=== PATIENT | male | born 1940 | race Caucasian/White ===

== ENCOUNTER 2017-03-24 06:44 | Inpatient (IN) | payer MEDICARE, BC ==
--- NOTE | 2017-03-24 07:35 | EDM.PDOC ---
ED HPI GENERAL MEDICAL PROBLEM - General Chief Complaint: General Stated Complaint: NOT FEELING WELL Time Seen by Provider: 03/24/17 07:56 Source of Information: Reports: Patient, Family History Limitations: Reports: No Limitations - History of Present Illness INITIAL COMMENTS - FREE TEXT/NARRATIVE: pt has been forgetful then usual , He has had congestion in the sinus area. He has been sob. He is blowing out thick yellow sputum. He has some ankle swelling and this may be mildly increased. Onset: Gradual Duration: Hour(s): Location: Reports: Generalized Associated Symptoms: Reports: Cough, Other (pt is forgetful recently. He recently has been more forgetful than usual. ) abdomen Pain Score (Numeric/FACES): 4 - Related Data Allergies Allergy/AdvReac Type Severity Reaction Status Date / Time azithromycin AdvReac Severe Jaundice Verified 03/24/17 13:58 Home Meds: Home Meds Omeprazole Magnesium [Prilosec Otc] 20 mg PO DAILY 05/23/14 [History] Triamcinolone Acetonide [Triamcinolone Acetonide 0.1% Crm] 1 cm TOP BID [History] Spironolactone [Aldactone] 100 mg PO DAILY 09/01/15 [History] Albuterol Sulfate [Proair Hfa] 1 - 2 puff IH Q4H PRN 03/24/17 [History] Ascorbic Acid 500 mg PO DAILY 03/24/17 [History] Escitalopram [Lexapro] 10 mg PO DAILY 03/24/17 [History] Furosemide 40 mg PO DAILY 03/24/17 [History] Multivit-Min/FA/Lycopene/Lut [Centrum Silver Tablet] 1 each PO DAILY 03/24/17 [ History] Propranolol [Inderal] 10 mg PO BID 03/24/17 [History] Past Medical History HEENT History: Reports: Cataract Cardiovascular History: Reports: Hypertension Respiratory History: Reports: Bronchitis, Recurrent Gastrointestinal History: Reports: Cirrhosis, GI Bleed, PUD Other Gastrointestinal History: fatty liver Musculoskeletal History: Reports: Arthritis Neurological History: Reports: CVA Dermatologic History: Reports: Other (See Below) Other Dermatologic History: rash back of neck - Infectious Disease History Infectious Disease History: Reports: Chicken Pox, Measles, Mumps - Past Surgical History HEENT Surgical History: Reports: Cataract Surgery GI Surgical History: Reports: Cholecystectomy, Colonoscopy, Hernia, Abdominal, Other (See Below) Social & Family History - Family History Cardiac: Reports: Blood Clots/VTE/DVT Dermatologic: Reports: Eczema - Tobacco Use Smoking Status *Q: Never Smoker Used Tobacco, but Quit: Yes Month Tobacco Last Used: Aug 1977 - Alcohol Use Days Per Week of Alcohol Use: 0 - Recreational Drug Use Recreational Drug Use: No ED ROS GENERAL - Review of Systems Review Of Systems: See Below Constitutional: Reports: No Symptoms HEENT: Reports: No Symptoms, Sinus Problem, Other Respiratory: Reports: No Symptoms Endocrine: Reports: No Symptoms GI/Abdominal: Reports: Other (pt has a known history of cirrohosis of the liver) : Reports: No Symptoms Musculoskeletal: Reports: No Symptoms Skin: Reports: No Symptoms Neurological: Reports: No Symptoms Psychiatric: Reports: Anxiety ED EXAM, GENERAL - Physical Exam Exam: See Below Free Text/Narrative:: pt arrived with increased weakness. He is having difficulty getting in and out of a chair by himself. He has had a couple of falls in the last week, He has had a cough and has been raising some yellow sputum. He has been very forgetful which is unusual for him.He has a known diagnosis of cirrohosis. Exam Limited By: No Limitations General Appearance: Alert, No Apparent Distress, Other (pupils are equal and reactive. ) Ears: Normal External Exam Nose: Normal Inspection Throat/Mouth: Normal Inspection Head: Atraumatic Neck: Carotid Bruit Respiratory/Chest: No Respiratory Distress Cardiovascular: Regular Rate, Rhythm GI/Abdominal: Soft, Non-Tender (Male) Exam: Deferred Rectal (Males) Exam: Deferred Back Exam: Normal Inspection Extremities: Pedal Edema, Other (pt has plus 1 edema, ) Neurological: Alert, Oriented, Other (pt is having difficulty recalling th e events of the past day. ) Course - Vital Signs Last Recorded V/S: Last Vital Signs Temp 36.6 C 03/25/17 03:00 Pulse 58 L 03/25/17 03:00 Resp 17 03/25/17 03:00 BP 126/58 L 03/25/17 03:00 Pulse Ox 96 03/25/17 03:00 Orthostatic Blood Pressure [ 111/63 Standing] Orthostatic Blood Pressure [ 115/66 Sitting] Orthostatic Blood Pressure [ 130/60 Supine] - Orders/Labs/Meds Orders: Active Orders 24 hr Category Date Time Status CULTURE BLOOD [BC] Urgent Lab 03/24/17 10:05 Received CULTURE BLOOD [BC] Urgent Lab 03/24/17 10:08 Received Blood Culture x2 Reflex Set [OM.PC] Urgent Oth 03/24/17 10:01 Ordered Medication Orders Acetaminophen (Tylenol) 650 mg PO Q4H PRN PRN Reason: Pain (Mild 1-3)/fever Albuterol (Proventil Neb Soln) 2.5 mg NEB Q4H PRN PRN Reason: Shortness Of Breath/wheezing Escitalopram Oxalate (Lexapro) 10 mg PO DAILY [facility] Ceftriaxone Sodium 2 gm/ (Sodium Chloride) 50 mls @ 100 mls/hr IV Q24H [facility] Ondansetron HCl (Zofran Odt) 4 mg PO Q6H PRN PRN Reason: Nausea able to take PO Pantoprazole Sodium (Protonix) 40 mg PO ACBREAKFAST [facility] Last Admin: 03/25/17 07:47 Dose: 40 mg Propranolol HCl (Inderal) 10 mg PO BID [facility] Labs: Laboratory Tests 03/24/17 03/24/17 03/24/17 Range/Units 07:34 07:34 07:58 WBC 4.7 (4.5-11.0) K/uL RBC 3.90 L (4.30-5.90) M/uL Hgb 14.7 (12.0-15.0) g/dL Hct 41.0 (40.0-54.0) % MCV 105 H (80-98) fL MCH 38 H (27-31) pg MCHC 36 (32-36) % Plt Count 89 L (150-400) K/uL Neut % (Auto) 53 (36-66) % Lymph % (Auto) 26 (24-44) % [place] % (Auto) 14 H (2-6) % Eos % (Auto) 7 H (2-4) % Baso % (Auto) 1 (0-1) % Sodium 139 L (140-148) mmol/L Potassium 3.9 (3.6-5.2) mmol/L Chloride 105 (100-108) mmol/L Carbon Dioxide 26 (21-32) mmol/L Anion Gap 11.9 (5.0-14.0) mmol/L BUN 17 (7-18) mg/dL Creatinine 1.3 (0.8-1.3) mg/dL Est Cr Clr Drug Dosing 48.34 mL/min Estimated GFR (MDRD) 54 L (>60) Glucose 88 (74-106) mg/dL Calcium 7.8 L (8.5-10.1) mg/dL Total Bilirubin 3.4 H (0.2-1.0) mg/dL AST 50 H (15-37) U/L ALT 39 (12-78) U/L Alkaline Phosphatase 93 (46-116) U/L Ammonia (11-32) mmol/L NT-Pro-B Natriuret Pep 315 (5-450) pg/mL Total Protein 5.9 L (6.4-8.2) g/dL Albumin 2.5 L (3.4-5.0) g/dL Globulin 3.4 (2.3-3.5) g/dL Albumin/Globulin Ratio 0.7 L (1.2-2.2) Lipase (73-393) U/L Urine Color Urine Appearance Urine pH (4.5-8.0) Ur Specific [place] (1.008-1.030) Urine Protein (NEGATIVE) mg/dL Urine Glucose (UA) (NEGATIVE) mg/dL Urine Ketones (NEGATIVE) mg/dL Urine Occult Blood (NEGATIVE) Urine Nitrite (NEGAITVE) Urine Bilirubin (NEGATIVE) Urine Urobilinogen (NORMAL) mg/dL Ur Leukocyte Esterase (NEGATIVE) Urine RBC (0-5) Urine WBC (0-5) Ur Epithelial Cells Amorphous Sediment Urine Bacteria Urine Mucus 03/24/17 03/24/17 03/24/17 Range/Units 07:59 08:04 08:11 WBC (4.5-11.0) K/uL RBC (4.30-5.90) M/uL Hgb (12.0-15.0) g/dL Hct (40.0-54.0) % MCV (80-98) fL MCH (27-31) pg MCHC (32-36) % Plt Count (150-400) K/uL Neut % (Auto) (36-66) % Lymph % (Auto) (24-44) % [place] % (Auto) (2-6) % Eos % (Auto) (2-4) % Baso % (Auto) (0-1) % Sodium (140-148) mmol/L Potassium (3.6-5.2) mmol/L Chloride (100-108) mmol/L Carbon Dioxide (21-32) mmol/L Anion Gap (5.0-14.0) mmol/L BUN (7-18) mg/dL Creatinine (0.8-1.3) mg/dL Est Cr Clr Drug Dosing mL/min Estimated GFR (MDRD) (>60) Glucose (74-106) mg/dL Calcium (8.5-10.1) mg/dL Total Bilirubin (0.2-1.0) mg/dL AST (15-37) U/L ALT (12-78) U/L Alkaline Phosphatase (46-116) U/L Ammonia 163 H (11-32) mmol/L NT-Pro-B Natriuret Pep (5-450) pg/mL Total Protein (6.4-8.2) g/dL Albumin (3.4-5.0) g/dL Globulin (2.3-3.5) g/dL Albumin/Globulin Ratio (1.2-2.2) Lipase 170 (73-393) U/L Urine Color Yellow Urine Appearance Slightly cloudy Urine pH 7.0 (4.5-8.0) Ur Specific [place] 1.010 (1.008-1.030) Urine Protein Negative (NEGATIVE) mg/dL Urine Glucose (UA) Normal (NEGATIVE) mg/dL Urine Ketones Negative (NEGATIVE) mg/dL Urine Occult Blood Negative (NEGATIVE) Urine Nitrite Negative (NEGAITVE) Urine Bilirubin Negative (NEGATIVE) Urine Urobilinogen 4 (NORMAL) mg/dL Ur Leukocyte Esterase Negative (NEGATIVE) Urine RBC 0-5 (0-5) Urine WBC 0-5 (0-5) Ur Epithelial Cells Few Amorphous Sediment Rare Urine Bacteria Rare Urine Mucus Not seen Meds: Medications Generic Name Dose Route Start Last Admin Trade Name Freq PRN Reason Stop Dose Admin Acetaminophen 650 mg 03/24/17 13:59 Tylenol PO Q4H PRN Pain (Mild 1-3)/fever Albuterol 2.5 mg 03/24/17 13:59 Proventil Neb Soln NEB Q4H PRN Shortness Of Breath/wheezing Escitalopram Oxalate 10 mg 03/25/17 09:00 Lexapro PO DAILY JAI Ceftriaxone Sodium 2 gm/ 50 mls @ 100 mls/hr 03/25/17 12:00 Sodium Chloride IV Q24H JAI Ondansetron HCl 4 mg 03/24/17 13:59 Zofran Odt PO Q6H PRN Nausea able to take PO Pantoprazole Sodium 40 mg 03/25/17 07:30 03/25/17 07:47 Protonix PO 40 mg ACBREAKFAST JAI Administration Propranolol HCl 10 mg 03/24/17 21:00 Inderal PO BID JAI Discontinued Medications Generic Name Dose Route Start Last Admin Trade Name Freq PRN Reason Stop Dose Admin Sodium Chloride 1,000 mls @ 200 mls/hr 03/24/17 10:15 03/24/17 10:58 Normal Saline IV 200 mls/hr ASDIRECTED JAI Administration Ceftriaxone Sodium 1 gm/ 50 mls @ 100 mls/hr 03/24/17 10:02 03/24/17 10:58 Sodium Chloride IV 03/24/17 10:31 100 mls/hr ONETIME ONE Administration Ceftriaxone Sodium 1 gm/ 50 mls @ 100 mls/hr 03/24/17 23:59 03/24/17 23:21 Sodium Chloride IV 03/25/17 00:28 100 mls/hr ONETIME ONE Administration Sodium Chloride 1,000 mls @ 125 mls/hr 03/24/17 13:59 Normal Saline IV 03/24/17 22:00 ASDIRECTED JAI Lactulose 10 gm 03/24/17 12:15 03/24/17 13:57 Chronulac PO 03/24/17 12:16 10 gm ONETIME ONE Administration - Re-Assessments/Exams Free Text/Narrative Re-Assessment/Exam: 03/24/17 09:27 pt has an elevated amonia level. His chest xray shows an infiltrate at the rt lung base. His urine is clear. A cat scan of the head is unchanged. His bilirubin is 3. Departure - Departure Time of Disposition: 03:00 Disposition: Admitted As Inpatient 67 Condition: Fair Clinical Impression: Increased ammonia level Pneumonia involving right lung Qualifiers: Pneumonia type: due to unspecified organism Lung location: lower lobe of lung Qualified Code(s): J18.1 - Lobar pneumonia, unspecified organism Cirrhosis of liver Qualifiers: Hepatic cirrhosis type: other cirrhosis Qualified Code(s): K74.69 - Other cirrhosis of liver - Discharge Information - My Orders Last 24 Hours: My Active Orders 03/24/17 10:01 Blood Culture x2 Reflex Set [OM.PC] Urgent 03/24/17 10:05 CULTURE BLOOD [BC] Urgent 03/24/17 10:08 CULTURE BLOOD [BC] Urgent - Assessment/Plan Last 24 Hours: My Active Orders 03/24/17 10:01 Blood Culture x2 Reflex Set [OM.PC] Urgent 03/24/17 10:05 CULTURE BLOOD [BC] Urgent 03/24/17 10:08 CULTURE BLOOD [BC] Urgent
--- NOTE | 2017-03-24 08:49 | CR ---
Low lung volumes. Heart size is mildly enlarged. Streaky density within the right middle lobe indicat es atelectasis or infiltrate. Recommend radiographic follow-up. Remote right rib fractures.
--- NOTE | 2017-03-24 09:02 | CT ---
CT head without contrast. Total DLP 763. Findings: There is mild-moderate atrophy. No mass effect or midline shift. No hemorrhage. No subacute territorial infarct. Trace fluid within the right mastoid air cells. This was evident on remote exam inations as well. Calvarium is intact. Impression: 1. No acute intracranial process by CT
[2017-03-24] MEDS ORDERED: cefTRIAXone 1 GM in Sodium Chloride 0.9% 50 ML IV ONE ×2 (10:02→23:59)
[2017-03-24] MEDS ORDERED: Sodium Chloride 0.9% 1,000 ML IV SCH ×2 (10:15→13:59)
--- NOTE | 2017-03-24 12:09 | PCM.HP ---
H&P History of Present Illness - General Date of Service: 03/24/17 Admit Problem/Dx: Admission Diagnosis/Problem Admission Diagnosis/Problem Right lower lobe pneumonia Source of Information: Patient, Provider History Limitations: Reports: No Limitations - History of Present Illness Initial Comments - Free Text/Narative: Donny presents to the emergency room today with several days of weakness. He reports a slow decline over the last several days with increasing weakness and a couple of falls. He feels lightheaded when he is standing up. He also reports a mild nonproductive cough over the past 24 hours. He doesn't think that he's had any fevers. He has mild shortness of breath. No report of chest pain or abdominal pain. Appetite has been normal. He has had normal bowel movements. No complaints of urinary frequency or urgency. His family thinks that maybe he's been a little more confused. He reports a normal sleep pattern. Workup in the emergency room revealed an elevated ammonia level at greater than 150 as well as possibly a right lower lobe pneumonia. He is weak and has positive orthostatic vitals and is not safe for outpatient management at this time. abdomen Pain Score (Numeric/FACES): 4 - Related Data Allergies/Adverse Reactions: Allergies Allergy/AdvReac Type Severity Reaction Status Date / Time azithromycin AdvReac Severe Jaundice Verified 03/24/17 13:58 Home Medications: Home Meds Omeprazole Magnesium [Prilosec Otc] 20 mg PO DAILY 05/23/14 [History] Triamcinolone Acetonide [Triamcinolone Acetonide 0.1% Crm] 1 cm TOP BID [History] Spironolactone [Aldactone] 100 mg PO DAILY 09/01/15 [History] Albuterol Sulfate [Proair Hfa] 1 - 2 puff IH Q4H PRN 03/24/17 [History] Ascorbic Acid 500 mg PO DAILY 03/24/17 [History] Escitalopram [Lexapro] 10 mg PO DAILY 03/24/17 [History] Furosemide 40 mg PO DAILY 03/24/17 [History] Multivit-Min/FA/Lycopene/Lut [Centrum Silver Tablet] 1 each PO DAILY 03/24/17 [ History] Propranolol [Inderal] 10 mg PO BID 03/24/17 [History] Past Medical History HEENT History: Reports: Cataract Cardiovascular History: Reports: Hypertension Respiratory History: Reports: Bronchitis, Recurrent Gastrointestinal History: Reports: Cirrhosis, GI Bleed, PUD Other Gastrointestinal History: fatty liver Genitourinary History: Reports: Urinary Incontinence Musculoskeletal History: Reports: Arthritis Neurological History: Reports: CVA Dermatologic History: Reports: Other (See Below) Other Dermatologic History: rash back of neck - Infectious Disease History Infectious Disease History: Reports: Chicken Pox, Measles, Mumps - Past Surgical History HEENT Surgical History: Reports: Cataract Surgery GI Surgical History: Reports: Cholecystectomy, Colonoscopy, Hernia, Abdominal, Other (See Below) Social & Family History - Family History Cardiac: Reports: Blood Clots/VTE/DVT Dermatologic: Reports: Eczema - Tobacco Use Smoking Status *Q: Never Smoker Used Tobacco, but Quit: Yes Month Tobacco Last Used: Aug 1977 - Caffeine Use Caffeine Use: Reports: Coffee Other Caffeine Use: very little - Alcohol Use Days Per Week of Alcohol Use: 0 - Recreational Drug Use Recreational Drug Use: No H&P Review of Systems - Review of Systems: Review Of Systems: See Below Free Text/Narrative: A complete 12 point review of systems was obtained. Pertinent positives and negatives are noted in the history of present illness. All other systems were reviewed and were negative except as noted. Exam - Exam Exam: See Below - Vital Signs Vital Signs: Last Vital Signs Temp 36.7 C 03/24/17 07:37 Pulse 68 03/24/17 07:37 Resp 18 03/24/17 07:37 BP 121/68 03/24/17 07:37 Pulse Ox 95 03/24/17 07:37 Orthostatic Blood Pressure [ 111/63 Standing] Orthostatic Blood Pressure [ 115/66 Sitting] Orthostatic Blood Pressure [ 130/60 Supine] Weight: 121.109 kg - Exam Quality Assessment: No: Supplemental Oxygen General: Alert, Oriented, Cooperative. No: Mild Distress HEENT: Conjunctiva Clear, Scleral Icterus. No: Mucosa Moist & [place] (dry) Neck: Supple, Trachea Midline. No: Lymphadenopathy Lungs: Normal Respiratory Effort, Rales (few right lung base) Cardiovascular: Regular Rhythm, Tachycardia GI/Abdominal Exam: Normal Bowel Sounds, Soft, Distended (mild), Tender (mild diffuse tenderness). No: Guarding, Rebound Extremities: Pedal Edema (pitting edema lower third of both shins). No: Increased Warmth Peripheral Pulses: 1+: Dorsalis Pedis (L), Dorsalis Pedis (R) Skin: Warm, Dry, Ecchymosis (right forearm) Neuro Extensive - Mental Status: Alert, Nl Response to Commands Neuro Extensive - Motor, Sensory, Reflexes: CN II-XII Intact, Tremor (mild asterixis ). No: Dysarthria, Abnormal Motor Psychiatric: Alert, Normal Affect - Patient Data Lab Results Last 24 hrs: Laboratory Results - last 24 hr 03/24/17 03/24/17 03/24/17 Range/Units 07:34 07:34 07:58 WBC 4.7 (4.5-11.0) K/uL RBC 3.90 L (4.30-5.90) M/uL Hgb 14.7 (12.0-15.0) g/dL Hct 41.0 (40.0-54.0) % MCV 105 H (80-98) fL MCH 38 H (27-31) pg MCHC 36 (32-36) % Plt Count 89 L (150-400) K/uL Neut % (Auto) 53 (36-66) % Lymph % (Auto) 26 (24-44) % [place] % (Auto) 14 H (2-6) % Eos % (Auto) 7 H (2-4) % Baso % (Auto) 1 (0-1) % Sodium 139 L (140-148) mmol/L Potassium 3.9 (3.6-5.2) mmol/L Chloride 105 (100-108) mmol/L Carbon Dioxide 26 (21-32) mmol/L Anion Gap 11.9 (5.0-14.0) mmol/L BUN 17 (7-18) mg/dL Creatinine 1.3 (0.8-1.3) mg/dL Est Cr Clr Drug Dosing 48.34 mL/min Estimated GFR (MDRD) 54 L (>60) Glucose 88 (74-106) mg/dL Calcium 7.8 L (8.5-10.1) mg/dL Total Bilirubin 3.4 H (0.2-1.0) mg/dL AST 50 H (15-37) U/L ALT 39 (12-78) U/L Alkaline Phosphatase 93 (46-116) U/L Ammonia (11-32) mmol/L NT-Pro-B Natriuret Pep 315 (5-450) pg/mL Total Protein 5.9 L (6.4-8.2) g/dL Albumin 2.5 L (3.4-5.0) g/dL Globulin 3.4 (2.3-3.5) g/dL Albumin/Globulin Ratio 0.7 L (1.2-2.2) Lipase (73-393) U/L Urine Color Urine Appearance Urine pH (4.5-8.0) Ur Specific [place] (1.008-1.030) Urine Protein (NEGATIVE) mg/dL Urine Glucose (UA) (NEGATIVE) mg/dL Urine Ketones (NEGATIVE) mg/dL Urine Occult Blood (NEGATIVE) Urine Nitrite (NEGAITVE) Urine Bilirubin (NEGATIVE) Urine Urobilinogen (NORMAL) mg/dL Ur Leukocyte Esterase (NEGATIVE) Urine RBC (0-5) Urine WBC (0-5) Ur Epithelial Cells Amorphous Sediment Urine Bacteria Urine Mucus 03/24/17 03/24/17 03/24/17 Range/Units 07:59 08:04 08:11 WBC (4.5-11.0) K/uL RBC (4.30-5.90) M/uL Hgb (12.0-15.0) g/dL Hct (40.0-54.0) % MCV (80-98) fL MCH (27-31) pg MCHC (32-36) % Plt Count (150-400) K/uL Neut % (Auto) (36-66) % Lymph % (Auto) (24-44) % [place] % (Auto) (2-6) % Eos % (Auto) (2-4) % Baso % (Auto) (0-1) % Sodium (140-148) mmol/L Potassium (3.6-5.2) mmol/L Chloride (100-108) mmol/L Carbon Dioxide (21-32) mmol/L Anion Gap (5.0-14.0) mmol/L BUN (7-18) mg/dL Creatinine (0.8-1.3) mg/dL Est Cr Clr Drug Dosing mL/min Estimated GFR (MDRD) (>60) Glucose (74-106) mg/dL Calcium (8.5-10.1) mg/dL Total Bilirubin (0.2-1.0) mg/dL AST (15-37) U/L ALT (12-78) U/L Alkaline Phosphatase (46-116) U/L Ammonia 163 H (11-32) mmol/L NT-Pro-B Natriuret Pep (5-450) pg/mL Total Protein (6.4-8.2) g/dL Albumin (3.4-5.0) g/dL Globulin (2.3-3.5) g/dL Albumin/Globulin Ratio (1.2-2.2) Lipase 170 (73-393) U/L Urine Color Yellow Urine Appearance Slightly cloudy Urine pH 7.0 (4.5-8.0) Ur Specific [place] 1.010 (1.008-1.030) Urine Protein Negative (NEGATIVE) mg/dL Urine Glucose (UA) Normal (NEGATIVE) mg/dL Urine Ketones Negative (NEGATIVE) mg/dL Urine Occult Blood Negative (NEGATIVE) Urine Nitrite Negative (NEGAITVE) Urine Bilirubin Negative (NEGATIVE) Urine Urobilinogen 4 (NORMAL) mg/dL Ur Leukocyte Esterase Negative (NEGATIVE) Urine RBC 0-5 (0-5) Urine WBC 0-5 (0-5) Ur Epithelial Cells Few Amorphous Sediment Rare Urine Bacteria Rare Urine Mucus Not seen Result Diagrams: 03/24/17 07:34 03/24/17 07:34 Imaging Impressions Last 24 hrs: CXR - images personally reviewed - there is a streaky density in the right lower lobe concerning for pneumonia. No mass or effusion. Heart size is normal. *Q Meaningful Use (ADM) - VTE *Q VTE Criteria *Q: VTE Pharmacological Contraindications *Q: Thrombocytopenia - VTE Risk Assess *Q Each Risk Factor Represents 1 Point: Swollen Legs, Current, Obesity (BMI greater than 30) Total Score 1 Point Risk Factors: 2 Each Risk Factor Represents 2 Points: None Total Score 2 Point Risk Factors: 0 Each Risk Factor Represents 3 Points: Age 75 Years or Greater Total Score 3 Point Risk Factors: 3 Each Risk Factor Represents 5 Points: None Total Score 5 Point Risk Factors: 0 Venous Thromboembolism Risk Factor Score *Q: 5 - Stroke *Q Stroke Criteria *Q: - AMI *Q AMI Criteria *Q: - Problem List (1) Pneumonia involving right lung SNOMED Code(s): 045796669 ICD Code: J18.9 - PNEUMONIA, UNSPECIFIED ORGANISM Status: Acute Current Visit: Yes Qualifiers: Pneumonia type: due to unspecified organism Lung location: lower lobe of lung Qualified Code(s): J18.1 - Lobar pneumonia, unspecified organism (2) Hepatic encephalopathy SNOMED Code(s): 25602624 ICD Code: K72.90 - HEPATIC FAILURE, UNSPECIFIED WITHOUT COMA Status: Acute Current Visit: Yes (3) Cirrhosis of liver SNOMED Code(s): 48806259 ICD Code: K74.60 - UNSPECIFIED CIRRHOSIS OF LIVER Status: Chronic Current Visit: Yes Qualifiers: Hepatic cirrhosis type: other cirrhosis Qualified Code(s): K74.69 - Other cirrhosis of liver Problem List Initiated/Reviewed/Updated: Yes Orders Last 24hrs: Active Orders 24 hr Category Date Time Status Patient Status Manage Transfer [TRANSFER] Routine ADT 03/24/17 11:57 Ordered Orthostatic Vital Signs [RC] ASDIRECTED Care 03/24/17 09:21 Active CULTURE BLOOD [BC] Urgent Lab 03/24/17 10:05 Received CULTURE BLOOD [BC] Urgent Lab 03/24/17 10:08 Received Lactulose [Chronulac] Med 03/24/17 11:56 Once 10 gm PO ONETIME ONE Sodium Chloride 0.9% [Normal Saline] 1,000 ml Med 03/24/17 10:15 Active IV ASDIRECTED Blood Culture x2 Reflex Set [OM.PC] Urgent Oth 03/24/17 10:01 Ordered Resuscitation Status Routine Resus Stat 03/24/17 11:58 Ordered Medication Orders Sodium Chloride (Normal Saline) 1,000 mls @ 200 mls/hr IV ASDIRECTED JAI Last Admin: 03/24/17 10:58 Dose: 200 mls/hr Lactulose (Chronulac) 10 gm PO ONETIME ONE Stop: 03/24/17 11:57 Assessment/Plan Comment:: Assessment and plan - Probable right lower lobe pneumonia - chest x-ray with linear density and he does have some crackles in this area. He has a nonproductive cough at this time that could suggest pneumonia with the above imaging findings. He does not appear to be septic. Active infection could explain the elevated ammonia level as discussed below. He is not currently hypoxic. -continue ceftriaxone -Follow-up cultures -Supplement oxygen if needed -IV fluids overnight with positive orthostatic vital signs Cryptogenic cirrhosis with mild hepatic encephalopathy - he is not aware of a previous history of elevated ammonia level. He has not previously been on lactulose. Intravascularly seems to be volume depleted at this time. He has thrombocytopenia but no impressive ascites at this time. Mild abdominal pain but concern for SBP is minimal at this time. -Hold diuretics -Lactulose 1 now -Repeat ammonia level in the morning Maintenance issues - - DVT prophylaxis - mechanical with thrombocytopenia - GI prophylaxis - not indicated - Nutrition - low sodium - Servin catheter - not indicated CODE STATUS - full code Admission justification - This patient will be admitted for inpatient services and is medically appropriate meeting medical necessity for inpatient admission as outlined in my documentation. I reasonably expect the patient will require inpatient services that span a period time over 2 midnights. I reasonably expect this patient to be discharged or transferred within 96 hours after admission to the [facility]. Disposition - anticipate discharge home with home health care after the hospital stay Primary care physician - Dr Nallely Nieto M.D.
[2017-03-24] MEDS ORDERED: Lactulose Soln 10 GM/15 ML 15 ML UD Cup PO ONE (12:15)
[2017-03-24] MEDS ORDERED: Albuterol 0.083% 2.5 MG/3 ML Neb Soln NEB PRN (13:59)
[2017-03-24] MEDS ORDERED: Ondansetron 4 MG Tab.DIS PO PRN (13:59)
[2017-03-24] MEDS ORDERED: Acetaminophen 325 MG Tab PO PRN (13:59)
[2017-03-25] MEDS: Pantoprazole 40 MG Tab.CR PO SCH (07:47)
[2017-03-25] MEDS ORDERED: Lactulose Soln 10 GM/15 ML 15 ML UD Cup PO ONE (09:00)
[2017-03-25] MEDS: Escitalopram 10 MG Tab PO SCH (09:08)
--- NOTE | 2017-03-25 11:56 | PCM.PN ---
- General Info Date of Service: 03/25/17 Functional Status: Reports: Pain Controlled, Tolerating Diet, Ambulating - Review of Systems General: Reports: Weakness Pulmonary: Denies: Shortness of Breath Gastrointestinal: Denies: Abdominal Pain Systems Review Comment:: No acute events overnight but he did not sleep well because of his room transfer in the middle of the night. He reports that he feels a little better today and is stronger but still remains weak. He does not have much in the way of a cough and has not had any fevers. No abdominal pain reported today. Cultures are negative. Ammonia level is down to 66. - Patient Data Vitals - Most Recent: Last Vital Signs Temp 36.7 C 03/25/17 11:09 Pulse 83 03/25/17 11:09 Resp 16 03/25/17 08:32 BP 158/63 H 03/25/17 11:09 Pulse Ox 91 L 03/25/17 11:09 Orthostatic Blood Pressure [ 120/64 Standing] Orthostatic Blood Pressure [ 140/77 Sitting] Orthostatic Blood Pressure [ 158/63 Supine] Weight - Most Recent: 125.191 kg I&O - Last 24 Hours: Intake & Output 03/24/17 03/25/17 03/25/17 22:59 06:59 14:59 Intake Total 1700 835 620 Balance 1700 835 620 Lab Results Last 24 Hours: Laboratory Results - last 24 hr 03/25/17 03/25/17 03/25/17 Range/Units 05:11 05:45 06:05 WBC 3.4 L (4.5-11.0) K/uL RBC 3.71 L (4.30-5.90) M/uL Hgb 13.7 (12.0-15.0) g/dL Hct 39.6 L (40.0-54.0) % MCV 107 H (80-98) fL MCH 37 H (27-31) pg MCHC 35 (32-36) % Plt Count 72 L (150-400) K/uL Sodium 140 (140-148) mmol/L Potassium 4.3 (3.6-5.2) mmol/L Chloride 109 H (100-108) mmol/L Carbon Dioxide 25 (21-32) mmol/L Anion Gap 10.3 (5.0-14.0) mmol/L BUN 16 (7-18) mg/dL Creatinine 1.1 (0.8-1.3) mg/dL Est Cr Clr Drug Dosing 57.13 mL/min Estimated GFR (MDRD) > 60 (>60) Glucose 81 (74-106) mg/dL Calcium 7.5 L (8.5-10.1) mg/dL Total Bilirubin 3.8 H (0.2-1.0) mg/dL AST 44 H (15-37) U/L ALT 35 (12-78) U/L Alkaline Phosphatase 74 (46-116) U/L Ammonia 66 H (11-32) mmol/L Total Protein 5.2 L (6.4-8.2) g/dL Albumin 2.2 L (3.4-5.0) g/dL Globulin 3.0 (2.3-3.5) g/dL Albumin/Globulin Ratio 0.7 L (1.2-2.2) Med Orders - Current: Current Medications Acetaminophen (Tylenol) 650 mg PO Q4H PRN PRN Reason: Pain (Mild 1-3)/fever Albuterol (Proventil Neb Soln) 2.5 mg NEB Q4H PRN PRN Reason: Shortness Of Breath/wheezing Escitalopram Oxalate (Lexapro) 10 mg PO DAILY [facility] Last Admin: 03/25/17 09:08 Dose: 10 mg Ceftriaxone Sodium 2 gm/ (Sodium Chloride) 50 mls @ 100 mls/hr IV Q24H [facility] Ondansetron HCl (Zofran Odt) 4 mg PO Q6H PRN PRN Reason: Nausea able to take PO Pantoprazole Sodium (Protonix) 40 mg PO ACBREAKFAST [facility] Last Admin: 03/25/17 07:47 Dose: 40 mg Propranolol HCl (Inderal) 10 mg PO BID [facility] Discontinued Medications Sodium Chloride (Normal Saline) 1,000 mls @ 200 mls/hr IV ASDIRECTED [facility] Last Admin: 03/24/17 10:58 Dose: 200 mls/hr Ceftriaxone Sodium 1 gm/ (Sodium Chloride) 50 mls @ 100 mls/hr IV ONETIME ONE Stop: 03/24/17 10:31 Last Admin: 03/24/17 10:58 Dose: 100 mls/hr Ceftriaxone Sodium 1 gm/ (Sodium Chloride) 50 mls @ 100 mls/hr IV ONETIME ONE Stop: 03/25/17 00:28 Last Admin: 03/24/17 23:21 Dose: 100 mls/hr Sodium Chloride (Normal Saline) 1,000 mls @ 125 mls/hr IV ASDIRECTED [facility] Stop: 03/24/17 22:00 Lactulose (Chronulac) 10 gm PO ONETIME ONE Stop: 03/24/17 12:16 Last Admin: 03/24/17 13:57 Dose: 10 gm Lactulose (Chronulac) 10 gm PO ONETIME ONE Stop: 03/25/17 09:01 Last Admin: 03/25/17 09:08 Dose: 10 gm - Exam Quality Assessment: No: Supplemental Oxygen General: Alert, Oriented, Cooperative, No Acute Distress Neck: Supple Lungs: Clear to Auscultation, Normal Respiratory Effort Cardiovascular: Regular Rate, Regular Rhythm GI/Abdominal Exam: Soft, No Distention Extremities: No Pedal Edema. No: Increased Warmth Skin: Warm, Dry Psy/Mental Status: Alert, Normal Affect - Problem List & Annotations (1) Pneumonia involving right lung SNOMED Code(s): 602486091 Code(s): J18.9 - PNEUMONIA, UNSPECIFIED ORGANISM Status: Acute Current Visit: Yes Qualifiers: Pneumonia type: due to unspecified organism Lung location: lower lobe of lung Qualified Code(s): J18.1 - Lobar pneumonia, unspecified organism (2) Hepatic encephalopathy SNOMED Code(s): 37232870 Code(s): K72.90 - HEPATIC FAILURE, UNSPECIFIED WITHOUT COMA Status: Acute Current Visit: Yes (3) Cirrhosis of liver SNOMED Code(s): 01039804 Code(s): K74.60 - UNSPECIFIED CIRRHOSIS OF LIVER Status: Chronic Current Visit: Yes Qualifiers: Hepatic cirrhosis type: other cirrhosis Qualified Code(s): K74.69 - Other cirrhosis of liver - Problem List Review Problem List Initiated/Reviewed/Updated: Yes - My Orders Last 24 Hours: My Active Orders 03/24/17 11:58 Resuscitation Status Routine 03/24/17 13:59 Patient Status [ADT] Routine Bedrest Bathroom Privileges [RC] ASDIRECTED Intake and Output [RC] Q12H Notify Provider Vital Signs [RC] ASDIRECTED Oxygen Therapy [RC] .PRN RT Aerosol Therapy [RC] ASDIRECTED Up With Assistance [RC] ASDIRECTED VTE/DVT Education [RC] Per Unit Routine Vital Signs [RC] Q4H Acetaminophen [Tylenol] 650 mg PO Q4H PRN Albuterol [Proventil Neb Soln] 2.5 mg NEB Q4H PRN Ondansetron [Zofran ODT] 4 mg PO Q6H PRN Antiembolic Hose [OM.PC] Per Unit Routine 03/24/17 Lunch 2 Gram Sodium Diet [DIET] 03/25/17 07:00 Orthostatic Vital Signs [RC] DAILY PT Evaluation and Treatment [CONS] Routine 03/25/17 07:30 Pantoprazole [ProTONIX] 40 mg PO ACBREAKFAST 03/25/17 12:00 cefTRIAXone [Rocephin] 2 gm Sodium Chloride 0.9% [Normal Saline] 50 ml IV Q24H 03/26/17 05:00 AMMONIA VENOUS [CHEM] Timed BASIC METABOLIC PANEL,BMP [CHEM] Timed CBC W/O DIFF,HEMOGRAM [HEME] Timed (1) 03/26/17 09:00 Furosemide [Lasix] 40 mg PO DAILY Spironolactone [Aldactone] 100 mg PO DAILY - Plan Plan:: Assessment and Plan - Probable right lower lobe pneumonia - clinically doing fairly well at this point. Still no evidence for hypoxia. Cultures negative so far. Orthostatic pressures better this morning. 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 volume status more appropriate. Ammonia level improving. -Hold diuretics, restart tomorrow -Lactulose 1 again this morning -Repeat ammonia level in the morning Essential tremor - stable at this time. -Restart propranolol Maintenance issues - - DVT prophylaxis - mechanical with thrombocytopenia - GI prophylaxis - not indicated - Nutrition - low sodium Disposition - anticipate discharge home with home health care after the hospital stay Toby Nieto M.D.
[2017-03-25] MEDS: cefTRIAXone 2 GM in Sodium Chloride 0.9% 50 ML IV SCH (12:50)
[2017-03-25] MEDS: Propranolol 10 MG Tab PO SCH ×2 (13:36→20:30)
[2017-03-26] MEDS: Pantoprazole 40 MG Tab.CR PO SCH (07:46)
[2017-03-26] MEDS: Propranolol 10 MG Tab PO SCH ×2 (08:00→21:26)
[2017-03-26] MEDS: Furosemide 40 MG Tab PO SCH (08:01)
[2017-03-26] MEDS: Escitalopram 10 MG Tab PO SCH (08:02)
[2017-03-26] MEDS: Spironolactone 25 MG Tab PO SCH (09:56)
[2017-03-26] MEDS: cefTRIAXone 2 GM in Sodium Chloride 0.9% 50 ML IV SCH (13:09)
--- NOTE | 2017-03-26 15:23 | PCM.PN ---
- General Info Date of Service: 03/26/17 Functional Status: Reports: Pain Controlled, Tolerating Diet, Ambulating - Review of Systems General: Reports: Weakness. Denies: Fever Pulmonary: Denies: Shortness of Breath Systems Review Comment:: No acute events overnight. Confusion has been stable to improved. Strength seems to be slowly improving but he still requires the assist of 1 to get around. He has not had any fevers. Not much in the way of cough. Appetite is improving. Slept well last night. No abdominal pain. Cultures negative. - Patient Data Vitals - Most Recent: Last Vital Signs Temp 37.1 C 03/26/17 07:56 Pulse 71 03/26/17 08:00 Resp 20 03/26/17 07:56 BP 153/77 H 03/26/17 08:00 Pulse Ox 97 03/26/17 07:56 Orthostatic Blood Pressure [ 130/61 Standing] Orthostatic Blood Pressure [ 132/74 Sitting] Orthostatic Blood Pressure [ 115/52 Supine] Weight - Most Recent: 125.191 kg I&O - Last 24 Hours: Intake & Output 03/26/17 03/26/17 03/26/17 06:59 14:59 22:59 Intake Total 120 Output Total 125 1 Balance -125 119 Lab Results Last 24 Hours: Laboratory Results - last 24 hr 03/26/17 03/26/17 03/26/17 Range/Units 05:15 05:15 05:15 WBC 3.8 L (4.5-11.0) K/uL RBC 3.61 L (4.30-5.90) M/uL Hgb 13.5 (12.0-15.0) g/dL Hct 38.6 L (40.0-54.0) % MCV 107 H (80-98) fL MCH 37 H (27-31) pg MCHC 35 (32-36) % Plt Count 75 L (150-400) K/uL Sodium 138 L (140-148) mmol/L Potassium 4.2 (3.6-5.2) mmol/L Chloride 108 (100-108) mmol/L Carbon Dioxide 25 (21-32) mmol/L Anion Gap 9.2 (5.0-14.0) mmol/L BUN 18 (7-18) mg/dL Creatinine 1.1 (0.8-1.3) mg/dL Est Cr Clr Drug Dosing 56.94 mL/min Estimated GFR (MDRD) > 60 (>60) Glucose 152 H (74-106) mg/dL Calcium 7.5 L (8.5-10.1) mg/dL Ammonia 70 H (11-32) mmol/L Med Orders - Current: Current Medications Acetaminophen (Tylenol) 650 mg PO Q4H PRN PRN Reason: Pain (Mild 1-3)/fever Albuterol (Proventil Neb Soln) 2.5 mg NEB Q4H PRN PRN Reason: Shortness Of Breath/wheezing Cefdinir (Omnicef) 300 mg PO BID [facility] Escitalopram Oxalate (Lexapro) 10 mg PO DAILY [facility] Last Admin: 03/26/17 08:02 Dose: 10 mg Furosemide (Lasix) 40 mg PO DAILY [facility] Last Admin: 03/26/17 08:01 Dose: 40 mg Ondansetron HCl (Zofran Odt) 4 mg PO Q6H PRN PRN Reason: Nausea able to take PO Pantoprazole Sodium (Protonix) 40 mg PO ACBREAKFAST [facility] Last Admin: 03/26/17 07:46 Dose: 40 mg Propranolol HCl (Inderal) 10 mg PO BID [facility] Last Admin: 03/26/17 08:00 Dose: 10 mg Spironolactone (Aldactone) 100 mg PO DAILY [facility] Last Admin: 03/26/17 09:56 Dose: 100 mg Discontinued Medications Sodium Chloride (Normal Saline) 1,000 mls @ 200 mls/hr IV ASDIRECTED [facility] Last Admin: 03/24/17 10:58 Dose: 200 mls/hr Ceftriaxone Sodium 1 gm/ (Sodium Chloride) 50 mls @ 100 mls/hr IV ONETIME ONE Stop: 03/24/17 10:31 Last Admin: 03/24/17 10:58 Dose: 100 mls/hr Ceftriaxone Sodium 2 gm/ (Sodium Chloride) 50 mls @ 100 mls/hr IV Q24H [facility] Last Admin: 03/26/17 13:09 Dose: 100 mls/hr Ceftriaxone Sodium 1 gm/ (Sodium Chloride) 50 mls @ 100 mls/hr IV ONETIME ONE Stop: 03/25/17 00:28 Last Admin: 03/24/17 23:21 Dose: 100 mls/hr Sodium Chloride (Normal Saline) 1,000 mls @ 125 mls/hr IV ASDIRECTED [facility] Stop: 03/24/17 22:00 Lactulose (Chronulac) 10 gm PO ONETIME ONE Stop: 03/24/17 12:16 Last Admin: 03/24/17 13:57 Dose: 10 gm Lactulose (Chronulac) 10 gm PO ONETIME ONE Stop: 03/25/17 09:01 Last Admin: 03/25/17 09:08 Dose: 10 gm - Exam Quality Assessment: No: Supplemental Oxygen General: Alert, Oriented, Cooperative, No Acute Distress Neck: Supple Lungs: Clear to Auscultation, Normal Respiratory Effort Cardiovascular: Regular Rate, Regular Rhythm GI/Abdominal Exam: Normal Bowel Sounds, Soft, Non-Tender, No Distention Extremities: Pedal Edema (Bilateral ankle edema). No: Increased Warmth Skin: Warm, Dry Psy/Mental Status: Alert, Normal Affect - Problem List & Annotations (1) Pneumonia involving right lung SNOMED Code(s): 346362027 Code(s): J18.9 - PNEUMONIA, UNSPECIFIED ORGANISM Status: Acute Current Visit: Yes Qualifiers: Pneumonia type: due to unspecified organism Lung location: lower lobe of lung Qualified Code(s): J18.1 - Lobar pneumonia, unspecified organism (2) Hepatic encephalopathy SNOMED Code(s): 07351718 Code(s): K72.90 - HEPATIC FAILURE, UNSPECIFIED WITHOUT COMA Status: Acute Current Visit: Yes (3) Cirrhosis of liver SNOMED Code(s): 82108542 Code(s): K74.60 - UNSPECIFIED CIRRHOSIS OF LIVER Status: Chronic Current Visit: Yes Qualifiers: Hepatic cirrhosis type: other cirrhosis Qualified Code(s): K74.69 - Other cirrhosis of liver - Problem List Review Problem List Initiated/Reviewed/Updated: Yes - My Orders Last 24 Hours: My Active Orders 03/26/17 09:00 Furosemide [Lasix] 40 mg PO DAILY Spironolactone [Aldactone] 100 mg PO DAILY 03/27/17 05:00 AMMONIA VENOUS [CHEM] Timed CBC W/O DIFF,HEMOGRAM [HEME] Timed (1) 03/27/17 09:00 Cefdinir [Omnicef] 300 mg PO BID - Plan Plan:: Assessment and Plan - Probable right lower lobe pneumonia - clinically doing well. No cough or hypoxia. Strength seems to be slowly improving. 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 No evidence for significant confusion. -Restarting diuretics today -Lactulose as needed -Repeat ammonia level in the morning Essential tremor - stable at this time. -Continue propranolol Maintenance issues - - DVT prophylaxis - mechanical with thrombocytopenia - GI prophylaxis - not indicated - Nutrition - low sodium Disposition - anticipate discharge home with outpatient physical therapy after the hospital stay, likely tomorrow if stable overnight Toby Nieto M.D.
[2017-03-27] MEDS: Pantoprazole 40 MG Tab.CR PO SCH (07:43)
[2017-03-27] MEDS ORDERED: Cefdinir 300 MG Cap PO SCH (09:00)
[2017-03-27] MEDS: Propranolol 10 MG Tab PO SCH (09:28)
[2017-03-27] MEDS: Spironolactone 25 MG Tab PO SCH (09:28)
[2017-03-27] MEDS: Furosemide 40 MG Tab PO SCH (09:29)
[2017-03-27] MEDS: Escitalopram 10 MG Tab PO SCH (09:30)
[2017-03-27 09:31] VITALS: BP 114/56
--- NOTE | 2017-03-27 10:13 | PCM.DCSUM1 ---
Discharge Summary - Hospital Course Brief History: 77 -year-old male with history of cryptogenic cirrhosis who presented with weakness, falls and a cough and was admitted for management of community-acquired pneumonia complicated by mild hepatic encephalopathy. - Discharge Data Discharge Date: 03/27/17 Discharge Disposition: Home, Self-Care 01 Condition: Good - Discharge Diagnosis/Problem(s) (1) Pneumonia involving right lung SNOMED Code(s): 275513823 ICD Code: J18.9 - PNEUMONIA, UNSPECIFIED ORGANISM Status: Acute Qualifiers: Pneumonia type: due to unspecified organism Lung location: lower lobe of lung Qualified Code(s): J18.1 - Lobar pneumonia, unspecified organism (2) Hepatic encephalopathy SNOMED Code(s): 45043599 ICD Code: K72.90 - HEPATIC FAILURE, UNSPECIFIED WITHOUT COMA Status: Acute (3) Cirrhosis of liver SNOMED Code(s): 60770929 ICD Code: K74.60 - UNSPECIFIED CIRRHOSIS OF LIVER Status: Chronic Qualifiers: Hepatic cirrhosis type: other cirrhosis Qualified Code(s): K74.69 - Other cirrhosis of liver (4) Generalized weakness SNOMED Code(s): 86068491 ICD Code: R53.1 - WEAKNESS Status: Acute - Patient Summary/Data Consults: Consultations 03/25/17 07:00 PT Evaluation and Treatment [CONS] Routine Please Evaluate and Treat. PT Reason for Consult: Strengthening This query below is only for informational purposes and is not editable. Labs Pending at D/C: Final results of blood cultures which are negative at the time of discharge Hospital Course: Donny presented to the emergency room with weakness and confusion as well as a mild cough. Workup in the emergency room was suggestive of a mild right lower lobe pneumonia as well as hepatic encephalopathy with an elevated ammonia level. He was started on antibiotics and given a dose of lactulose and admitted to the hospital for further management. From a pneumonia standpoint he did quite well. He was never hypoxic. Tolerated antibiotics well and his cough essentially resolved. His generalized weakness to has improved fairly quickly, especially over the past 2 days. His ammonia level decreased following the initial dose of lactulose. He did receive a second dose the morning after admission and his ammonia level has remained very mildly elevated but stable since that time. The clinical evidence for hepatic encephalopathy has resolved and his mental status seems to be at baseline. His strength has improved quickly and I believe he is safe for outpatient management at this time. He will have antibiotics for 3 additional days. He is interested in some outpatient physical therapy and a referral has been placed so he can receive physical therapy at [facility]. He will continue his other usual medications including his diuretics. His orthostatic vital signs have been normal after his initial ones in the emergency room were abnormal. - Patient Instructions Diet: Low Sodium Activity: As Tolerated Showering/Bathing: May Shower Notify Provider of: Fever, Increased Pain, Nausea and/or Vomiting Other/Special Instructions: 1. You were in the hospital for management of community acquired pneumonia complicated by mild hepatic encephalopathy and generalized weakness. I recommend 5 additional doses of antibiotic therapy with cefdinir 300 mg taken twice daily. Your next dose is due tonight. 2. Please continue your usual home medications as previously prescribed. 3. I have completed a referral for outpatient physical therapy which will be performed at [facility]. 4. Please seek medical attention if you develop fever greater than 101, worsening cough or shortness of breath, or increasing confusion. - Discharge Plan Prescriptions/Med Rec: Cefdinir [IJD: Cefdinir] 300 mg PO BID #5 capsule Home Medications: Home Meds Omeprazole Magnesium [Prilosec Otc] 20 mg PO DAILY 05/23/14 [History] Triamcinolone Acetonide [Triamcinolone Acetonide 0.1% Crm] 1 cm TOP BID [History] Spironolactone [Aldactone] 100 mg PO DAILY 09/01/15 [History] Albuterol Sulfate [Proair Hfa] 1 - 2 puff IH Q4H PRN 03/24/17 [History] Ascorbic Acid 500 mg PO DAILY 03/24/17 [History] Escitalopram [Lexapro] 10 mg PO DAILY 03/24/17 [History] Furosemide 40 mg PO DAILY 03/24/17 [History] Multivit-Min/FA/Lycopene/Lut [Centrum Silver Tablet] 1 each PO DAILY 03/24/17 [ History] Propranolol [Inderal] 10 mg PO BID 03/24/17 [History] Cefdinir [IJD: Cefdinir] 300 mg PO BID #5 capsule 03/27/17 [Rx] Patient Handouts: Cefdinir capsules, Community-Acquired Pneumonia, Adult Referrals: Herb Browning MD [Primary Care Provider] - (1 week - follow-up hospital stay for pneumonia with hepatic encephalopathy and orthostatic hypotension) - Discharge Summary/Plan Comment DC Time >30 min.: No (25) - Patient Data Vitals - Most Recent: Last Vital Signs Temp 36.8 C 03/27/17 07:46 Pulse 63 03/27/17 09:28 Resp 16 03/27/17 07:46 BP 114/56 L 03/27/17 09:28 Pulse Ox 97 03/27/17 07:46 Orthostatic Blood Pressure [ 114/56 Standing] Orthostatic Blood Pressure [ 94/50 Sitting] Orthostatic Blood Pressure [ 114/52 Supine] Weight - Most Recent: 125.191 kg I&O - Last 24 hours: Intake & Output 03/26/17 03/27/17 03/27/17 22:59 06:59 14:59 Intake Total 290 Output Total 100 100 Balance 190 -100 Lab Results - Last 24 hrs: Laboratory Results - last 24 hr 03/27/17 03/27/17 Range/Units 04:30 04:30 WBC 4.4 L (4.5-11.0) K/uL RBC 3.72 L (4.30-5.90) M/uL Hgb 13.9 (12.0-15.0) g/dL Hct 39.8 L (40.0-54.0) % MCV 107 H (80-98) fL MCH 37 H (27-31) pg MCHC 35 (32-36) % Plt Count 79 L (150-400) K/uL Ammonia 52 H (11-32) mmol/L Med Orders - Current: Current Medications Acetaminophen (Tylenol) 650 mg PO Q4H PRN PRN Reason: Pain (Mild 1-3)/fever Albuterol (Proventil Neb Soln) 2.5 mg NEB Q4H PRN PRN Reason: Shortness Of Breath/wheezing Cefdinir (Omnicef) 300 mg PO BID [facility] Last Admin: 03/27/17 09:30 Dose: 300 mg Escitalopram Oxalate (Lexapro) 10 mg PO DAILY [facility] Last Admin: 03/27/17 09:30 Dose: 10 mg Furosemide (Lasix) 40 mg PO DAILY [facility] Last Admin: 03/27/17 09:29 Dose: 40 mg Ondansetron HCl (Zofran Odt) 4 mg PO Q6H PRN PRN Reason: Nausea able to take PO Pantoprazole Sodium (Protonix) 40 mg PO ACBREAKFAST [facility] Last Admin: 03/27/17 07:43 Dose: 40 mg Propranolol HCl (Inderal) 10 mg PO BID [facility] Last Admin: 03/27/17 09:28 Dose: 10 mg Spironolactone (Aldactone) 100 mg PO DAILY [facility] Last Admin: 03/27/17 09:28 Dose: 100 mg Discontinued Medications Sodium Chloride (Normal Saline) 1,000 mls @ 200 mls/hr IV ASDIRECTED [facility] Last Admin: 03/24/17 10:58 Dose: 200 mls/hr Ceftriaxone Sodium 1 gm/ (Sodium Chloride) 50 mls @ 100 mls/hr IV ONETIME ONE Stop: 03/24/17 10:31 Last Admin: 03/24/17 10:58 Dose: 100 mls/hr Ceftriaxone Sodium 2 gm/ (Sodium Chloride) 50 mls @ 100 mls/hr IV Q24H [facility] Last Admin: 03/26/17 13:09 Dose: 100 mls/hr Ceftriaxone Sodium 1 gm/ (Sodium Chloride) 50 mls @ 100 mls/hr IV ONETIME ONE Stop: 03/25/17 00:28 Last Admin: 03/24/17 23:21 Dose: 100 mls/hr Sodium Chloride (Normal Saline) 1,000 mls @ 125 mls/hr IV ASDIRECTED [facility] Stop: 03/24/17 22:00 Lactulose (Chronulac) 10 gm PO ONETIME ONE Stop: 03/24/17 12:16 Last Admin: 03/24/17 13:57 Dose: 10 gm Lactulose (Chronulac) 10 gm PO ONETIME ONE Stop: 03/25/17 09:01 Last Admin: 03/25/17 09:08 Dose: 10 gm *Q Meaningful Use (DIS) - VTE *Q VTE Criteria *Q: VTE Pharmacological Contraindications *Q: Thrombocytopenia - Stroke *Q Stroke Criteria *Q: - AMI *Q AMI Criteria *Q:
== END 2017-03-27 11:00 | disposition home or self-care (01) | DRG 195 ==
LOC: JP.ED 06:44 → JP.ICU 11:57 → JP.MS 03-25 02:25
PROVIDERS: ADMIT Internal Medicine; ATTEND Internal Medicine
DX: J18.1 Lobar pneumonia, unspecified organism (principal); K72.90 Hepatic failure, unspecified without coma; K74.69 Other cirrhosis of liver; R53.1 Weakness; G25.0 Essential tremor; Z79.899 Other long term (current) drug therapy
CPT/HCPCS: 36415; 70450 ×2; 71020 ×2; 80053; 81001; 82140; 83690; 83880; 85025; 87040 ×2; 96365; 99285; J0696; J7040; J7050; 80048; 85027; 97110-GP; 97162-GP; 97530-GP; A9270-GY

== ENCOUNTER 2017-04-18 20:02 | Inpatient (IN) | payer MEDICARE, BC ==
[2017-04-18] MEDS ORDERED: Sodium Chloride 0.9% 10 ML Syringe FLUSH PRN (20:55)
--- NOTE | 2017-04-18 21:04 | EDM.PDOC ---
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 He denies any fevers nausea vomiting shortness of breath or chest pain does describe some vague abdominal pain that is been going on for about one month predominately in the right upper quadrant. - Related Data Allergies Allergy/AdvReac Type Severity Reaction Status Date / Time azithromycin AdvReac Severe Jaundice Verified 04/18/17 21:32 Home Meds: Home Meds Omeprazole Magnesium [Prilosec Otc] 20 mg PO DAILY 05/23/14 [History] Triamcinolone Acetonide [Triamcinolone Acetonide 0.1% Crm] 1 cm TOP BID [History] Spironolactone [Aldactone] 100 mg PO DAILY 09/01/15 [History] Albuterol Sulfate [Proair Hfa] 1 - 2 puff IH Q4H PRN 03/24/17 [History] Ascorbic Acid 500 mg PO DAILY 03/24/17 [History] Escitalopram [Lexapro] 10 mg PO DAILY 03/24/17 [History] Furosemide 40 mg PO DAILY 03/24/17 [History] Multivit-Min/FA/Lycopene/Lut [Centrum Silver Tablet] 1 each PO DAILY 03/24/17 [ History] Propranolol [Inderal] 10 mg PO BID 03/24/17 [History] Cefdinir [IJD: Cefdinir] 300 mg PO BID #5 capsule 03/27/17 [Rx] Past Medical History HEENT History: Reports: Cataract Cardiovascular History: Reports: Hypertension Respiratory History: Reports: Bronchitis, Recurrent, Pneumonia, Recurrent Gastrointestinal History: Reports: Cirrhosis (Cryptogenic), GI Bleed, PUD Other Gastrointestinal History: fatty liver Genitourinary History: Reports: Urinary Incontinence Musculoskeletal History: Reports: Arthritis Neurological History: Reports: CVA Dermatologic History: Reports: Other (See Below) Other Dermatologic History: rash back of neck - Infectious Disease History Infectious Disease History: Reports: Measles, Mumps - Past Surgical History HEENT Surgical History: Reports: Cataract Surgery Cardiovascular Surgical History: Reports: None GI Surgical History: Reports: Cholecystectomy, Colonoscopy, Hernia, Abdominal, Other (See Below) Endocrine Surgical History: Reports: None Oncologic Surgical History: Reports: None Social & Family History - Family History Cardiac: Reports: Blood Clots/VTE/DVT Dermatologic: Reports: Eczema - Tobacco Use Smoking Status *Q: Never Smoker Used Tobacco, but Quit: Yes Month Tobacco Last Used: Aug 1977 Second Hand Smoke Exposure: No - Caffeine Use Caffeine Use: Reports: Coffee Other Caffeine Use: very little Caffeine Use Comment: rarely - Alcohol Use Days Per Week of Alcohol Use: 0 - Recreational Drug Use Recreational Drug Use: No ED ROS GENERAL - Review of Systems Review Of Systems: See Below Constitutional: Reports: Weakness HEENT: Reports: No Symptoms Respiratory: Reports: No Symptoms Cardiovascular: Reports: No Symptoms GI/Abdominal: Reports: Abdominal Pain. Denies: Constipation, Diarrhea, Nausea, Vomiting : Reports: No Symptoms Musculoskeletal: Reports: No Symptoms Skin: Reports: No Symptoms Neurological: Reports: Confusion Psychiatric: Reports: No Symptoms ED EXAM, GENERAL - Physical Exam Exam: See Below Free Text/Narrative:: General: Elderly male alert and not in any distress and answers questions appropriately follows commands HEENT: head is atraumatic normocephalic, eyes pupils equal round reactive to light, sclera yellow no conjunctivitis appreciated. Ears tympanic membranes clear and lalen landmarks and light reflex are present bilaterally canals are clear. Nose no septal deviation, nares are clear, no blood present. Mouth mucosa is moist and pink no erythema or exudate noted in soft palate, tongue is midline uvula is midline, dentition is intact. Neck: Supple no thyromegaly no tracheal deviation. Nodes: Cervical nodes subclavicular nodes nontender no palpable lymphadenopathy noted. Lungs: clear to auscultation bilaterally with symmetrical respirations, no adventitious noise appreciated. CV: Regular rate and rhythm S1 and S2 appreciated no murmurs rubs or gallops noted. Abdomen: Soft, nontender, no palpable masses or organomegaly appreciated, no distention no guarding bowel sounds are present, . Neuro: Cranial nerves II through XII grossly intact grant 5 x 5 in upper and lower extremities Skin: Warm and dry, intact Extremities: No lower extremity edema appreciated, Course - Vital Signs Last Recorded V/S: Last Vital Signs Temp 98.0 F 04/18/17 20:46 Pulse 55 L 04/18/17 22:07 Resp 14 04/18/17 22:07 BP 109/55 L 04/18/17 22:07 Pulse Ox 96 04/18/17 22:07 - Orders/Labs/Meds Orders: Active Orders 24 hr Category Date Time Status Peripheral IV Care [RC] . DIRECTED Care 04/18/17 20:58 Active Lactated Ringers [Ringers, Lactated] 1,000 ml Med 04/18/17 21:00 Active IV ASDIRECTED Sodium Chloride 0.9% [Saline Flush] Med 04/18/17 20:55 Active 10 ml FLUSH ASDIRECTED PRN Peripheral IV Insertion Adult [OM.PC] Urgent Oth 04/18/17 20:55 Ordered Medication Orders Lactated Ringer's (Ringers, Lactated) 1,000 mls @ 125 mls/hr IV ASDIRECTED JAI Last Admin: 04/18/17 21:20 Dose: 125 mls/hr Sodium Chloride (Saline Flush) 10 ml FLUSH ASDIRECTED PRN PRN Reason: Keep Vein Open Last Admin: 04/18/17 21:20 Dose: 10 ml Labs: Laboratory Tests 04/18/17 04/18/17 04/18/17 Range/Units 21:09 21:09 21:09 WBC 5.7 (4.5-11.0) K/uL RBC 3.91 L (4.30-5.90) M/uL Hgb 14.8 (12.0-15.0) g/dL Hct 41.7 (40.0-54.0) % MCV 107 H (80-98) fL MCH 38 H (27-31) pg MCHC 36 (32-36) % Plt Count 94 L (150-400) K/uL Neut % (Auto) 54 (36-66) % Lymph % (Auto) 27 (24-44) % [place] % (Auto) 15 H (2-6) % Eos % (Auto) 4 (2-4) % Baso % (Auto) 0 (0-1) % PT 13.6 H (9.5-12.0) sec INR 1.26 H (0.80-1.20) Sodium 142 (140-148) mmol/L Potassium 4.4 (3.6-5.2) mmol/L Chloride 109 H (100-108) mmol/L Carbon Dioxide 29 (21-32) mmol/L Anion Gap 8.4 (5.0-14.0) mmol/L BUN 22 H (7-18) mg/dL Creatinine 1.2 (0.8-1.3) mg/dL Est Cr Clr Drug Dosing 52.37 mL/min Estimated GFR (MDRD) 59 L (>60) Glucose 73 L (74-106) mg/dL Lactic Acid (0.4-2.0) mmol/L Calcium 7.9 L (8.5-10.1) mg/dL Total Bilirubin 3.0 H (0.2-1.0) mg/dL AST 52 H (15-37) U/L ALT 43 (12-78) U/L Alkaline Phosphatase 94 (46-116) U/L Ammonia (11-32) mmol/L Total Protein 6.1 L (6.4-8.2) g/dL Albumin 2.5 L (3.4-5.0) g/dL Globulin 3.6 H (2.3-3.5) g/dL Albumin/Globulin Ratio 0.7 L (1.2-2.2) Lipase 154 (73-393) U/L Urine Color Urine Appearance Urine pH (4.5-8.0) Ur Specific [place] (1.008-1.030) Urine Protein (NEGATIVE) mg/dL Urine Glucose (UA) (NEGATIVE) mg/dL Urine Ketones (NEGATIVE) mg/dL Urine Occult Blood (NEGATIVE) Urine Nitrite (NEGAITVE) Urine Bilirubin (NEGATIVE) Urine Urobilinogen (NORMAL) mg/dL Ur Leukocyte Esterase (NEGATIVE) Urine RBC (0-5) Urine WBC (0-5) Ur Epithelial Cells Amorphous Sediment Urine Bacteria Urine Mucus Urine Opiates Screen (NEGATIVE) Ur Oxycodone Screen (NEGATIVE) Urine Methadone Screen (NEGATIVE) Ur Propoxyphene Screen (NEGATIVE) Ur Barbiturates Screen (NEGATIVE) Ur Tricyclics Screen (NEGATIVE) Ur Phencyclidine Scrn (NEGATIVE) Ur Amphetamine Screen (NEGATIVE) U Methamphetamines Scrn (NEGATIVE) Urine MDMA Screen (NEGATIVE) U Benzodiazepines Scrn (NEGATIVE) U Cocaine Metab Screen (NEGATIVE) U Marijuana (THC) Screen (NEGATIVE) 04/18/17 04/18/17 04/18/17 Range/Units 21:09 21:09 21:46 WBC (4.5-11.0) K/uL RBC (4.30-5.90) M/uL Hgb (12.0-15.0) g/dL Hct (40.0-54.0) % MCV (80-98) fL MCH (27-31) pg MCHC (32-36) % Plt Count (150-400) K/uL Neut % (Auto) (36-66) % Lymph % (Auto) (24-44) % [place] % (Auto) (2-6) % Eos % (Auto) (2-4) % Baso % (Auto) (0-1) % PT (9.5-12.0) sec INR (0.80-1.20) Sodium (140-148) mmol/L Potassium (3.6-5.2) mmol/L Chloride (100-108) mmol/L Carbon Dioxide (21-32) mmol/L Anion Gap (5.0-14.0) mmol/L BUN (7-18) mg/dL Creatinine (0.8-1.3) mg/dL Est Cr Clr Drug Dosing mL/min Estimated GFR (MDRD) (>60) Glucose (74-106) mg/dL Lactic Acid 1.7 (0.4-2.0) mmol/L Calcium (8.5-10.1) mg/dL Total Bilirubin (0.2-1.0) mg/dL AST (15-37) U/L ALT (12-78) U/L Alkaline Phosphatase (46-116) U/L Ammonia 71 H (11-32) mmol/L Total Protein (6.4-8.2) g/dL Albumin (3.4-5.0) g/dL Globulin (2.3-3.5) g/dL Albumin/Globulin Ratio (1.2-2.2) Lipase (73-393) U/L Urine Color [place] Urine Appearance Clear Urine pH 5.0 (4.5-8.0) Ur Specific [place] 1.015 (1.008-1.030) Urine Protein Negative (NEGATIVE) mg/dL Urine Glucose (UA) Normal (NEGATIVE) mg/dL Urine Ketones Negative (NEGATIVE) mg/dL Urine Occult Blood Negative (NEGATIVE) Urine Nitrite Negative (NEGAITVE) Urine Bilirubin Negative (NEGATIVE) Urine Urobilinogen 1 (NORMAL) mg/dL Ur Leukocyte Esterase Negative (NEGATIVE) Urine RBC 0-5 (0-5) Urine WBC 0-5 (0-5) Ur Epithelial Cells Moderate Amorphous Sediment Few Urine Bacteria Few Urine Mucus Moderate Urine Opiates Screen (NEGATIVE) Ur Oxycodone Screen (NEGATIVE) Urine Methadone Screen (NEGATIVE) Ur Propoxyphene Screen (NEGATIVE) Ur Barbiturates Screen (NEGATIVE) Ur Tricyclics Screen (NEGATIVE) Ur Phencyclidine Scrn (NEGATIVE) Ur Amphetamine Screen (NEGATIVE) U Methamphetamines Scrn (NEGATIVE) Urine MDMA Screen (NEGATIVE) U Benzodiazepines Scrn (NEGATIVE) U Cocaine Metab Screen (NEGATIVE) U Marijuana (THC) Screen (NEGATIVE) 04/18/17 Range/Units 21:46 WBC (4.5-11.0) K/uL RBC (4.30-5.90) M/uL Hgb (12.0-15.0) g/dL Hct (40.0-54.0) % MCV (80-98) fL MCH (27-31) pg MCHC (32-36) % Plt Count (150-400) K/uL Neut % (Auto) (36-66) % Lymph % (Auto) (24-44) % [place] % (Auto) (2-6) % Eos % (Auto) (2-4) % Baso % (Auto) (0-1) % PT (9.5-12.0) sec INR (0.80-1.20) Sodium (140-148) mmol/L Potassium (3.6-5.2) mmol/L Chloride (100-108) mmol/L Carbon Dioxide (21-32) mmol/L Anion Gap (5.0-14.0) mmol/L BUN (7-18) mg/dL Creatinine (0.8-1.3) mg/dL Est Cr Clr Drug Dosing mL/min Estimated GFR (MDRD) (>60) Glucose (74-106) mg/dL Lactic Acid (0.4-2.0) mmol/L Calcium (8.5-10.1) mg/dL Total Bilirubin (0.2-1.0) mg/dL AST (15-37) U/L ALT (12-78) U/L Alkaline Phosphatase (46-116) U/L Ammonia (11-32) mmol/L Total Protein (6.4-8.2) g/dL Albumin (3.4-5.0) g/dL Globulin (2.3-3.5) g/dL Albumin/Globulin Ratio (1.2-2.2) Lipase (73-393) U/L Urine Color Urine Appearance Urine pH (4.5-8.0) Ur Specific [place] (1.008-1.030) Urine Protein (NEGATIVE) mg/dL Urine Glucose (UA) (NEGATIVE) mg/dL Urine Ketones (NEGATIVE) mg/dL Urine Occult Blood (NEGATIVE) Urine Nitrite (NEGAITVE) Urine Bilirubin (NEGATIVE) Urine Urobilinogen (NORMAL) mg/dL Ur Leukocyte Esterase (NEGATIVE) Urine RBC (0-5) Urine WBC (0-5) Ur Epithelial Cells Amorphous Sediment Urine Bacteria Urine Mucus Urine Opiates Screen Negative (NEGATIVE) Ur Oxycodone Screen Negative (NEGATIVE) Urine Methadone Screen Negative (NEGATIVE) Ur Propoxyphene Screen Negative (NEGATIVE) Ur Barbiturates Screen Negative (NEGATIVE) Ur Tricyclics Screen Negative (NEGATIVE) Ur Phencyclidine Scrn Negative (NEGATIVE) Ur Amphetamine Screen Negative (NEGATIVE) U Methamphetamines Scrn Negative (NEGATIVE) Urine MDMA Screen Negative (NEGATIVE) U Benzodiazepines Scrn Negative (NEGATIVE) U Cocaine Metab Screen Negative (NEGATIVE) U Marijuana (THC) Screen Negative (NEGATIVE) Meds: Medications Generic Name Dose Route Start Last Admin Trade Name Freq PRN Reason Stop Dose Admin Lactated Ringer's 1,000 mls @ 125 mls/hr 04/18/17 21:00 04/18/17 21:20 Ringers, Lactated IV 125 mls/hr ASDIRECTED JAI Administration Sodium Chloride 10 ml 04/18/17 20:55 04/18/17 21:20 Saline Flush FLUSH 10 ml ASDIRECTED PRN Administration Keep Vein Open Discontinued Medications Generic Name Dose Route Start Last Admin Trade Name Freq PRN Reason Stop Dose Admin Lactulose 40 gm 04/18/17 21:47 04/18/17 22:03 Chronulac PO 04/18/17 21:48 40 gm ONETIME ONE Administration Departure - Departure Time of Disposition: 22:31 Disposition: Admitted As Inpatient 67 Condition: Fair Clinical Impression: Hepatic encephalopathy - Discharge Information Referrals: Herb Browning MD [Primary Care Provider] - Forms: ED Department Discharge - My Orders Last 24 Hours: My Active Orders 04/18/17 20:55 Sodium Chloride 0.9% [Saline Flush] 10 ml FLUSH ASDIRECTED PRN Peripheral IV Insertion Adult [OM.PC] Urgent 04/18/17 20:58 Peripheral IV Care [RC] . DIRECTED 04/18/17 21:00 Lactated Ringers [Ringers, Lactated] 1,000 ml IV ASDIRECTED - Assessment/Plan Last 24 Hours: My Active Orders 04/18/17 20:55 Sodium Chloride 0.9% [Saline Flush] 10 ml FLUSH ASDIRECTED PRN Peripheral IV Insertion Adult [OM.PC] Urgent 04/18/17 20:58 Peripheral IV Care [RC] . DIRECTED 04/18/17 21:00 Lactated Ringers [Ringers, Lactated] 1,000 ml IV ASDIRECTED 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 Manifestations = confusion, generalized weakness Location of injury = Home Lab values = platelets low at 94 consistent with thrombocytopenia INR elevated at 1.6 consistent with increasing liver dysfunction total bilirubin elevated 3.0 consistent hyperbilirubinemia AST elevated at 52 consistent elevated liver enzymes ammonia elevated at 71 protein elevated at 6.1 consistent proteinemia albumin low at 2.5 consistent hypoalbuminemia urinalysis and toxicology screen negative Plan Discussed case with hospitalist on-call they agreed to come and evaluate the patient ED for admission, was given 40 g of lactulose in the ED This note was dictated using [employer] voice recognition software please call with any questions.
[2017-04-18] MEDS: Lactated Ringers 1,000 ML IV SCH (21:20)
[2017-04-18] MEDS ORDERED: Lactulose Soln 10 GM/15 ML 15 ML UD Cup PO ONE (21:47)
[2017-04-19] MEDS ORDERED: Acetaminophen 325 MG Tab PO PRN (01:11)
[2017-04-19] MEDS ORDERED: LORazepam 2 MG/ML MDV IV PRN (01:11)
[2017-04-19] MEDS ORDERED: Docusate Sodium 100 MG Cap PO PRN (01:11)
[2017-04-19] MEDS ORDERED: Zolpidem 5 MG Tab PO PRN (01:11)
[2017-04-19] MEDS ORDERED: oxyCODONE 5 MG Tab PO PRN (01:11)
[2017-04-19] MEDS ORDERED: Ondansetron 4 MG Tab.DIS PO PRN (01:11)
[2017-04-19] MEDS ORDERED: Morphine 2 MG/ML Syringe IVPUSH PRN (01:11)
[2017-04-19] MEDS ORDERED: Albuterol 0.083% 2.5 MG/3 ML Neb Soln NEB PRN (01:11)
[2017-04-19] MEDS ORDERED: Bisacodyl 5 MG Tab PO PRN (01:11)
--- NOTE | 2017-04-19 01:25 | PCM.HP ---
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 He denies any fevers nausea vomiting shortness of breath or chest pain does describe some vague abdominal pain that is been going on for about one month predominately in the right upper quadrant. 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 Manifestations = confusion, generalized weakness Lab values = platelets low at 94 consistent with thrombocytopenia INR elevated at 1.6 consistent with increasing liver dysfunction total bilirubin elevated 3.0 consistent hyperbilirubinemia AST elevated at 52 consistent elevated liver enzymes ammonia elevated at 71 protein elevated at 6.1 consistent proteinemia albumin low at 2.5 consistent hypoalbuminemia urinalysis and toxicology screen negative Plan Discussed case with hospitalist on-call they agreed to come and evaluate the patient ED for admission, was given 40 g of lactulose in the ED Onset of Symptoms: Reports: Gradual Duration of Symptoms: Reports: Day(s): Location: Reports: Generalized Quality: Reports: Same as Previous Episode Improves with: Reports: None Worsens with: Reports: None Associated Symptoms: Reports: Confusion, Weakness, Other (right upper abdominal tenderness) - Related Data Allergies/Adverse Reactions: Allergies Allergy/AdvReac Type Severity Reaction Status Date / Time azithromycin AdvReac Severe Jaundice Verified 04/18/17 21:32 Home Medications: Home Meds Omeprazole Magnesium [Prilosec Otc] 20 mg PO DAILY 05/23/14 [History] Triamcinolone Acetonide [Triamcinolone Acetonide 0.1% Crm] 1 cm TOP BID [History] Spironolactone [Aldactone] 100 mg PO DAILY 09/01/15 [History] Albuterol Sulfate [Proair Hfa] 1 - 2 puff IH Q4H PRN 03/24/17 [History] Ascorbic Acid 500 mg PO DAILY 03/24/17 [History] Escitalopram [Lexapro] 10 mg PO DAILY 03/24/17 [History] Furosemide 40 mg PO DAILY 03/24/17 [History] Multivit-Min/FA/Lycopene/Lut [Centrum Silver Tablet] 1 each PO DAILY 03/24/17 [ History] Propranolol [Inderal] 10 mg PO BID 03/24/17 [History] Cefdinir [IJD: Cefdinir] 300 mg PO BID #5 capsule 03/27/17 [Rx] Past Medical History HEENT History: Reports: Cataract Cardiovascular History: Reports: Hypertension Respiratory History: Reports: Bronchitis, Recurrent, Pneumonia, Recurrent Gastrointestinal History: Reports: Cirrhosis (Cryptogenic), GI Bleed, PUD Other Gastrointestinal History: fatty liver Genitourinary History: Reports: Urinary Incontinence Musculoskeletal History: Reports: Arthritis Neurological History: Reports: CVA Psychiatric History: Reports: None Endocrine/Metabolic History: Reports: None Hematologic History: Reports: None Immunologic History: Reports: None Oncologic (Cancer) History: Reports: None Dermatologic History: Reports: Other (See Below) Other Dermatologic History: rash back of neck - Infectious Disease History Infectious Disease History: Reports: Measles, Mumps - Past Surgical History HEENT Surgical History: Reports: Cataract Surgery Cardiovascular Surgical History: Reports: None GI Surgical History: Reports: Cholecystectomy, Colonoscopy, Hernia, Abdominal, Other (See Below) Endocrine Surgical History: Reports: None Oncologic Surgical History: Reports: None Social & Family History - Family History Cardiac: Reports: Blood Clots/VTE/DVT Dermatologic: Reports: Eczema - Tobacco Use Smoking Status *Q: Never Smoker Used Tobacco, but Quit: Yes Month Tobacco Last Used: Aug 1977 Second Hand Smoke Exposure: No - Caffeine Use Caffeine Use: Reports: Coffee Other Caffeine Use: very little Caffeine Use Comment: rarely - Alcohol Use Days Per Week of Alcohol Use: 0 - Recreational Drug Use Recreational Drug Use: No - Living Situation & Occupation Living situation: Reports: Occupation: Retired (lives with Ron of 52 years in [facility] [place], [place]. has 6 children and 16 grandchildren.) H&P Review of Systems - Review of Systems: Review Of Systems: See Below General: Reports: Weakness, Other (Family reports confusion) HEENT: Reports: No Symptoms Pulmonary: Reports: Cough, Other (reports chest congestion for the past few days.) Cardiovascular: Reports: Edema Gastrointestinal: Reports: Abdominal Pain Genitourinary: Reports: No Symptoms Musculoskeletal: Reports: No Symptoms Skin: Reports: Bruising Psychiatric: Reports: Confusion Neurological: Reports: Confusion, Weakness Hematologic/Lymphatic: Reports: Easy Bleeding, Easy Bruising Immunologic: Reports: No Symptoms Exam - Exam Exam: See Below - Vital Signs Vital Signs: Last Vital Signs Temp 36.6 C 04/19/17 01:11 Pulse 55 L 04/19/17 01:11 Resp 20 04/19/17 01:11 BP 140/63 04/19/17 01:11 Pulse Ox 97 04/19/17 01:11 Weight: 122.47 kg - Exam General: Alert, Oriented, Cooperative HEENT: PERRLA, Conjunctiva Clear (tearing noted. no jaundice), EACs Clear, EOMI , Hearing Intact, Mucosa Moist & [place], Nares Patent, Normal Nasal Septum, Posterior Pharynx Clear, Pupils Equal, Pupils Reactive, TMs Clear, Other (multi teeth with cavities to gums, multi missing teeth.) Neck: Supple, Trachea Midline Lungs: Clear to Auscultation, Normal Respiratory Effort Cardiovascular: Normal S1, Normal S2, Irregular Rhythm GI/Abdominal Exam: Normal Bowel Sounds, Tender (right mid to upper quadrants.) (Male) Exam: Deferred Rectal (Males) Exam: Deferred Back Exam: Normal Inspection, Full Range of Motion Extremities: Normal Inspection, Non-Tender, Normal Capillary Refill, Pedal Edema Peripheral Pulses: 2+: Radial (L), Radial (R) Skin: Warm, Dry, [place], Ecchymosis Neurological: Reflexes Equal Bilateral, Strength Equal Bilateral Neuro Extensive - Mental Status: Alert, Oriented x3, Normal Mood/Affect, Normal Cognition, Memory Intact Neuro Extensive - Motor, Sensory, Reflexes: CN II-XII Intact, Normal Reflexes Psychiatric: Alert, Normal Affect, Normal Mood - Patient Data Result Diagrams: 04/18/17 21:09 04/18/17 21:09 *Q Meaningful Use (ADM) - VTE *Q VTE Criteria *Q: - Stroke *Q Stroke Criteria *Q: - AMI *Q AMI Criteria *Q: - Problem List (1) Hepatic encephalopathy SNOMED Code(s): 59859602 ICD Code: K72.90 - HEPATIC FAILURE, UNSPECIFIED WITHOUT COMA Status: Acute Priority: High Current Visit: Yes (2) Increased ammonia level SNOMED Code(s): 203833122, 345975900, 074357122 ICD Code: R79.89 - OTHER SPECIFIED ABNORMAL FINDINGS OF BLOOD CHEMISTRY Status: Acute Priority: High Current Visit: Yes Problem List Initiated/Reviewed/Updated: Yes Orders Last 24hrs: Active Orders 24 hr Category Date Time Status Patient Status [ADT] Routine ADT 04/19/17 01:11 Active Intake and Output [RC] QSHIFT Care 04/19/17 01:11 Active Oxygen Therapy [RC] PRN Care 04/19/17 01:11 Active RT Aerosol Therapy [RC] ASDIRECTED Care 04/19/17 01:11 Active Up With Assistance [RC] ASDIRECTED Care 04/19/17 01:11 Active VTE/DVT Education [RC] Per Unit Routine Care 04/19/17 01:11 Active Vital Signs [RC] Q4H Care 04/19/17 01:11 Active OT Evaluation and Treatment [CONS] Routine Cons 04/19/17 01:11 Active PT Evaluation and Treatment [CONS] Routine Cons 04/19/17 01:11 Active Regular Diet [DIET] Diet 04/19/17 Breakfast Active AMMONIA VENOUS [CHEM] Stat Lab 04/19/17 05:10 Ordered CBC WITH AUTO DIFF [HEME] Routine Lab 04/19/17 05:10 Ordered COMPREHENSIVE METABOLIC PN,CMP [CHEM] Routine Lab 04/19/17 05:10 Ordered INR,PT,PROTHROMBIN TIME [COAG] AM Lab 04/19/17 05:11 Ordered Acetaminophen [Tylenol] Med 04/19/17 01:11 Active 650 mg PO Q4H PRN Albuterol [Proventil Neb Soln] Med 04/19/17 01:11 Active 2.5 mg NEB Q4H PRN Bisacodyl [Dulcolax] Med 04/19/17 01:11 Active 5 mg PO DAILY PRN Cefdinir [Omnicef] Med 04/19/17 01:30 Active 300 mg PO BID Docusate Sodium [Colace] Med 04/19/17 01:11 Active 100 mg PO BID PRN Escitalopram [Lexapro] Med 04/19/17 09:00 Active 10 mg PO DAILY Furosemide [Lasix] Med 04/19/17 09:00 Active 40 mg PO DAILY LORazepam [Ativan] Med 04/19/17 01:11 Active 1 mg IV Q6H PRN Lactulose [Chronulac] Med 04/19/17 09:00 Active 10 gm PO BID Morphine Med 04/19/17 01:11 Active 2 mg IVPUSH Q2H PRN Ondansetron [Zofran ODT] Med 04/19/17 01:11 Active 4 mg PO Q6H PRN Pantoprazole [ProTONIX IV] Med 04/19/17 09:00 Active 40 mg IVPUSH DAILY Propranolol [Inderal] Med 04/19/17 09:00 Active 10 mg PO BID Spironolactone [Aldactone] Med 04/19/17 09:00 Active 100 mg PO DAILY Triamcinolone Acetonide [Triamcinolone Acetonide 0.1% Med 04/19/17 09:00 Active Crm] 0 gm TOP BID Zolpidem [Ambien] Med 04/19/17 01:11 Active 5 mg PO BEDTIME PRN oxyCODONE Med 04/19/17 01:11 Active 5 mg PO Q4H PRN Sequential Compression Device [OM.PC] Per Unit Routine Oth 04/19/17 01:11 Ordered Resuscitation Status Routine Resus Stat 04/19/17 00:42 Ordered Medication Orders Acetaminophen (Tylenol) 650 mg PO Q4H PRN PRN Reason: Pain (Mild 1-3)/fever Albuterol (Proventil Neb Soln) 2.5 mg NEB Q4H PRN PRN Reason: Shortness Of Breath/wheezing Bisacodyl (Dulcolax) 5 mg PO DAILY PRN PRN Reason: Constipation Cefdinir (Omnicef) 300 mg PO BID [facility] Docusate Sodium (Colace) 100 mg PO BID PRN PRN Reason: Constipation Escitalopram Oxalate (Lexapro) 10 mg PO DAILY [facility] Furosemide (Lasix) 40 mg PO DAILY [facility] Lactated Ringer's (Ringers, Lactated) 1,000 mls @ 125 mls/hr IV ASDIRECTED JAI Last Admin: 04/18/17 21:20 Dose: 125 mls/hr Lactulose (Chronulac) 10 gm PO BID [facility] Lorazepam (Ativan) 1 mg IV Q6H PRN PRN Reason: Nausea/Vomiting Morphine Sulfate (Morphine) 2 mg IVPUSH Q2H PRN PRN Reason: Pain (severe 7-10) Ondansetron HCl (Zofran Odt) 4 mg PO Q6H PRN PRN Reason: Nausea able to take PO Oxycodone HCl (Oxycodone) 5 mg PO Q4H PRN PRN Reason: Pain (moderate 4-6) Pantoprazole Sodium (Protonix Iv) 40 mg IVPUSH DAILY [facility] Propranolol HCl (Inderal) 10 mg PO BID [facility] Sodium Chloride (Saline Flush) 10 ml FLUSH ASDIRECTED PRN PRN Reason: Keep Vein Open Last Admin: 04/18/17 21:20 Dose: 10 ml Spironolactone (Aldactone) 100 mg PO DAILY [facility] Triamcinolone Acetonide (Triamcinolone Acetonide 0.1% Crm) 0 gm TOP BID [facility] Zolpidem Tartrate (Ambien) 5 mg PO BEDTIME PRN PRN Reason: Sleep Assessment/Plan Comment:: Assessment / Plan - History of Present Illness 77-year-old male presents emergency department today with increasing confusion and generalized weakness, he was recently admitted the hospital first part of the month with exacerbation of 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 He denies any fevers nausea vomiting shortness of breath or chest pain does describe some vague abdominal pain that is been going on for about one month predominately in the right upper quadrant. 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 Hepatic encephalopathy with elevated ammonia levels -Ammonia level 71, given lactulose 40 g a ER -Lactulose 10 g by mouth twice a day -IV fluids, lactated Ringer's at 125 mL per hour -repeat ammonia level in a.m., CBC, BMP, INR/PT Maintenance issues -DVT prophylaxis- mechanical with thrombocytopenia -GI prophylaxis- Protonix 40 mg daily -Nutrition; regular diet -Servin catheter- not indicated -Consults to physical therapy/occupational therapy CODE STATUS- full code Admission justification: This patient will be admitted for inpatient services and is medically appropriate me medical necessity for inpatient admission as outlined in my documentation. I recently expect the patient will require inpatient services that span a period time over to midnight. I recently expect this patient to be discharged or transferred within 96 hours after admission to the [facility]. Disposition: Anticipate discharge to home with family Primary care physician: Dr. Browning Hospitalist: Dr. Perez
[2017-04-19] MEDS: Cefdinir 300 MG Cap PO SCH ×2 (02:10→08:48)
[2017-04-19] MEDS ORDERED: Dimethicone 20%/Zinc Oxide 25% 56 GM Spray Bottle TOP PRN (02:21)
[2017-04-19] MEDS: Lactated Ringers 1,000 ML IV SCH (05:14)
[2017-04-19] MEDS: Furosemide 40 MG Tab PO SCH ×2 (08:48→09:33)
[2017-04-19] MEDS ORDERED: Triamcinolone Acetonide 0.1% Crm 15 GM Tube TOP SCH (09:00)
[2017-04-19] MEDS ORDERED: Escitalopram 10 MG Tab PO SCH (09:00)
[2017-04-19] MEDS ORDERED: Propranolol 10 MG Tab PO SCH (09:00)
[2017-04-19] MEDS ORDERED: Pantoprazole 40 MG Vial IVPUSH SCH (09:00)
[2017-04-19] MEDS ORDERED: Lactulose Soln 10 GM/15 ML 15 ML UD Cup PO SCH (09:00)
[2017-04-19] MEDS ORDERED: Spironolactone 25 MG Tab PO SCH (09:00)
--- NOTE | 2017-04-19 12:07 | PCM.DCSUM1 ---
Discharge Summary - Hospital Course Brief History: This patient is a 77-year-old gentleman who was admitted through the emergency department with weakness and lethargy secondary to hepatic encephalopathy. - Discharge Data Discharge Date: 04/19/17 Discharge Disposition: Home, Self-Care 01 Condition: Fair - Discharge Diagnosis/Problem(s) (1) Increased ammonia level SNOMED Code(s): 446605360, [id number], 501240862 ICD Code: R79.89 - OTHER SPECIFIED ABNORMAL FINDINGS OF BLOOD CHEMISTRY Status: Acute Priority: High Current Visit: Yes (2) Cirrhosis of liver SNOMED Code(s): 15639852 ICD Code: K74.60 - UNSPECIFIED CIRRHOSIS OF LIVER Status: Chronic Current Visit: No Qualifiers: Hepatic cirrhosis type: other cirrhosis Qualified Code(s): K74.69 - Other cirrhosis of liver (3) Hepatic encephalopathy SNOMED Code(s): 07232601 ICD Code: K72.90 - HEPATIC FAILURE, UNSPECIFIED WITHOUT COMA Status: Acute Priority: High Current Visit: Yes - Patient Summary/Data Consults: Consultations 04/19/17 01:11 OT Evaluation and Treatment [CONS] Routine Please Evaluate and Treat. OT Reason for Consult: Discharge Planning This query below is only for informational purposes and is not editable. PT Evaluation and Treatment [CONS] Routine Please Evaluate and Treat. PT Reason for Consult: Strengthening This query below is only for informational purposes and is not editable. Hospital Course: This patient has a known history of hepatic cirrhosis, prior to admission he noted symptoms of progressive weakness and lethargy for approximately one week but significantly worse over the past few days. Symptoms progressed to the point where he was having marked difficulty with ambulation and sleeping much of the time. He was brought into the emergency department for further evaluation , ammonia level was elevated at 70 and he was felt to have probable hepatic encephalopathy causing his current symptoms. There was no evidence of underlying infection noted on evaluation in the emergency department. He was given lactulose 40 g and admitted to the hospital with IV fluids for hydration. By the following morning his ammonia level had normalized and he was alert and interactive, ambulating with use of a walker. Initially he was admitted to inpatient status but has improved more rapidly than expected and thus will be discharged after only one night of hospitalization. Activity will be as tolerated and he will continue a 2 g sodium diet. Follow-up appointment will be scheduled with his primary care provider within one week. Home care will be arranged with home physical therapy and occupational therapy to regain some strength and he will be discharged on lactulose 10 g twice daily. - Patient Instructions Diet: Low Sodium, No Alcoholic Beverages Activity: As Tolerated Other/Special Instructions: Please schedule follow-up appointment with Dr. Browning within one week. Please arrange for home care with home physical therapy and occupational therapy after discharge. - Discharge Plan Prescriptions/Med Rec: Lactulose [Chronulac] 10 gm PO BID #500 ml Home Medications: Home Meds Omeprazole Magnesium [Prilosec Otc] 20 mg PO DAILY 05/23/14 [History] Triamcinolone Acetonide [Triamcinolone Acetonide 0.1% Crm] 1 cm TOP BID [History] Spironolactone [Aldactone] 100 mg PO DAILY 09/01/15 [History] Albuterol Sulfate [Proair Hfa] 1 - 2 puff IH Q4HR PRN 03/24/17 [History] Ascorbic Acid 500 mg PO DAILY 03/24/17 [History] Escitalopram [Lexapro] 10 mg PO DAILY 03/24/17 [History] Furosemide 40 mg PO DAILY 03/24/17 [History] Multivit-Min/FA/Lycopene/Lut [Centrum Silver Tablet] 1 each PO DAILY 03/24/17 [ History] Propranolol [Inderal] 10 mg PO BID 03/24/17 [History] Lactulose [Chronulac] 10 gm PO BID #500 ml 04/19/17 [Rx] Referrals: Herb Browning MD [Primary Care Provider] - - Patient Data Vitals - Most Recent: Last Vital Signs Temp 96.5 F 04/19/17 08:14 Pulse 55 L 04/19/17 09:33 Resp 18 04/19/17 08:14 BP 132/70 04/19/17 09:33 Pulse Ox 95 04/19/17 08:14 Weight - Most Recent: 270 lb I&O - Last 24 hours: Intake & Output 04/18/17 04/19/17 04/19/17 22:59 06:59 14:59 Intake Total 697 420 Balance 697 420 Lab Results - Last 24 hrs: Laboratory Results - last 24 hr 04/19/17 04/19/17 04/19/17 Range/Units 05:57 05:57 05:57 WBC 4.2 L (4.5-11.0) K/uL RBC 3.82 L (4.30-5.90) M/uL Hgb 14.1 (12.0-15.0) g/dL Hct 41.8 (40.0-54.0) % MCV 109 H (80-98) fL MCH 37 H (27-31) pg MCHC 34 (32-36) % Plt Count 82 L (150-400) K/uL Neut % (Auto) 47 (36-66) % Lymph % (Auto) 35 (24-44) % [place] % (Auto) 12 H (2-6) % Eos % (Auto) 6 H (2-4) % Baso % (Auto) 1 (0-1) % PT (9.5-12.0) sec INR (0.80-1.20) Sodium 142 (140-148) mmol/L Potassium 4.0 (3.6-5.2) mmol/L Chloride 109 H (100-108) mmol/L Carbon Dioxide 28 (21-32) mmol/L Anion Gap 9.0 (5.0-14.0) mmol/L BUN 20 H (7-18) mg/dL Creatinine 1.1 (0.8-1.3) mg/dL Est Cr Clr Drug Dosing 55.27 mL/min Estimated GFR (MDRD) > 60 (>60) Glucose 81 (74-106) mg/dL Calcium 7.9 L (8.5-10.1) mg/dL Total Bilirubin 4.0 H (0.2-1.0) mg/dL AST 44 H (15-37) U/L ALT 40 (12-78) U/L Alkaline Phosphatase 79 (46-116) U/L Ammonia 32 (11-32) mmol/L Total Protein 5.7 L (6.4-8.2) g/dL Albumin 2.3 L (3.4-5.0) g/dL Globulin 3.4 (2.3-3.5) g/dL Albumin/Globulin Ratio 0.7 L (1.2-2.2) 04/19/17 Range/Units 05:57 WBC (4.5-11.0) K/uL RBC (4.30-5.90) M/uL Hgb (12.0-15.0) g/dL Hct (40.0-54.0) % MCV (80-98) fL MCH (27-31) pg MCHC (32-36) % Plt Count (150-400) K/uL Neut % (Auto) (36-66) % Lymph % (Auto) (24-44) % [place] % (Auto) (2-6) % Eos % (Auto) (2-4) % Baso % (Auto) (0-1) % PT 14.7 H (9.5-12.0) sec INR 1.36 H (0.80-1.20) Sodium (140-148) mmol/L Potassium (3.6-5.2) mmol/L Chloride (100-108) mmol/L Carbon Dioxide (21-32) mmol/L Anion Gap (5.0-14.0) mmol/L BUN (7-18) mg/dL Creatinine (0.8-1.3) mg/dL Est Cr Clr Drug Dosing mL/min Estimated GFR (MDRD) (>60) Glucose (74-106) mg/dL Calcium (8.5-10.1) mg/dL Total Bilirubin (0.2-1.0) mg/dL AST (15-37) U/L ALT (12-78) U/L Alkaline Phosphatase (46-116) U/L Ammonia (11-32) mmol/L Total Protein (6.4-8.2) g/dL Albumin (3.4-5.0) g/dL Globulin (2.3-3.5) g/dL Albumin/Globulin Ratio (1.2-2.2) Med Orders - Current: Current Medications Acetaminophen (Tylenol) 650 mg PO Q4H PRN PRN Reason: Pain (Mild 1-3)/fever Albuterol (Proventil Neb Soln) 2.5 mg NEB Q4H PRN PRN Reason: Shortness Of Breath/wheezing Bisacodyl (Dulcolax) 5 mg PO DAILY PRN PRN Reason: Constipation Cefdinir (Omnicef) 300 mg PO BID [facility] Last Admin: 04/19/17 08:48 Dose: 300 mg Dimethicone/Zinc Oxide (Rash Relief-Zinc Oxide [place]) 1 gm TOP ASDIRECTED PRN PRN Reason: Rash Last Admin: 04/19/17 05:16 Dose: 1 applic Docusate Sodium (Colace) 100 mg PO BID PRN PRN Reason: Constipation Escitalopram Oxalate (Lexapro) 10 mg PO DAILY [facility] Last Admin: 04/19/17 08:48 Dose: 10 mg Furosemide (Lasix) 40 mg PO DAILY [facility] Last Admin: 04/19/17 09:33 Dose: 40 mg Lactated Ringer's (Ringers, Lactated) 1,000 mls @ 125 mls/hr IV ASDIRECTED [facility] Last Admin: 04/19/17 05:14 Dose: 125 mls/hr Lactulose (Chronulac) 10 gm PO BID [facility] Last Admin: 04/19/17 08:48 Dose: 10 gm Lorazepam (Ativan) 1 mg IV Q6H PRN PRN Reason: Nausea/Vomiting Morphine Sulfate (Morphine) 2 mg IVPUSH Q2H PRN PRN Reason: Pain (severe 7-10) Ondansetron HCl (Zofran Odt) 4 mg PO Q6H PRN PRN Reason: Nausea able to take PO Oxycodone HCl (Oxycodone) 5 mg PO Q4H PRN PRN Reason: Pain (moderate 4-6) Pantoprazole Sodium (Protonix Iv) 40 mg IVPUSH DAILY [facility] Last Admin: 04/19/17 08:48 Dose: 40 mg Propranolol HCl (Inderal) 10 mg PO BID [facility] Last Admin: 04/19/17 09:33 Dose: 10 mg Sodium Chloride (Saline Flush) 10 ml FLUSH ASDIRECTED PRN PRN Reason: Keep Vein Open Last Admin: 04/18/17 21:20 Dose: 10 ml Spironolactone (Aldactone) 100 mg PO DAILY [facility] Last Admin: 04/19/17 09:33 Dose: 100 mg Triamcinolone Acetonide (Triamcinolone Acetonide 0.1% Crm) 0 gm TOP BID [facility] Last Admin: 04/19/17 08:55 Dose: 1 applic Zolpidem Tartrate (Ambien) 5 mg PO BEDTIME PRN PRN Reason: Sleep Last Admin: 04/19/17 02:11 Dose: 5 mg Discontinued Medications Lactulose (Chronulac) 40 gm PO ONETIME ONE Stop: 04/18/17 21:48 Last Admin: 04/18/17 22:03 Dose: 40 gm *Q Meaningful Use (DIS) - VTE *Q VTE Criteria *Q: - Stroke *Q Stroke Criteria *Q: - AMI *Q AMI Criteria *Q:
[2017-04-19 12:11] VITALS: BP 119/53
== END 2017-04-19 13:06 | disposition home or self-care (01) | DRG 443 ==
LOC: JP.ED 20:02 → JP.MS 04-19 00:40
PROVIDERS: ADMIT Hospitalist; ATTEND Hospitalist
DX: K72.90 Hepatic failure, unspecified without coma (principal); K74.69 Other cirrhosis of liver; I10 Essential (primary) hypertension; R79.89 Other specified abnormal findings of blood chemistry; R53.1 Weakness; R41.0 Disorientation, unspecified; Z87.891 Personal history of nicotine dependence; Z87.01 Personal history of pneumonia (recurrent); M19.90 Unspecified osteoarthritis, unspecified site; Z86.73 Personal history of transient ischemic attack (TIA), and cerebral infarction without residual deficits; Z88.1 Allergy status to other antibiotic agents
CPT/HCPCS: 36415; 80053; 80305; 81001; 82140; 83605; 83690; 85025; 85610; 96360; 96361; 99285; A9270; C1751; J7050; J7120; C9113

== ENCOUNTER 2017-06-07 19:44 | Emergency (ER) | payer MEDICARE, BC ==
[2017-06-07 20:25] VITALS: BP 117/55
--- NOTE | 2017-06-07 20:39 | EDM.PDOC ---
ED HPI GENERAL MEDICAL PROBLEM - General Chief Complaint: General Stated Complaint: ILLNESS CONFUSION Time Seen by Provider: 06/07/17 20:32 Source of Information: Reports: Patient, Family History Limitations: Reports: No Limitations - History of Present Illness INITIAL COMMENTS - FREE TEXT/NARRATIVE: 77-year-old male with advanced cirrhosis who develops intermittent high ammonia levels is brought in by his family because over the last several days he's had some confusion, intermittent hallucinations and they're concerned about his ammonia level. He is not fatigued however and does not seem to be confused or having symptoms at the time he presented to the emergency room. He also started on a new medication 2 weeks ago and they're wondering if that may have an effect. He denies any fevers or chills, denies shortness of breath, has no nausea or vomiting and generally feels okay. It is his mental status he and his family is concerned about. Onset: Gradual (Over the past 1-2 weeks) Severity: Mild Associated Symptoms: Reports: Confusion, Other (Visual hallucinations) - Related Data Allergies Allergy/AdvReac Type Severity Reaction Status Date / Time azithromycin AdvReac Severe Jaundice Verified 04/18/17 21:32 Home Meds: Home Meds Triamcinolone Acetonide [Triamcinolone Acetonide 0.1% Crm] 1 cm TOP BID [History] Spironolactone [Aldactone] 100 mg PO DAILY 09/01/15 [History] Albuterol Sulfate [Proair Hfa] 1 - 2 puff IH Q4HR PRN 03/24/17 [History] Ascorbic Acid 500 mg PO DAILY 03/24/17 [History] Escitalopram [Lexapro] 10 mg PO DAILY 03/24/17 [History] Furosemide 40 mg PO DAILY 03/24/17 [History] Multivit-Min/FA/Lycopene/Lut [Centrum Silver Tablet] 1 each PO DAILY 03/24/17 [ History] Propranolol [Inderal] 10 mg PO BID 03/24/17 [History] Lactulose [Chronulac] 10 gm PO BID #500 ml 04/19/17 [Rx] Rifaximin [Xifaxan] 1 tab PO BID 06/07/17 [History] Past Medical History HEENT History: Reports: Cataract Cardiovascular History: Reports: Hypertension Respiratory History: Reports: Bronchitis, Recurrent, Pneumonia, Recurrent Gastrointestinal History: Reports: Cirrhosis, GI Bleed, PUD Other Gastrointestinal History: fatty liver Genitourinary History: Reports: Urinary Incontinence Musculoskeletal History: Reports: Arthritis Neurological History: Reports: CVA Psychiatric History: Reports: None Endocrine/Metabolic History: Reports: None Hematologic History: Reports: None Immunologic History: Reports: None Oncologic (Cancer) History: Reports: None Dermatologic History: Reports: Other (See Below) Other Dermatologic History: rash back of neck - Infectious Disease History Infectious Disease History: Reports: Measles, Mumps - Past Surgical History HEENT Surgical History: Reports: Cataract Surgery Cardiovascular Surgical History: Reports: None GI Surgical History: Reports: Cholecystectomy, Colonoscopy, Hernia, Abdominal, Other (See Below) Endocrine Surgical History: Reports: None Oncologic Surgical History: Reports: None Social & Family History - Family History Cardiac: Reports: Blood Clots/VTE/DVT Dermatologic: Reports: Eczema - Tobacco Use Smoking Status *Q: Never Smoker Used Tobacco, but Quit: Yes Month Tobacco Last Used: Aug 1977 Second Hand Smoke Exposure: No - Caffeine Use Caffeine Use: Reports: Coffee Other Caffeine Use: very little Caffeine Use Comment: rarely - Alcohol Use Days Per Week of Alcohol Use: 0 - Recreational Drug Use Recreational Drug Use: No - Living Situation & Occupation Living situation: Reports: Occupation: Retired (lives with Ron of 52 years in town of [place], [place]. has 6 children and 16 grandchildren.) ED ROS GENERAL - Review of Systems Review Of Systems: See Below Constitutional: Denies: Fever, Chills, Malaise HEENT: Reports: No Symptoms Respiratory: Denies: Shortness of Breath Cardiovascular: Denies: Chest Pain, Palpitations GI/Abdominal: Reports: Diarrhea (Diarrhea secondary to lactulose is unchanged). Denies: Abdominal Pain : Reports: No Symptoms Skin: Reports: Bruising (Bruises easily) Neurological: Reports: Confusion. Denies: Dizziness, Headache Psychiatric: Reports: No Symptoms ED EXAM, GENERAL - Physical Exam Exam: See Below Exam Limited By: No Limitations General Appearance: Alert, No Apparent Distress Eye Exam: Bilateral Eye: EOMI Respiratory/Chest: No Respiratory Distress, Lungs Clear Cardiovascular: Regular Rate, Rhythm GI/Abdominal: Soft, Non-Tender Extremities: Pedal Edema (Patient has a small amount of bilateral symmetric pedal edema) Neurological: Alert, Oriented (At this time the patient seems to be oriented, his memory is intact and is answering questions appropriately) Psychiatric: Normal Affect, Normal Mood Skin Exam: Warm, Dry Course - Vital Signs Last Recorded V/S: Last Vital Signs Temp 98.6 F 06/07/17 20:22 Pulse 59 L 06/07/17 20:22 Resp 15 06/07/17 20:22 BP 117/55 L 06/07/17 20:22 Pulse Ox 96 06/07/17 20:22 - Orders/Labs/Meds Labs: Laboratory Tests 06/07/17 06/07/17 06/07/17 Range/Units 20:49 20:49 20:49 WBC 4.9 (4.5-11.0) K/uL RBC 3.88 L (4.30-5.90) M/uL Hgb 14.5 (12.0-15.0) g/dL Hct 42.7 (40.0-54.0) % MCV 110 H (80-98) fL MCH 37 H (27-31) pg MCHC 34 (32-36) % Plt Count 111 L (150-400) K/uL Neut % (Auto) 57 (36-66) % Lymph % (Auto) 27 (24-44) % [place] % (Auto) 11 H (2-6) % Eos % (Auto) 5 H (2-4) % Baso % (Auto) 1 (0-1) % Sodium 143 (140-148) mmol/L Potassium 4.3 (3.6-5.2) mmol/L Chloride 108 (100-108) mmol/L Carbon Dioxide 29 (21-32) mmol/L Anion Gap 6.4 (5.0-14.0) mmol/L BUN 21 H (7-18) mg/dL Creatinine 1.5 H (0.8-1.3) mg/dL Est Cr Clr Drug Dosing 43.26 mL/min Estimated GFR (MDRD) 46 L (>60) Glucose 142 H (74-106) mg/dL Calcium 7.8 L (8.5-10.1) mg/dL Total Bilirubin 1.8 H D (0.2-1.0) mg/dL AST 45 H (15-37) U/L ALT 38 (12-78) U/L Alkaline Phosphatase 104 (46-116) U/L Ammonia 58 H (11-32) mmol/L Total Protein 5.8 L (6.4-8.2) g/dL Albumin 2.3 L (3.4-5.0) g/dL Globulin 3.5 (2.3-3.5) g/dL Albumin/Globulin Ratio 0.7 L (1.2-2.2) - Re-Assessments/Exams Free Text/Narrative Re-Assessment/Exam: 06/07/17 20:56 An ammonia level, CBC and CMP were obtained. 06/07/17 21:50 Patient's behavior continued to be reassuring. Labs were also very reassuring with his bilirubin at 1.8, the lowest level that we have on record. His ammonia is 58 which is not far from his typical baseline. I encouraged him to not make any medication changes at this time and discuss medicines with his primary physicians. Departure - Departure Time of Disposition: 22:17 Disposition: Home, Self-Care 01 Condition: Good Clinical Impression: Confusion caused by a drug, Increased ammonia level Cirrhosis of liver Qualifiers: Hepatic cirrhosis type: other cirrhosis Qualified Code(s): K74.69 - Other cirrhosis of liver - Discharge Information Instructions: Near-Syncope, [id number] Referrals: Herb Browning MD [Primary Care Provider] - Forms: ED Department Discharge Care Plan Goals: Continue your usual medications and discuss any possible changes or persistent side effects with your primary physicians. Return to the emergency room if worsening or concerns.
== END 2017-06-07 22:18 | disposition home or self-care (01) ==
LOC: JP.ED 19:44
DX: R41.0 Disorientation, unspecified (principal); T50.905A Adverse effect of unspecified drugs, medicaments and biological substances, initial encounter; K74.69 Other cirrhosis of liver; E72.20 Disorder of urea cycle metabolism, unspecified; Z88.1 Allergy status to other antibiotic agents; Z79.899 Other long term (current) drug therapy; I10 Essential (primary) hypertension
CPT/HCPCS: 36415; 80053; 82140; 85025; 99284; 99285

== ENCOUNTER 2017-10-20 11:44 | Emergency (ER) | payer MEDICARE, BC ==
--- NOTE | 2017-10-20 14:36 | EDM.PDOC ---
ED HPI GENERAL MEDICAL PROBLEM - General Chief Complaint: ENT Problem Stated Complaint: BAD COLD W/UPSET STOMACH Time Seen by Provider: 10/20/17 14:22 Source of Information: Reports: Patient, Family, RN Notes Reviewed History Limitations: Reports: No Limitations - History of Present Illness INITIAL COMMENTS - FREE TEXT/NARRATIVE: 77-year-old gentleman presents to the emergency department today with complaint of weakness generalized fatigue that has been progressively getting worse over the last week. He alsohe suffered some hallucinations last night while in bed he awoke and saw individual standing in the doorway. Denies any nausea, vomiting, fevers, shortness of breath, chest pain, symptomatology. Does admit to having intermittent upset stomach and belching a lot - Related Data Allergies Allergy/AdvReac Type Severity Reaction Status Date / Time amoxicillin [From Augmentin] Allergy Mild Abdominal Verified 10/20/17 13:59 Pain clavulanic acid Allergy Mild Abdominal Verified 10/20/17 13:59 [From Augmentin] Pain azithromycin AdvReac Severe Jaundice Verified 04/18/17 21:32 Home Meds: Home Meds Triamcinolone Acetonide [Triamcinolone Acetonide 0.1% Crm] 1 cm TOP BID [History] Spironolactone [Aldactone] 100 mg PO DAILY 09/01/15 [History] Albuterol Sulfate [Proair Hfa] 1 - 2 puff IH Q4HR PRN 03/24/17 [History] Ascorbic Acid 500 mg PO DAILY 03/24/17 [History] Escitalopram [Lexapro] 10 mg PO DAILY 03/24/17 [History] Furosemide 40 mg PO DAILY 03/24/17 [History] Multivit-Min/FA/Lycopene/Lut [Centrum Silver Tablet] 1 each PO DAILY 03/24/17 [ History] Propranolol [Inderal] 10 mg PO BID 03/24/17 [History] Lactulose [Chronulac] 10 gm PO BID #500 ml 04/19/17 [Rx] Rifaximin [Xifaxan] 1 tab PO BID 06/07/17 [History] Past Medical History HEENT History: Reports: Cataract Cardiovascular History: Reports: Hypertension Respiratory History: Reports: Bronchitis, Recurrent, Pneumonia, Recurrent Gastrointestinal History: Reports: Cirrhosis, GI Bleed, PUD Other Gastrointestinal History: fatty liver Genitourinary History: Reports: Urinary Incontinence Musculoskeletal History: Reports: Arthritis Neurological History: Reports: CVA Dermatologic History: Reports: Other (See Below) Other Dermatologic History: rash back of neck - Infectious Disease History Infectious Disease History: Reports: Measles, Mumps - Past Surgical History HEENT Surgical History: Reports: Cataract Surgery GI Surgical History: Reports: Cholecystectomy, Colonoscopy, Hernia, Abdominal, Other (See Below) Endocrine Surgical History: Reports: None Oncologic Surgical History: Reports: None Social & Family History - Family History Cardiac: Reports: Blood Clots/VTE/DVT Dermatologic: Reports: Eczema - Tobacco Use Smoking Status *Q: Never Smoker Used Tobacco, but Quit: Yes Month/Year Tobacco Last Used: Aug 1977 Second Hand Smoke Exposure: No - Caffeine Use Caffeine Use: Reports: Coffee Other Caffeine Use: very little Caffeine Use Comment: rarely - Alcohol Use Days Per Week of Alcohol Use: 0 - Recreational Drug Use Recreational Drug Use: No - Living Situation & Occupation Living situation: Reports: Occupation: Retired (lives with Ron of 52 years in town of [place], [place]. has 6 children and 16 grandchildren.) ED ROS GENERAL - Review of Systems Review Of Systems: See Below Constitutional: Reports: Weakness, Fatigue HEENT: Reports: No Symptoms Respiratory: Reports: No Symptoms Cardiovascular: Reports: No Symptoms GI/Abdominal: Reports: Other (Belching) Musculoskeletal: Reports: No Symptoms Skin: Reports: No Symptoms Neurological: Reports: No Symptoms ED EXAM, GENERAL - Physical Exam Exam: See Below Free Text/Narrative:: General: Male, not in any distress, alert and oriented x3 HEENT: head is atraumatic normocephalic, eyes pupils equal round reactive to light, sclera clear no conjunctivitis appreciated. Ears tympanic membranes clear and allen landmarks and light reflex are present bilaterally canals are clear. Nose no septal deviation, nares are clear, no blood present. Mouth mucosa is moist and pink no erythema or exudate noted in soft palate, tongue is midline uvula is midline, dentition is intact. Neck: Supple no thyromegaly no tracheal deviation. Nodes: Cervical nodes subclavicular nodes nontender no palpable lymphadenopathy noted. Lungs: clear to auscultation bilaterally with symmetrical respirations, no adventitious noise appreciated. CV: Regular rate and rhythm S1 and S2 appreciated no murmurs rubs or gallops noted. Abdomen: Soft, obese, nontender, no palpable masses or organomegaly appreciated , no distention no guarding bowel sounds are present, . Neuro: Cranial nerves II through XII grossly intact Skin: Warm and dry, intact Extremities: No lower extremity edema appreciated, pedal pulse is +2. Course - Vital Signs Last Recorded V/S: Last Vital Signs Temp 97.5 F 10/20/17 13:33 Pulse 56 L 10/20/17 14:05 Resp 16 10/20/17 14:05 BP 130/75 10/20/17 14:05 Pulse Ox 95 10/20/17 14:05 - Orders/Labs/Meds Orders: Active Orders 24 hr Category Date Time Status UA W/MICROSCOPIC [URIN] Urgent Lab 10/20/17 14:24 Ordered Labs: Laboratory Tests 10/20/17 10/20/17 10/20/17 Range/Units 14:24 14:45 14:45 WBC 5.5 (4.5-11.0) K/uL RBC 4.09 L (4.30-5.90) M/uL Hgb 15.0 (12.0-15.0) g/dL Hct 44.2 (40.0-54.0) % MCV 108 H (80-98) fL MCH 37 H (27-31) pg MCHC 34 (32-36) % Plt Count 96 L (150-400) K/uL Neut % (Auto) 55 (36-66) % Lymph % (Auto) 25 (24-44) % [place] % (Auto) 14 H (2-6) % Eos % (Auto) 6 H (2-4) % Baso % (Auto) 0 (0-1) % Sodium 140 (140-148) mmol/L Potassium 4.0 (3.6-5.2) mmol/L Chloride 106 (100-108) mmol/L Carbon Dioxide 29 (21-32) mmol/L Anion Gap 5.4 (5.0-14.0) mmol/L BUN 14 (7-18) mg/dL Creatinine 1.1 (0.8-1.3) mg/dL Est Cr Clr Drug Dosing 57.13 mL/min Estimated GFR (MDRD) > 60 (>60) Glucose 61 L (74-106) mg/dL Calcium 7.6 L (8.5-10.1) mg/dL Total Bilirubin 2.7 H (0.2-1.0) mg/dL AST 60 H (15-37) U/L ALT 45 (12-78) U/L Alkaline Phosphatase 107 (46-116) U/L Ammonia (11-32) mmol/L Troponin I (0.000-0.056) ng/mL C-Reactive Protein 0.45 H (0.0-0.3) mg/dL Total Protein 5.6 L (6.4-8.2) g/dL Albumin 2.3 L (3.4-5.0) g/dL Globulin 3.3 (2.3-3.5) g/dL Albumin/Globulin Ratio 0.7 L (1.2-2.2) TSH, Ultra Sensitive (0.358-3.740) uIU/mL Urine Color Yellow Urine Appearance Clear Urine pH 5.0 (4.5-8.0) Ur Specific [place] 1.015 (1.008-1.030) Urine Protein Negative (NEGATIVE) mg/dL Urine Glucose (UA) Normal (NEGATIVE) mg/dL Urine Ketones Negative (NEGATIVE) mg/dL Urine Occult Blood Trace (NEGATIVE) Urine Nitrite Negative (NEGAITVE) Urine Bilirubin Negative (NEGATIVE) Urine Urobilinogen Normal (NORMAL) mg/dL Ur Leukocyte Esterase Negative (NEGATIVE) Urine RBC 0-5 (0-5) Urine WBC Not seen (0-5) Ur Epithelial Cells Few Amorphous Sediment Not seen Urine Bacteria Rare Urine Mucus Not seen 10/20/17 10/20/17 10/20/17 Range/Units 14:45 14:45 14:45 WBC (4.5-11.0) K/uL RBC (4.30-5.90) M/uL Hgb (12.0-15.0) g/dL Hct (40.0-54.0) % MCV (80-98) fL MCH (27-31) pg MCHC (32-36) % Plt Count (150-400) K/uL Neut % (Auto) (36-66) % Lymph % (Auto) (24-44) % [place] % (Auto) (2-6) % Eos % (Auto) (2-4) % Baso % (Auto) (0-1) % Sodium (140-148) mmol/L Potassium (3.6-5.2) mmol/L Chloride (100-108) mmol/L Carbon Dioxide (21-32) mmol/L Anion Gap (5.0-14.0) mmol/L BUN (7-18) mg/dL Creatinine (0.8-1.3) mg/dL Est Cr Clr Drug Dosing mL/min Estimated GFR (MDRD) (>60) Glucose (74-106) mg/dL Calcium (8.5-10.1) mg/dL Total Bilirubin (0.2-1.0) mg/dL AST (15-37) U/L ALT (12-78) U/L Alkaline Phosphatase (46-116) U/L Ammonia 41 H (11-32) mmol/L Troponin I < 0.017 (0.000-0.056) ng/mL C-Reactive Protein (0.0-0.3) mg/dL Total Protein (6.4-8.2) g/dL Albumin (3.4-5.0) g/dL Globulin (2.3-3.5) g/dL Albumin/Globulin Ratio (1.2-2.2) TSH, Ultra Sensitive 3.285 (0.358-3.740) uIU/mL Urine Color Urine Appearance Urine pH (4.5-8.0) Ur Specific [place] (1.008-1.030) Urine Protein (NEGATIVE) mg/dL Urine Glucose (UA) (NEGATIVE) mg/dL Urine Ketones (NEGATIVE) mg/dL Urine Occult Blood (NEGATIVE) Urine Nitrite (NEGAITVE) Urine Bilirubin (NEGATIVE) Urine Urobilinogen (NORMAL) mg/dL Ur Leukocyte Esterase (NEGATIVE) Urine RBC (0-5) Urine WBC (0-5) Ur Epithelial Cells Amorphous Sediment Urine Bacteria Urine Mucus Departure - Departure Time of Disposition: 16:22 Disposition: Home, Self-Care 01 Condition: Fair Clinical Impression: Weakness - Discharge Information Referrals: Herb Browning MD [Primary Care Provider] - Forms: ED Department Discharge Additional Instructions: Continue your regular medications, follow-up with your primary care provider in the next 3-5 days for reevaluation - My Orders Last 24 Hours: My Active Orders 10/20/17 14:24 UA W/MICROSCOPIC [URIN] Urgent - Assessment/Plan Last 24 Hours: My Active Orders 10/20/17 14:24 UA W/MICROSCOPIC [URIN] Urgent Plan: Assessment Acuity = acute Site and laterality = fatigue complicated in a patient with known history of liver cirrhosis on lactulose with history of hepatic encephalopathy Etiology = unclear etiology Manifestations = none Location of injury = Home Lab values = CBC CMP no significant change from prior, ammonia level elevated at 41, thyroid normal at 3.28 , urinalysis unremarkable Plan [I did review lab work with him as well as urinalysis to follow-up with his primary care the next 3-5 days for reevaluation This note was dictated using [email or web address] voice recognition software please call with any questions on syntax or pauly.
[2017-10-20 14:42] VITALS: BP 130/75
== END 2017-10-20 16:31 | disposition home or self-care (01) ==
LOC: JP.ED 11:44
DX: R53.1 Weakness (principal); I10 Essential (primary) hypertension; Z88.1 Allergy status to other antibiotic agents; Z88.8 Allergy status to other drugs, medicaments and biological substances; Z79.899 Other long term (current) drug therapy; Z87.891 Personal history of nicotine dependence
CPT/HCPCS: 36415; 80053; 81001; 82140; 84443; 84484; 85025; 86140; 99282; 99285

== ENCOUNTER 2017-12-24 14:05 | Emergency (ER) | payer MEDICARE, BC ==
--- NOTE | 2017-12-24 16:28 | EDM.PDOC ---
ED HPI GENERAL MEDICAL PROBLEM - General Chief Complaint: General Stated Complaint: SLIGHT HEADACHE,WEAKNESS Time Seen by Provider: 12/24/17 16:25 Source of Information: Reports: Patient History Limitations: Reports: No Limitations - History of Present Illness INITIAL COMMENTS - FREE TEXT/NARRATIVE: pt has been sleeping alot more. He has a history of cirrhosis of the liver. He has a slight increase in his ankle swelling. Onset: Gradual, Other (last 2-3 days. ) Duration: Hour(s): Location: Reports: Generalized Associated Symptoms: Reports: Cough, Weakness - Related Data Allergies Allergy/AdvReac Type Severity Reaction Status Date / Time amoxicillin [From Augmentin] Allergy Mild Abdominal Verified 12/24/17 15:59 Pain clavulanic acid Allergy Mild Abdominal Verified 12/24/17 15:59 [From Augmentin] Pain Home Meds: Home Meds Triamcinolone Acetonide [Triamcinolone Acetonide 0.1% Crm] 1 cm TOP BID [History] Spironolactone [Aldactone] 100 mg PO DAILY 09/01/15 [History] Albuterol Sulfate [Proair Hfa] 1 - 2 puff IH Q4HR PRN 03/24/17 [History] Ascorbic Acid 500 mg PO DAILY 03/24/17 [History] Escitalopram [Lexapro] 10 mg PO DAILY 03/24/17 [History] Furosemide 40 mg PO DAILY 03/24/17 [History] Multivit-Min/FA/Lycopene/Lut [Centrum Silver Tablet] 1 each PO DAILY 03/24/17 [ History] Propranolol [Inderal] 10 mg PO BID 03/24/17 [History] Lactulose [Chronulac] 10 gm PO BID #500 ml 04/19/17 [Rx] Rifaximin [Xifaxan] 1 tab PO BID 06/07/17 [History] Omeprazole Magnesium [Prilosec] 40 mg PO DAILY 12/24/17 [History] Past Medical History HEENT History: Reports: Cataract Cardiovascular History: Reports: Hypertension Respiratory History: Reports: Bronchitis, Recurrent, Pneumonia, Recurrent Gastrointestinal History: Reports: Cirrhosis, Gastritis, GI Bleed, PUD Other Gastrointestinal History: fatty liver Genitourinary History: Reports: Urinary Incontinence Musculoskeletal History: Reports: Arthritis, Osteoarthritis Neurological History: Reports: CVA Dermatologic History: Reports: Other (See Below) Other Dermatologic History: rash back of neck - Infectious Disease History Infectious Disease History: Reports: Measles, Mumps - Past Surgical History HEENT Surgical History: Reports: Cataract Surgery Cardiovascular Surgical History: Reports: None Respiratory Surgical History: Reports: None GI Surgical History: Reports: Cholecystectomy, Colonoscopy, Hernia, Abdominal Male Surgical History: Reports: None Social & Family History - Family History Cardiac: Reports: Blood Clots/VTE/DVT Dermatologic: Reports: Eczema - Tobacco Use Smoking Status *Q: Never Smoker Second Hand Smoke Exposure: No - Caffeine Use Caffeine Use: Reports: Coffee Other Caffeine Use: very little Caffeine Use Comment: rarely - Recreational Drug Use Recreational Drug Use: No - Living Situation & Occupation Living situation: Reports: Occupation: Retired (lives with Ron of 52 years in [place], [place]. has 6 children and 16 grandchildren.) ED ROS GENERAL - Review of Systems Review Of Systems: See Below Constitutional: Reports: No Symptoms HEENT: Reports: No Symptoms Respiratory: Reports: Shortness of Breath, Other ( mild sob) Cardiovascular: Reports: No Symptoms Endocrine: Reports: Other (bs is 60. ) GI/Abdominal: Reports: Other (pt has known cirrhosis of the liver) : Reports: No Symptoms Musculoskeletal: Reports: No Symptoms Skin: Reports: No Symptoms Neurological: Reports: No Symptoms ED EXAM, GENERAL - Physical Exam Exam: See Below Free Text/Narrative:: pt arrived with a history of fatique which has been more this week. He has had alot of appointments in the last few days. This may have tired him out. His bs is 60. Exam Limited By: No Limitations General Appearance: Alert, Mild Distress Ears: Normal TMs Nose: Normal Inspection Throat/Mouth: Normal Inspection Head: Atraumatic Neck: Normal Inspection Respiratory/Chest: No Respiratory Distress Cardiovascular: Regular Rate, Rhythm GI/Abdominal: Soft, Non-Tender, Other (mild tenderness over the liver) (Male) Exam: Deferred Rectal (Males) Exam: Deferred Back Exam: Normal Inspection Extremities: Pedal Edema, Other (pt has pluse 3. ) Neurological: Alert, Oriented, Normal Cognition Course - Vital Signs Last Recorded V/S: Last Vital Signs Temp 36.8 C 12/24/17 15:45 Pulse 52 L 12/24/17 17:30 Resp 16 05/31/18 17:30 BP 130/46 L 05/31/18 17:30 Pulse Ox 96 12/24/17 17:30 - Orders/Labs/Meds Orders: Active Orders 24 hr Category Date Time Status Chest 2V [CR] Stat Exams 12/24/17 16:27 Taken UA W/MICROSCOPIC [URIN] Urgent Lab 12/24/17 16:24 Ordered Labs: Laboratory Tests 12/24/17 12/24/17 12/24/17 Range/Units 16:24 16:35 16:35 WBC 6.6 (4.5-11.0) K/uL RBC 3.92 L (4.30-5.90) M/uL Hgb 14.9 (12.0-15.0) g/dL Hct 41.7 (40.0-54.0) % MCV 106 H (80-98) fL MCH 38 H (27-31) pg MCHC 36 (32-36) % Plt Count 92 L (150-400) K/uL Neut % (Auto) 58 (36-66) % Lymph % (Auto) 24 (24-44) % [place] % (Auto) 14 H (2-6) % Eos % (Auto) 4 (2-4) % Baso % (Auto) 0 (0-1) % Sodium 140 (140-148) mmol/L Potassium 4.5 (3.6-5.2) mmol/L Chloride 105 (100-108) mmol/L Carbon Dioxide 31 (21-32) mmol/L Anion Gap 3.7 L (5.0-14.0) mmol/L BUN 17 (7-18) mg/dL Creatinine 1.4 H (0.8-1.3) mg/dL Est Cr Clr Drug Dosing 45.62 mL/min Estimated GFR (MDRD) 49 L (>60) Glucose 92 (74-106) mg/dL Calcium 7.8 L (8.5-10.1) mg/dL Total Bilirubin 3.1 H (0.2-1.0) mg/dL AST 51 H (15-37) U/L ALT 48 (12-78) U/L Alkaline Phosphatase 125 H (46-116) U/L Ammonia (11-32) mmol/L Total Protein 5.8 L (6.4-8.2) g/dL Albumin 2.3 L (3.4-5.0) g/dL Globulin 3.5 (2.3-3.5) g/dL Albumin/Globulin Ratio 0.7 L (1.2-2.2) Urine Color [place] Urine Appearance Clear Urine pH 6.0 (4.5-8.0) Ur Specific [place] 1.015 (1.008-1.030) Urine Protein Negative (NEGATIVE) mg/dL Urine Glucose (UA) Normal (NEGATIVE) mg/dL Urine Ketones Negative (NEGATIVE) mg/dL Urine Occult Blood Moderate (NEGATIVE) Urine Nitrite Negative (NEGAITVE) Urine Bilirubin Small (NEGATIVE) Urine Urobilinogen 4 (NORMAL) mg/dL Ur Leukocyte Esterase Negative (NEGATIVE) Urine RBC 10-20 H (0-5) Urine WBC Not seen (0-5) Ur Epithelial Cells Few Amorphous Sediment Rare Urine Bacteria Not seen Urine Mucus Not seen 12/24/17 Range/Units 16:35 WBC (4.5-11.0) K/uL RBC (4.30-5.90) M/uL Hgb (12.0-15.0) g/dL Hct (40.0-54.0) % MCV (80-98) fL MCH (27-31) pg MCHC (32-36) % Plt Count (150-400) K/uL Neut % (Auto) (36-66) % Lymph % (Auto) (24-44) % [place] % (Auto) (2-6) % Eos % (Auto) (2-4) % Baso % (Auto) (0-1) % Sodium (140-148) mmol/L Potassium (3.6-5.2) mmol/L Chloride (100-108) mmol/L Carbon Dioxide (21-32) mmol/L Anion Gap (5.0-14.0) mmol/L BUN (7-18) mg/dL Creatinine (0.8-1.3) mg/dL Est Cr Clr Drug Dosing mL/min Estimated GFR (MDRD) (>60) Glucose (74-106) mg/dL Calcium (8.5-10.1) mg/dL Total Bilirubin (0.2-1.0) mg/dL AST (15-37) U/L ALT (12-78) U/L Alkaline Phosphatase (46-116) U/L Ammonia 62 H (11-32) mmol/L Total Protein (6.4-8.2) g/dL Albumin (3.4-5.0) g/dL Globulin (2.3-3.5) g/dL Albumin/Globulin Ratio (1.2-2.2) Urine Color Urine Appearance Urine pH (4.5-8.0) Ur Specific [place] (1.008-1.030) Urine Protein (NEGATIVE) mg/dL Urine Glucose (UA) (NEGATIVE) mg/dL Urine Ketones (NEGATIVE) mg/dL Urine Occult Blood (NEGATIVE) Urine Nitrite (NEGAITVE) Urine Bilirubin (NEGATIVE) Urine Urobilinogen (NORMAL) mg/dL Ur Leukocyte Esterase (NEGATIVE) Urine RBC (0-5) Urine WBC (0-5) Ur Epithelial Cells Amorphous Sediment Urine Bacteria Urine Mucus Meds: Medications Discontinued Medications Generic Name Dose Route Start Last Admin Trade Name Freq PRN Reason Stop Dose Admin Ondansetron HCl 2 mg 12/24/17 18:15 Zofran Odt PO 12/24/17 18:16 ONETIME ONE Departure - Departure Time of Disposition: 18:29 Disposition: Home, Self-Care 01 Condition: Fair Clinical Impression: Hypoglycemia, Fluid overload, Bronchitis - Discharge Information Referrals: Herb Browning MD [Primary Care Provider] - Forms: ED Department Discharge Care Plan Goals: zithromax 500mg now and 250mg daily for 4 days, increase lasix to 60mg for 3 days, appt with Dr Browning the first of the week. - My Orders Last 24 Hours: My Active Orders 12/24/17 16:24 UA W/MICROSCOPIC [URIN] Urgent 12/24/17 16:27 Chest 2V [CR] Stat - Assessment/Plan Last 24 Hours: My Active Orders 12/24/17 16:24 UA W/MICROSCOPIC [URIN] Urgent 12/24/17 16:27 Chest 2V [CR] Stat
[2017-12-24] MEDS ORDERED: Ondansetron 4 MG Tab.DIS PO ONE (18:15)
[2017-12-24] MEDS ORDERED: Furosemide 40 MG/4 ML VIAL IM ONE (18:28)
[2017-12-24 18:55] VITALS: BP 160/68
--- NOTE | 2017-12-25 09:28 | CR ---
Mild cardiomegaly. Mild interstitial thickening can suggest mild interstitial edema. There is hazy de nsity within the right middle lobe which can indicate developing infiltrate. This could indicate infe ction or edema.
== END 2017-12-24 19:08 | disposition home or self-care (01) ==
LOC: JP.ED 14:05
DX: E87.70 Fluid overload, unspecified (principal); E16.2 Hypoglycemia, unspecified; J40 Bronchitis, not specified as acute or chronic; I10 Essential (primary) hypertension; Z88.1 Allergy status to other antibiotic agents; Z79.899 Other long term (current) drug therapy
CPT/HCPCS: 36415; 71046; 80053; 81001; 82140; 85025; 96372; 99284; J1940; 99283

== ENCOUNTER 2018-04-08 09:46 | Emergency (ER) | payer MEDICARE, BC ==
--- NOTE | 2018-04-08 10:21 | EDM.PDOC ---
ED HPI GENERAL MEDICAL PROBLEM - General Chief Complaint: Lower Extremity Injury/Pain Stated Complaint: RIGHT LEG POSSIBLE CELLULITIS Time Seen by Provider: 04/08/18 10:21 Source of Information: Reports: Patient History Limitations: Reports: No Limitations - History of Present Illness INITIAL COMMENTS - FREE TEXT/NARRATIVE: pt fell about 11 days ago and hit his rt side. He has alot bruising in the rt lower leg and foot. He has redness and warmth in the calf area. and anterior lower leg. Onset: Other (pt fell 11 days ago but the redness and warmth just started. ) Duration: Day(s): Location: Reports: Lower Extremity, Right Associated Symptoms: Reports: No Other Symptoms - Related Data Allergies Allergy/AdvReac Type Severity Reaction Status Date / Time amoxicillin [From Augmentin] Allergy Mild Abdominal Verified 12/24/17 15:59 Pain clavulanic acid Allergy Mild Abdominal Verified 12/24/17 15:59 [From Augmentin] Pain Home Meds: Home Meds Triamcinolone Acetonide [Triamcinolone Acetonide 0.1% Crm] 1 cm TOP BID [History] Spironolactone [Aldactone] 100 mg PO DAILY 09/01/15 [History] Albuterol Sulfate [Proair Hfa] 1 - 2 puff IH Q4HR PRN 03/24/17 [History] Ascorbic Acid 500 mg PO DAILY 03/24/17 [History] Escitalopram [Lexapro] 10 mg PO DAILY 03/24/17 [History] Multivit-Min/FA/Lycopene/Lut [Centrum Silver Tablet] 1 each PO DAILY 03/24/17 [ History] Propranolol [Inderal] 10 mg PO BID 03/24/17 [History] Lactulose [Chronulac] 10 gm PO BID #500 ml 04/19/17 [Rx] Rifaximin [Xifaxan] 1 tab PO BID 06/07/17 [History] Omeprazole Magnesium [Prilosec] 40 mg PO DAILY 12/24/17 [History] Doxycycline [Vibramycin] 100 mg PO DAILY 04/08/18 [History] Torsemide [Demadex] 40 mg PO DAILY 04/08/18 [History] Past Medical History HEENT History: Reports: Cataract Cardiovascular History: Reports: Hypertension Respiratory History: Reports: Bronchitis, Recurrent, Pneumonia, Recurrent Gastrointestinal History: Reports: Cirrhosis, Gastritis, GI Bleed, PUD Other Gastrointestinal History: fatty liver Genitourinary History: Reports: Urinary Incontinence Musculoskeletal History: Reports: Arthritis, Osteoarthritis Neurological History: Reports: CVA Dermatologic History: Reports: Other (See Below) Other Dermatologic History: rash back of neck - Infectious Disease History Infectious Disease History: Reports: Measles, Mumps - Past Surgical History HEENT Surgical History: Reports: Cataract Surgery Cardiovascular Surgical History: Reports: None Respiratory Surgical History: Reports: None GI Surgical History: Reports: Cholecystectomy, Colonoscopy, Hernia, Abdominal Male Surgical History: Reports: None Social & Family History - Family History Cardiac: Reports: Blood Clots/VTE/DVT Dermatologic: Reports: Eczema - Tobacco Use Smoking Status *Q: Never Smoker - Caffeine Use Caffeine Use: Reports: Soda Other Caffeine Use: very little Caffeine Use Comment: rarely - Recreational Drug Use Recreational Drug Use: No - Living Situation & Occupation Living situation: Reports: Occupation: Retired (lives with Ron of 52 years in [place], [place]. has 6 children and 16 grandchildren.) Review of Systems - Review of Systems Review Of Systems: See Below Constitutional: Reports: No Symptoms Eyes: Reports: No Symptoms Ears: Reports: No Symptoms Nose: Reports: No Symptoms Mouth/Throat: Reports: No Symptoms Respiratory: Reports: No Symptoms Cardiovascular: Reports: No Symptoms GI/Abdominal: Reports: No Symptoms Genitourinary: Reports: No Symptoms Musculoskeletal: Reports: Other (swelling and discoloration of the rt lower leg and foot. He has redness in the ant lower leg and this feels quite warm. ) Skin: Reports: No Symptoms ED EXAM, GENERAL - Physical Exam Exam: See Below Free Text/Narrative:: pt fell about 11 days ago. He now has swelling, bruising and redness in the lower leg. Exam Limited By: No Limitations General Appearance: Alert, Anxious, Mild Distress Ears: Normal TMs Nose: Normal Inspection Throat/Mouth: Normal Inspection Head: Atraumatic Neck: Normal Inspection Respiratory/Chest: No Respiratory Distress Cardiovascular: Regular Rate, Rhythm GI/Abdominal: Soft, Non-Tender (Male) Exam: Deferred Rectal (Males) Exam: Deferred Back Exam: Normal Inspection Extremities: Pedal Edema, Increased Warmth, Other (alot of discolration and redness in the anterior lower leg. ) Neurological: Alert, Oriented, Normal Cognition Psychiatric: Normal Affect Course - Vital Signs Last Recorded V/S: Last Vital Signs Temp 35.8 C 04/08/18 10:10 Pulse 53 L 04/08/18 11:25 Resp 11 L 04/08/18 11:25 BP 126/45 L 04/08/18 11:25 Pulse Ox 97 04/08/18 11:25 - Orders/Labs/Meds Labs: Laboratory Tests 04/08/18 Range/Units 10:18 WBC 6.2 (4.5-11.0) K/uL RBC 3.66 L (4.30-5.90) M/uL Hgb 14.0 (12.0-15.0) g/dL Hct 40.2 (40.0-54.0) % MCV 110 H (80-98) fL MCH 38 H (27-31) pg MCHC 35 (32-36) % Plt Count 122 L (150-400) K/uL Neut % (Auto) 51 (36-66) % Lymph % (Auto) 26 (24-44) % [place] % (Auto) 15 H (2-6) % Eos % (Auto) 8 H (2-4) % Baso % (Auto) 1 (0-1) % - Re-Assessments/Exams Free Text/Narrative Re-Assessment/Exam: 04/08/18 11:49 pt had an xray which did not reveal any katie abnormalities. He had a Us which did not show a dvt Departure - Departure Time of Disposition: 11:24 Disposition: Home, Self-Care 01 Condition: Fair Clinical Impression: Cellulitis - Discharge Information Instructions: Cellulitis, Adult, [id number] Referrals: Vijay Deutsch NP [Primary Care Provider] - Forms: ED Department Discharge Care Plan Goals: elevate leg when possible, moist warm packs to the lower leg-rt. keflex 500mg tid for 10 days. rtc if problems. See regular provider in 1 week.
--- NOTE | 2018-04-08 11:16 | CR ---
Tibia Fibula Rt HISTORY: red inflamed leg FINDINGS: No acute fracture or dislocation is identified. Bony architecture is preserved. There are degenerat maria eugenia changes at the ankle mortise. Soft tissues are unremarkable. IMPRESSION: Degenerative changes right ankle. No acute right tibia or fibula abnormality is identified.
--- NOTE | 2018-04-08 11:17 | US ---
VL Duplex Lwr Ext Veins Ltd Rt HISTORY: swollen painful rt leg FINDINGS: Deep venous system of the right lower extremity demonstrates normal blood flow and compressibility th roughout. Normal Doppler waveform variation is seen with respiration and calf compression. No color f low abnormality can be seen. IMPRESSION: No sonographic evidence for DVT right lower extremity.
[2018-04-08 11:26] VITALS: BP 126/45
== END 2018-04-08 12:19 | disposition home or self-care (01) ==
LOC: JP.ED 09:46
DX: L03.115 Cellulitis of right lower limb (principal); I10 Essential (primary) hypertension; Z79.899 Other long term (current) drug therapy; Z88.1 Allergy status to other antibiotic agents
CPT/HCPCS: 36415; 73590-26-RT; 73590-RT; 85025; 93971-26; 93971-RT; 99284-25

== ENCOUNTER 2018-04-10 17:53 | Inpatient (IN) | payer MEDICARE, BC ==
--- NOTE | 2018-04-10 18:54 | EDM.PDOC ---
ED HPI GENERAL MEDICAL PROBLEM - General Chief Complaint: Back Pain or Injury Stated Complaint: FELL HURT BACK Time Seen by Provider: 04/10/18 18:25 Source of Information: Reports: Patient, EMS, Family History Limitations: Reports: No Limitations - History of Present Illness INITIAL COMMENTS - FREE TEXT/NARRATIVE: 78-year-old male with chronic cirrhosis, weakness, who has been falling more often recently but has not been febrile or significantly ill. He did sustain a bruise on his right lower leg that became cellulitic and is on an antibiotic. This afternoon he was in the shower, slipped and struck his mid to lower back on the edge of the chair that's in the shower and fell onto the floor. He had too much discomfort to get up on his own, so his sons helped him onto the toilet for a while, then he was able to ambulate to bed. After resting for an hour or two he wasn't able to get out of bed and couldn't even sit up so they called the ambulance. He is complaining of intense pain in his mid to lower thoracic spine and upper lumbar area. No radiculopathy or neurologic deficits are included in his complaints. He received 100 g of fentanyl in 3 separate doses in route to the hospital and does feel better. He is able to roll up onto his side for his exam but it is painful. 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 (see below) (Fentanyl was received in route per EMS) Right Arm Pain Score (Numeric/FACES): 5 - Related Data Allergies Allergy/AdvReac Type Severity Reaction Status Date / Time amoxicillin [From Augmentin] Allergy Mild Abdominal Verified 12/24/17 15:59 Pain clavulanic acid Allergy Mild Abdominal Verified 12/24/17 15:59 [From Augmentin] Pain Home Meds: Home Meds Triamcinolone Acetonide [Triamcinolone Acetonide 0.1% Crm] 1 cm TOP BID [History] Spironolactone [Aldactone] 100 mg PO DAILY 09/01/15 [History] Albuterol Sulfate [Proair Hfa] 1 - 2 puff IH Q4HR PRN 03/24/17 [History] Ascorbic Acid 500 mg PO DAILY 03/24/17 [History] Escitalopram [Lexapro] 10 mg PO DAILY 03/24/17 [History] Multivit-Min/FA/Lycopene/Lut [Centrum Silver Tablet] 1 each PO DAILY 03/24/17 [ History] Propranolol [Inderal] 10 mg PO BID 03/24/17 [History] Lactulose [Chronulac] 10 gm PO BID #500 ml 04/19/17 [Rx] Rifaximin [Xifaxan] 1 tab PO BID 06/07/17 [History] Omeprazole Magnesium [Prilosec] 40 mg PO DAILY 12/24/17 [History] Torsemide [Demadex] 40 mg PO DAILY 04/08/18 [History] cephALEXin [Keflex] 500 mg PO TID 04/10/18 [History] Past Medical History HEENT History: Reports: Cataract Cardiovascular History: Reports: Hypertension Respiratory History: Reports: Bronchitis, Recurrent, Pneumonia, Recurrent Gastrointestinal History: Reports: Cirrhosis, Gastritis, GI Bleed, PUD Other Gastrointestinal History: fatty liver Genitourinary History: Reports: Urinary Incontinence Musculoskeletal History: Reports: Arthritis, Osteoarthritis Neurological History: Reports: CVA Dermatologic History: Reports: Other (See Below) Other Dermatologic History: rash back of neck cellulitis R lower leg - Infectious Disease History Infectious Disease History: Reports: Measles, Mumps - Past Surgical History HEENT Surgical History: Reports: Cataract Surgery Cardiovascular Surgical History: Reports: None Respiratory Surgical History: Reports: None GI Surgical History: Reports: Cholecystectomy, Colonoscopy, Hernia, Abdominal Male Surgical History: Reports: None Social & Family History - Family History Cardiac: Reports: Blood Clots/VTE/DVT Dermatologic: Reports: Eczema - Tobacco Use Smoking Status *Q: Never Smoker - Caffeine Use Caffeine Use: Reports: Coffee Other Caffeine Use: very little Caffeine Use Comment: rarely - Recreational Drug Use Recreational Drug Use: No - Living Situation & Occupation Living situation: Reports: Occupation: Retired (lives with Ron of 52 years in [facility] [employer], [place]. has 6 children and 16 grandchildren.) ED ROS GENERAL - Review of Systems Review Of Systems: See Below Constitutional: Reports: Weakness. Denies: Fever HEENT: Reports: No Symptoms Respiratory: Denies: Shortness of Breath Cardiovascular: Denies: Chest Pain GI/Abdominal: Reports: Diarrhea (His chronic baseline diarrhea from lactulose therapy). Denies: Abdominal Pain, Nausea Skin: Reports: Bruising (Patient does have widespread bruising from frequent falls especially in the extremities, he has a fairly large area of bruising and erythema on the right lower extremity recently diagnosed with cellulitis) Neurological: Reports: Confusion (Mild chronic confusion, he's actually doing very well right now) Psychiatric: Reports: No Symptoms ED EXAM,LOWER BACK PAIN/INJURY - Physical Exam Exam: See Below Exam Limited By: No Limitations General Appearance: Alert, No Apparent Distress (Not distress while lying still , pain is markedly increased with any movement) Head: Atraumatic Neck: Supple, Non-Tender Respiratory/Chest: No Respiratory Distress, Lungs Clear Cardiovascular: Regular Rate, Rhythm GI/Abdominal: Soft, Non-Tender, Hepatomegaly Back Exam: Vertebral Tenderness (Vertebral percussion is very tender over the mid to lower thoracic spine and upper lumbar spine) Extremities: Pedal Edema (Some pitting edema is present bilaterally, somewhat worse on the right) Neurological: Alert, Oriented x 3 Skin Exam: Warm, Dry, Other (Several bruises on his extremities especially upper extremities in different stages of healing. Ecchymosis and erythema of the right lower extremity is present especially laterally and distal to the knee.) Course - Vital Signs Last Recorded V/S: Last Vital Signs Temp 99.0 F 04/10/18 22:12 Pulse 55 L 04/10/18 22:12 Resp 16 04/10/18 22:12 BP 124/45 L 04/10/18 22:12 Pulse Ox 94 L 04/10/18 22:12 - Orders/Labs/Meds Orders: Active Orders 24 hr Category Date Time Status Lumbar Spine wo Cont [CT] Stat Exams 04/10/18 18:39 Taken Thoracic Spine wo Cont [CT] Stat Exams 04/10/18 18:39 Taken Medication Orders Acetaminophen (Tylenol) 650 mg PO Q4H PRN PRN Reason: Pain (Mild 1-3)/fever Cephalexin (Keflex) 500 mg PO TID [facility] Escitalopram Oxalate (Lexapro) 10 mg PO DAILY [facility] Fentanyl (Sublimaze) 25 mcg IVPUSH Q4H PRN PRN Reason: Pain (severe 7-10) Sodium Chloride (Normal Saline) 1,000 mls @ 125 mls/hr IV ASDIRECTED [facility]AI Stop: 04/11/18 06:06 Lactulose (Chronulac) 10 gm PO BID [facility] Ondansetron HCl (Zofran Odt) 4 mg PO Q6H PRN PRN Reason: Nausea able to take PO Oxycodone HCl (Oxycodone) 5 mg PO Q4H PRN PRN Reason: Pain (moderate 4-6) Pantoprazole Sodium (Protonix) 40 mg PO ACBREAKFAST [facility] Propranolol HCl (Inderal) 10 mg PO BID [facility] Rifaximin (Xifaxan) 550 mg PO BID [facility] Spironolactone (Aldactone) 50 mg PO DAILY [facility] Torsemide (Demadex) 40 mg PO DAILY [facility] Trolamine Salicylate (Aspercreme 10%) 1 gm TOP Q1H PRN PRN Reason: back pain Labs: Laboratory Tests 04/10/18 04/10/18 04/10/18 Range/Units 20:18 20:18 20:18 WBC 7.3 (4.5-11.0) K/uL RBC 3.55 L (4.30-5.90) M/uL Hgb 13.9 (12.0-15.0) g/dL Hct 38.8 L (40.0-54.0) % MCV 109 H (80-98) fL MCH 39 H (27-31) pg MCHC 36 (32-36) % Plt Count 89 L (150-400) K/uL Neut % (Auto) 77 H (36-66) % Lymph % (Auto) 12 L (24-44) % [place] % (Auto) 10 H (2-6) % Eos % (Auto) 2 (2-4) % Baso % (Auto) 0 (0-1) % Sodium 135 L (140-148) mmol/L Potassium 5.2 (3.6-5.2) mmol/L Chloride 101 (100-108) mmol/L Carbon Dioxide 30 (21-32) mmol/L Anion Gap 9.2 (5.0-14.0) mmol/L BUN 44 H D (7-18) mg/dL Creatinine 2.1 H (0.8-1.3) mg/dL Est Cr Clr Drug Dosing 29.46 mL/min Estimated GFR (MDRD) 31 L (>60) Glucose 113 H (74-106) mg/dL Calcium 8.1 L (8.5-10.1) mg/dL Total Bilirubin 4.2 H (0.2-1.0) mg/dL AST 55 H (15-37) U/L ALT 36 (12-78) U/L Alkaline Phosphatase 152 H (46-116) U/L Ammonia 12 (11-32) mmol/L Total Protein 5.8 L (6.4-8.2) g/dL Albumin 2.1 L (3.4-5.0) g/dL Globulin 3.7 H (2.3-3.5) g/dL Albumin/Globulin Ratio 0.6 L (1.2-2.2) Meds: Medications Generic Name Dose Route Start Last Admin Trade Name Freq PRN Reason Stop Dose Admin Acetaminophen 650 mg 04/10/18 22:05 Tylenol PO Q4H PRN Pain (Mild 1-3)/fever Cephalexin 500 mg 04/10/18 22:05 Keflex PO TID [facility] Escitalopram Oxalate 10 mg 04/11/18 09:00 Lexapro PO DAILY [facility] Fentanyl 25 mcg 04/10/18 22:05 Sublimaze IVPUSH Q4H PRN Pain (severe 7-10) Sodium Chloride 1,000 mls @ 125 mls/hr 04/10/18 22:05 Normal Saline IV 04/11/18 06:06 ASDIRECTED [facility] Lactulose 10 gm 04/11/18 09:00 Chronulac PO BID [facility] Ondansetron HCl 4 mg 04/10/18 22:05 Zofran Odt PO Q6H PRN Nausea able to take PO Oxycodone HCl 5 mg 04/10/18 22:05 Oxycodone PO Q4H PRN Pain (moderate 4-6) Pantoprazole Sodium 40 mg 04/11/18 07:30 Protonix PO ACBREAKFAST [facility] Propranolol HCl 10 mg 04/10/18 22:30 Inderal PO BID [facility] Rifaximin 550 mg 04/11/18 09:00 Xifaxan PO BID [facility] Spironolactone 50 mg 04/11/18 09:00 Aldactone PO DAILY JAI Torsemide 40 mg 04/11/18 09:00 Demadex PO DAILY JAI Trolamine Salicylate 1 gm 04/10/18 22:05 Aspercreme 10% TOP Q1H PRN back pain Discontinued Medications Generic Name Dose Route Start Last Admin Trade Name Kaycee PRN Reason Stop Dose Admin Fentanyl 25 mcg 04/10/18 20:30 04/10/18 20:44 Sublimaze IVPUSH 04/10/18 20:31 25 mcg ONETIME ONE Administration - Re-Assessments/Exams Free Text/Narrative Re-Assessment/Exam: 04/10/18 18:56 Subtle vertebral fracture I fear may be missed with regular x-rays in this patient so thoracic and lumbar spine CT without contrast was obtained. 04/10/18 20:09 CT scan showed extensive arthritic changes, spurring and disc disease but nothing acute. Unfortunately the patient is in no condition to be discharged as he is not able to sit up or ambulate. Family cannot care for him in this situation. A CMP, CBC and ammonia level will be drawn and I talked to Dr. Nieto about admitting him for pain control, physical therapy evaluation and rehabilitation. 04/10/18 22:50 Ammonia level was normal, renal function was somewhat decreased over his baseline. He was admitted by the hospitalist service. Departure - Departure Time of Disposition: 21:45 Disposition: Admitted As Inpatient 67 Condition: Fair Clinical Impression: Cellulitis of right lower extremity, Weakness Contusion of back Qualifiers: Encounter type: initial encounter Laterality: unspecified laterality Qualified Code(s): S20.229A - Contusion of unspecified back wall of thorax, initial encounter Cirrhosis of liver Qualifiers: Hepatic cirrhosis type: other cirrhosis Qualified Code(s): K74.69 - Other cirrhosis of liver - Discharge Information - My Orders Last 24 Hours: My Active Orders 04/10/18 18:39 Lumbar Spine wo Cont [CT] Stat Thoracic Spine wo Cont [CT] Stat - Assessment/Plan Last 24 Hours: My Active Orders 04/10/18 18:39 Lumbar Spine wo Cont [CT] Stat Thoracic Spine wo Cont [CT] Stat
[2018-04-10] MEDS ORDERED: fentaNYL 100 MCG/2 ML SDV IVPUSH ONE (20:30)
--- NOTE | 2018-04-10 21:27 | PCM.HP ---
H&P History of Present Illness - General Date of Service: 04/10/18 Admit Problem/Dx: Admission Diagnosis/Problem Admission Diagnosis/Problem Back pain Source of Information: Patient, Family, Provider History Limitations: Reports: No Limitations - History of Present Illness Initial Comments - Free Text/Narative: Donny presents to the emergency room today with acute lower back pain after falling in the shower tonight. He reports that he lost his balance and fell backwards striking his back on a shower chair. He reports severe lower thoracic and upper lumbar pain. This is an achy pain that radiates throughout his lower back. No radiation down either leg. Pain is worse with any sort of movement and does get better after several minutes of rest. He did not take anything at home to help the pain prior to coming to the emergency room. He has received several doses of fentanyl with some improvement in his pain. He does not report any paresthesias or numbness and tingling in either leg. He did have a fall about 2 weeks ago which resulted in a contusion of the right lower leg. This was complicated by development of a hematoma and later cellulitis overlying the right lower leg in the area of an abrasion. This leg has been painful and he's had some difficulty with ambulation since that time. point of abdominal pain, nausea or shortness of breath. Workup in the emergency room included a CT scan of the thoracic and lumbar spine. There is no evidence for fracture. Labs revealed thrombocytopenia related to his chronic liver disease as well as an elevation in his creatinine to 2.1 with a baseline of 1.2-1.4. He will be admitted for pain management and physical therapy. Right Arm Pain Score (Numeric/FACES): 5 - Related Data Allergies/Adverse Reactions: Allergies Allergy/AdvReac Type Severity Reaction Status Date / Time amoxicillin [From Augmentin] Allergy Mild Abdominal Verified 12/24/17 15:59 Pain clavulanic acid Allergy Mild Abdominal Verified 12/24/17 15:59 [From Augmentin] Pain Home Medications: Home Meds Triamcinolone Acetonide [Triamcinolone Acetonide 0.1% Crm] 1 cm TOP BID [History] Spironolactone [Aldactone] 100 mg PO DAILY 09/01/15 [History] Albuterol Sulfate [Proair Hfa] 1 - 2 puff IH Q4HR PRN 03/24/17 [History] Ascorbic Acid 500 mg PO DAILY 03/24/17 [History] Escitalopram [Lexapro] 10 mg PO DAILY 03/24/17 [History] Multivit-Min/FA/Lycopene/Lut [Centrum Silver Tablet] 1 each PO DAILY 03/24/17 [ History] Propranolol [Inderal] 10 mg PO BID 03/24/17 [History] Lactulose [Chronulac] 10 gm PO BID #500 ml 04/19/17 [Rx] Rifaximin [Xifaxan] 1 tab PO BID 06/07/17 [History] Omeprazole Magnesium [Prilosec] 40 mg PO DAILY 12/24/17 [History] Torsemide [Demadex] 40 mg PO DAILY 04/08/18 [History] cephALEXin [Keflex] 500 mg PO TID 04/10/18 [History] Past Medical History HEENT History: Reports: Cataract Cardiovascular History: Reports: Hypertension Respiratory History: Reports: Bronchitis, Recurrent, Pneumonia, Recurrent Gastrointestinal History: Reports: Cirrhosis, Gastritis, GI Bleed, PUD Other Gastrointestinal History: fatty liver Genitourinary History: Reports: Urinary Incontinence Musculoskeletal History: Reports: Arthritis, Osteoarthritis Neurological History: Reports: CVA Dermatologic History: Reports: Other (See Below) Other Dermatologic History: rash back of neck cellulitis R lower leg - Infectious Disease History Infectious Disease History: Reports: Measles, Mumps - Past Surgical History HEENT Surgical History: Reports: Cataract Surgery Cardiovascular Surgical History: Reports: None Respiratory Surgical History: Reports: None GI Surgical History: Reports: Cholecystectomy, Colonoscopy, Hernia, Abdominal Male Surgical History: Reports: None Social & Family History - Family History Cardiac: Reports: Blood Clots/VTE/DVT Dermatologic: Reports: Eczema - Tobacco Use Smoking Status *Q: Never Smoker - Caffeine Use Caffeine Use: Reports: Coffee Other Caffeine Use: very little Caffeine Use Comment: rarely - Alcohol Use Alcohol Use History: No - Recreational Drug Use Recreational Drug Use: No - Living Situation & Occupation Living situation: Reports: Occupation: Retired (lives with Ron of 52 years in [place], [place]. has 6 children and 16 grandchildren.) H&P Review of Systems - Review of Systems: Review Of Systems: See Below Free Text/Narrative: A complete 12 point review of systems was obtained. Pertinent positives and negatives are noted in the history of present illness. All other systems were reviewed and were negative except as noted. Exam - Exam Exam: See Below - Vital Signs Vital Signs: Last Vital Signs Temp 36.5 C 04/10/18 20:26 Pulse 56 L 04/10/18 20:26 Resp 16 04/10/18 20:26 BP 100/42 L 04/10/18 20:26 Pulse Ox 95 04/10/18 20:26 Weight: 125.645 kg - Exam Quality Assessment: No: Supplemental Oxygen General: Alert, Oriented, Cooperative. No: Mild Distress HEENT: Conjunctiva Clear, Mucosa Moist & [place], Other (poor dentition, missing teeth). No: Scleral Icterus Neck: Supple, Trachea Midline. No: Lymphadenopathy, Thyromegaly Lungs: Clear to Auscultation, Normal Respiratory Effort Cardiovascular: Regular Rate, Regular Rhythm. No: Systolic Murmur GI/Abdominal Exam: Normal Bowel Sounds, Soft, No Distention, Tender (right side of abdomen) Back Exam: Normal Inspection, Decreased Range of Motion, Paraspinal Tenderness. No: Full Range of Motion, Vertebral Tenderness Extremities: Pedal Edema (right leg), Increased Warmth (right leg), Redness ( right leg) Skin: Warm, Dry Neuro Extensive - Mental Status: Alert, Oriented x3, Nl Response to Commands Neuro Extensive - Motor, Sensory, Reflexes: CN II-XII Intact. No: Dysarthria, Abnormal Motor, Tremor Psychiatric: Alert, Normal Affect - Patient Data Lab Results Last 24 hrs: Laboratory Results - last 24 hr 04/10/18 04/10/18 04/10/18 Range/Units :18 20:18 20:18 WBC 7.3 (4.5-11.0) K/uL RBC 3.55 L (4.30-5.90) M/uL Hgb 13.9 (12.0-15.0) g/dL Hct 38.8 L (40.0-54.0) % MCV 109 H (80-98) fL MCH 39 H (27-31) pg MCHC 36 (32-36) % Plt Count 89 L (150-400) K/uL Neut % (Auto) 77 H (36-66) % Lymph % (Auto) 12 L (24-44) % [place] % (Auto) 10 H (2-6) % Eos % (Auto) 2 (2-4) % Baso % (Auto) 0 (0-1) % Sodium 135 L (140-148) mmol/L Potassium 5.2 (3.6-5.2) mmol/L Chloride 101 (100-108) mmol/L Carbon Dioxide 30 (21-32) mmol/L Anion Gap 9.2 (5.0-14.0) mmol/L BUN 44 H D (7-18) mg/dL Creatinine 2.1 H (0.8-1.3) mg/dL Est Cr Clr Drug Dosing 29.46 mL/min Estimated GFR (MDRD) 31 L (>60) Glucose 113 H (74-106) mg/dL Calcium 8.1 L (8.5-10.1) mg/dL Total Bilirubin 4.2 H (0.2-1.0) mg/dL AST 55 H (15-37) U/L ALT 36 (12-78) U/L Alkaline Phosphatase 152 H (46-116) U/L Ammonia 12 (11-32) mmol/L Total Protein 5.8 L (6.4-8.2) g/dL Albumin 2.1 L (3.4-5.0) g/dL Globulin 3.7 H (2.3-3.5) g/dL Albumin/Globulin Ratio 0.6 L (1.2-2.2) Result Diagrams: 18 20:18 04/10/18 20:18 Imaging Impressions Last 24 hrs: CT thoracic and lumbar spine - images personally reviewed and radiologist's interpretation noted - no acute fracture or dislocation. No obvious hematoma. *Q Meaningful Use (ADM) - VTE *Q VTE Mechanical Contraindications *Q: Bilateral Lower Edema VTE Pharmacological Contraindications *Q: Thrombocytopenia - VTE Risk Assess *Q Each Risk Factor Represents 1 Point: Swollen Legs, Current, Obesity ( BMI > 25 kg/m2) Total Score 1 Point Risk Factors: 2 Each Risk Factor Represents 2 Points: None Total Score 2 Point Risk Factors: 0 Each Risk Factor Represents 3 Points: Age 75 Years or Greater Total Score 3 Point Risk Factors: 3 Each Risk Factor Represents 5 Points: None Total Score 5 Point Risk Factors: 0 Venous Thromboembolism Risk Factor Score *Q: 5 - Problem List (1) Contusion of lower back SNOMED Code(s): 686919051 ICD Code: S30.0XXA - CONTUSION OF LOWER BACK AND PELVIS, INITIAL ENCOUNTER Status: Acute Current Visit: Yes Qualifiers: Encounter type: initial encounter Qualified Code(s): S30.0XXA - Contusion of lower back and pelvis, initial encounter (2) Cellulitis of right lower extremity SNOMED Code(s): 178869723 ICD Code: L03.115 - CELLULITIS OF RIGHT LOWER LIMB Status: Acute Current Visit: Yes (3) Acute kidney injury SNOMED Code(s): 91904141 ICD Code: N17.9 - ACUTE KIDNEY FAILURE, UNSPECIFIED Status: Acute Current Visit: Yes (4) Cirrhosis of liver SNOMED Code(s): 43696800 ICD Code: K74.60 - UNSPECIFIED CIRRHOSIS OF LIVER Status: Chronic Current Visit: No Qualifiers: Hepatic cirrhosis type: other cirrhosis Qualified Code(s): K74.69 - Other cirrhosis of liver Problem List Initiated/Reviewed/Updated: Yes Orders Last 24hrs: Active Orders 24 hr Category Date Time Status Patient Status Manage Transfer [TRANSFER] Routine ADT 04/10/18 21:12 Ordered Lumbar Spine wo Cont [CT] Stat Exams 04/10/18 18:39 Taken Thoracic Spine wo Cont [CT] Stat Exams 04/10/18 18:39 Taken Resuscitation Status Routine Resus Stat 04/10/18 21:14 Ordered Assessment/Plan Comment:: ASSESSMENT AND PLAN - Fall with lower back contusion - no evidence for fracture on the CT scan. Patient is obese and is already limited with his mobility because of his right lower leg cellulitis. He is not safe for outpatient management as he can barely move around in bed at this time and is not able to ambulate. Given his obesity, pain from his lower extremity cellulitis as well as his chronic liver disease I suspect that this will take 2-3 days to improve before he is safe to go home if he is even able to go home and does not require subacute rehabilitation. -Acetaminophen and/or Aspercreme for mild pain -Oxycodone for moderate pain -Fentanyl for severe pain -Ice every 4 hours -Physical therapy when available -Increase activity as tolerated tomorrow Acute kidney injury - Creatinine of 2.1 today with a baseline of 1.2-1.4. I suspect he has intravascular volume depletion in the setting of chronic diuretic therapy. -1 L of IV fluids overnight -Recheck labs in the morning -Decreased diuretics as below Right leg cellulitis - Currently on cephalexin and his infection has been improving. He does have a fair amount of pain in the right leg though it's not as intense as the lower back at this time. Complicated by right lower extremity hematoma. -Continue cephalexin -Pain control Chronic idiopathic cirrhosis - Complicated by intermittent hepatic encephalopathy as well as thrombocytopenia and volume overload. No evidence for HE at this time. I think he's slightly hypovolemic at this time. -Continue lactulose and rifaximin -Decrease spironolactone to 50 mg daily -continue torsemide -Continue propranolol Maintenance issues - - DVT prophylaxis - Thrombocytopenia complicates pharmacological treatment and his lower extremity edema and hematoma complicated mechanical means, he will need to be ambulatory as soon as possible - GI prophylaxis - PPI - Nutrition - Low sodium - Servin catheter - Not indicated CODE STATUS - Full code Admission justification - This patient will be admitted for inpatient services and is medically appropriate meeting medical necessity for inpatient admission as outlined in my documentation. I reasonably expect the patient will require inpatient services that span a period time over 2 midnights. I reasonably expect this patient to be discharged or transferred within 96 hours after admission to the [facility]. Chronic medical problems as well as his acute infection in the right leg will make his stay longer than the normal admission for lower back pain and I suspect will take several days to improve before he is safe for outpatient management. Disposition - I would anticipate discharge to home versus possibly the senior living after the hospital stay Primary care physician - Dr Nallely Nieto M.D.
[2018-04-10] MEDS ORDERED: Ondansetron 4 MG Tab.DIS PO PRN (22:05)
[2018-04-10] MEDS ORDERED: Trolamine Salicylate/Aloe Vera 10% Crm 85 GM Tube TOP PRN (22:05)
[2018-04-10] MEDS ORDERED: Sodium Chloride 0.9% 1,000 ML IV SCH (22:05)
[2018-04-10] MEDS: Cephalexin 250 MG Cap PO SCH (23:30)
[2018-04-10] MEDS: Acetaminophen 325 MG Tab PO PRN (23:31)
[2018-04-10] MEDS: Propranolol 10 MG Tab PO SCH (23:32)
[2018-04-10] MEDS: oxyCODONE 5 MG Tab PO PRN (23:32)
[2018-04-11] MEDS: oxyCODONE 5 MG Tab PO PRN ×5 (03:17→22:34)
[2018-04-11] MEDS: Acetaminophen 325 MG Tab PO PRN ×5 (03:17→22:34)
[2018-04-11] MEDS ORDERED: Spironolactone 25 MG Tab PO SCH (09:00)
[2018-04-11] MEDS: Rifaximin 550 MG Tab PO SCH ×2 (10:25→20:30)
[2018-04-11] MEDS: Pantoprazole 40 MG Tab.CR PO SCH (10:25)
[2018-04-11] MEDS: Escitalopram 10 MG Tab PO SCH (10:25)
[2018-04-11] MEDS: Cephalexin 250 MG Cap PO SCH ×3 (10:25→20:30)
[2018-04-11] MEDS: Lactulose Soln 10 GM/15 ML 15 ML UD Cup PO SCH ×2 (10:26→20:30)
--- NOTE | 2018-04-11 10:50 | PCM.PN ---
- General Info Date of Service: 04/11/18 Functional Status: Reports: Pain Controlled, Tolerating Diet. Denies: Ambulating - Review of Systems General: Reports: Weakness. Denies: Fever Musculoskeletal: Reports: Back Pain Systems Review Comment:: There were no acute events overnight. Patient reports that his pain is slightly worse today than it was yesterday, especially trying to get into and out of bed. Once he is up he moves okay. Pain medications to help to calm down the pain some. Blood pressures on the low side of normal this morning and his diuretics and beta isaiah were held. Kidney function remains decreased from baseline despite IV fluids overnight. No fevers. Hemoglobin stable. - Patient Data Vitals - Most Recent: Last Vital Signs Temp 36.1 C 04/11/18 09:21 Pulse 70 04/11/18 09:21 Resp 18 04/11/18 07:10 BP 118/56 L 04/11/18 09:21 Pulse Ox 96 04/11/18 09:21 Weight - Most Recent: 125.645 kg I&O - Last 24 Hours: Intake & Output 04/10/18 04/11/18 04/11/18 22:59 06:59 14:59 Intake Total 2000 Output Total 350 125 Balance 1650 -125 Lab Results Last 24 Hours: Laboratory Results - last 24 hr 04/10/18 04/10/18 04/10/18 Range/Units 20:18 20:18 20:18 WBC 7.3 (4.5-11.0) K/uL RBC 3.55 L (4.30-5.90) M/uL Hgb 13.9 (12.0-15.0) g/dL Hct 38.8 L (40.0-54.0) % MCV 109 H (80-98) fL MCH 39 H (27-31) pg MCHC 36 (32-36) % Plt Count 89 L (150-400) K/uL Neut % (Auto) 77 H (36-66) % Lymph % (Auto) 12 L (24-44) % [place] % (Auto) 10 H (2-6) % Eos % (Auto) 2 (2-4) % Baso % (Auto) 0 (0-1) % Sodium 135 L (140-148) mmol/L Potassium 5.2 (3.6-5.2) mmol/L Chloride 101 (100-108) mmol/L Carbon Dioxide 30 (21-32) mmol/L Anion Gap 9.2 (5.0-14.0) mmol/L BUN 44 H D (7-18) mg/dL Creatinine 2.1 H (0.8-1.3) mg/dL Est Cr Clr Drug Dosing 29.46 mL/min Estimated GFR (MDRD) 31 L (>60) Glucose 113 H (74-106) mg/dL Calcium 8.1 L (8.5-10.1) mg/dL Total Bilirubin 4.2 H (0.2-1.0) mg/dL AST 55 H (15-37) U/L ALT 36 (12-78) U/L Alkaline Phosphatase 152 H (46-116) U/L Ammonia 12 (11-32) mmol/L Total Protein 5.8 L (6.4-8.2) g/dL Albumin 2.1 L (3.4-5.0) g/dL Globulin 3.7 H (2.3-3.5) g/dL Albumin/Globulin Ratio 0.6 L (1.2-2.2) 04/11/18 04/11/18 Range/Units 05:31 05:31 WBC 6.0 (4.5-11.0) K/uL RBC 3.52 L (4.30-5.90) M/uL Hgb 13.0 (12.0-15.0) g/dL Hct 39.2 L (40.0-54.0) % MCV 111 H (80-98) fL MCH 37 H (27-31) pg MCHC 33 (32-36) % Plt Count 76 L (150-400) K/uL Neut % (Auto) (36-66) % Lymph % (Auto) (24-44) % [place] % (Auto) (2-6) % Eos % (Auto) (2-4) % Baso % (Auto) (0-1) % Sodium 135 L (140-148) mmol/L Potassium 5.3 H (3.6-5.2) mmol/L Chloride 102 (100-108) mmol/L Carbon Dioxide 29 (21-32) mmol/L Anion Gap 9.3 (5.0-14.0) mmol/L BUN 46 H (7-18) mg/dL Creatinine 2.1 H (0.8-1.3) mg/dL Est Cr Clr Drug Dosing 29.46 mL/min Estimated GFR (MDRD) 31 L (>60) Glucose 80 (74-106) mg/dL Calcium 8.0 L (8.5-10.1) mg/dL Total Bilirubin (0.2-1.0) mg/dL AST (15-37) U/L ALT (12-78) U/L Alkaline Phosphatase (46-116) U/L Ammonia (11-32) mmol/L Total Protein (6.4-8.2) g/dL Albumin (3.4-5.0) g/dL Globulin (2.3-3.5) g/dL Albumin/Globulin Ratio (1.2-2.2) Med Orders - Current: Current Medications Acetaminophen (Tylenol) 650 mg PO Q4H PRN PRN Reason: Pain (Mild 1-3)/fever Last Admin: 04/11/18 07:36 Dose: 650 mg Cephalexin (Keflex) 500 mg PO TID [facility] Last Admin: 04/11/18 10:25 Dose: 500 mg Escitalopram Oxalate (Lexapro) 10 mg PO DAILY [facility] Last Admin: 04/11/18 10:25 Dose: 10 mg Fentanyl (Sublimaze) 25 mcg IVPUSH Q4H PRN PRN Reason: Pain (severe 7-10) Lactulose (Chronulac) 10 gm PO BID [facility] Last Admin: 04/11/18 10:26 Dose: 10 gm Ondansetron HCl (Zofran Odt) 4 mg PO Q6H PRN PRN Reason: Nausea able to take PO Oxycodone HCl (Oxycodone) 5 mg PO Q4H PRN PRN Reason: Pain (moderate 4-6) Last Admin: 04/11/18 07:36 Dose: 5 mg Pantoprazole Sodium (Protonix) 40 mg PO ACBREAKFAST [facility] Last Admin: 04/11/18 10:25 Dose: 40 mg Propranolol HCl (Inderal) 10 mg PO BID [facility] Last Admin: 04/10/18 23:32 Dose: Not Given Rifaximin (Xifaxan) 550 mg PO BID [facility] Last Admin: 04/11/18 10:25 Dose: 550 mg Spironolactone (Aldactone) 50 mg PO DAILY [facility] Torsemide (Demadex) 40 mg PO DAILY [facility] Trolamine Salicylate (Aspercreme 10%) 1 gm TOP Q1H PRN PRN Reason: back pain Discontinued Medications Fentanyl (Sublimaze) 25 mcg IVPUSH ONETIME ONE Stop: 04/10/18 20:31 Last Admin: 04/10/18 20:44 Dose: 25 mcg Sodium Chloride (Normal Saline) 1,000 mls @ 125 mls/hr IV ASDIRECTED [facility] Stop: 04/11/18 06:06 Last Admin: 04/10/18 23:40 Dose: 125 mls/hr - Exam Quality Assessment: No: Supplemental Oxygen General: Alert, Oriented, Cooperative, No Acute Distress Lungs: Normal Respiratory Effort GI/Abdominal Exam: Soft, No Distention Back Exam: No: Full Range of Motion Extremities: Pedal Edema (right ankle) Skin: Ecchymosis (right lower leg) Psy/Mental Status: Alert, Normal Affect - Problem List & Annotations (1) Contusion of lower back SNOMED Code(s): 055590527 Code(s): S30.0XXA - CONTUSION OF LOWER BACK AND PELVIS, INITIAL ENCOUNTER Status: Acute Current Visit: Yes Qualifiers: Encounter type: initial encounter Qualified Code(s): S30.0XXA - Contusion of lower back and pelvis, initial encounter (2) Cellulitis of right lower extremity SNOMED Code(s): 257507463 Code(s): L03.115 - CELLULITIS OF RIGHT LOWER LIMB Status: Acute Current Visit: Yes (3) Acute kidney injury SNOMED Code(s): 51055185 Code(s): N17.9 - ACUTE KIDNEY FAILURE, UNSPECIFIED Status: Acute Current Visit: Yes (4) Cirrhosis of liver SNOMED Code(s): 42733767 Code(s): K74.60 - UNSPECIFIED CIRRHOSIS OF LIVER Status: Chronic Current Visit: Yes Qualifiers: Hepatic cirrhosis type: other cirrhosis Qualified Code(s): K74.69 - Other cirrhosis of liver - Problem List Review Problem List Initiated/Reviewed/Updated: Yes - My Orders Last 24 Hours: My Active Orders 04/10/18 21:14 Resuscitation Status Routine 04/10/18 22:05 Patient Status [ADT] Routine Cooling Warming Measures [RC] ASDIRECTED Intake and Output [RC] QSHIFT Notify Provider Vital Signs [RC] ASDIRECTED Oxygen Therapy [RC] PRN Up With Assistance [RC] ASDIRECTED VTE/DVT Education [RC] Per Unit Routine Vital Signs [RC] Q4H Acetaminophen [Tylenol] 650 mg PO Q4H PRN Ondansetron [Zofran ODT] 4 mg PO Q6H PRN Trolamine Salicylate/Aloe Vera [Aspercreme 10%] 1 gm TOP Q1H PRN cephALEXin [Keflex] 500 mg PO TID fentaNYL [Sublimaze] 25 mcg IVPUSH Q4H PRN oxyCODONE 5 mg PO Q4H PRN Ice Pack [Ice Therapy] [OM.PC] Routine VTE Mechanical Contraindications [AST] Per Unit Routine VTE Pharmacological Contraindications [AST] Per Unit Routine 04/10/18 22:30 Propranolol [Inderal] 10 mg PO BID 04/11/18 07:30 Pantoprazole [ProTONIX] 40 mg PO ACBREAKFAST 04/11/18 09:00 Escitalopram [Lexapro] 10 mg PO DAILY Lactulose [Chronulac] 10 gm PO BID Rifaximin [Xifaxan] 550 mg PO BID Spironolactone [Aldactone] 50 mg PO DAILY Torsemide [Demadex] 40 mg PO DAILY 04/11/18 10:49 Cooling Warming Measures [RC] ASDIRECTED Heat Therapy [OM.PC] Routine 04/12/18 05:00 BASIC METABOLIC PANEL,BMP [CHEM] Timed CBC W/O DIFF,HEMOGRAM [HEME] Timed (1) 04/12/18 07:00 PT Evaluation and Treatment [CONS] Routine - Plan Plan:: ASSESSMENT AND PLAN - Fall with lower back contusion - no evidence for fracture on the CT scan. Pain is a little bit worse today and mobility remains limited. He continues to be hopeful that things will improve fairly quickly and he'll be able to go home after the hospital stay. -Acetaminophen and/or Aspercreme for mild pain -Oxycodone for moderate pain -Fentanyl for severe pain -Ice every 4 hours -Alternate with heating pad in between ice treatments -Physical therapy tomorrow -Increase activity as tolerated tomorrow Acute kidney injury - Creatinine of 2.1 today with a baseline of 1.2-1.4. Level stable compared to yesterday, suspect intravascular volume depletion. -Hold diuretics today -Recheck labs in the morning Right leg cellulitis - Currently on cephalexin and his infection has been improving. He does have a fair amount of pain in the right leg though it's not as intense as the lower back at this time. Complicated by right lower extremity hematoma. -Continue cephalexin -Pain control Chronic idiopathic cirrhosis - Complicated by intermittent hepatic encephalopathy as well as thrombocytopenia and volume overload. No evidence for HE at this time. Still seems slightly hypovolemic at least intravascularly. Diuretics will be held today. -Continue lactulose and rifaximin -Decrease spironolactone to 50 mg daily -continue torsemide -Continue propranolol Maintenance issues - - DVT prophylaxis - Thrombocytopenia complicates pharmacological treatment and his lower extremity edema and hematoma complicated mechanical means, he will need to be ambulatory as soon as possible - GI prophylaxis - PPI - Nutrition - Low sodium Disposition - I would anticipate discharge to home versus possibly the fdc after the hospital stay Primary care physician - Dr Nallely Nieto M.D.
[2018-04-11] MEDS ORDERED: Acetaminophen 325 MG Tab PO PRN (16:51)
[2018-04-11] MEDS ORDERED: Acetaminophen 325 MG Tab ONE (17:05)
[2018-04-11] MEDS: fentaNYL 100 MCG/2 ML SDV IVPUSH PRN (18:42)
[2018-04-12] MEDS: Acetaminophen 325 MG Tab PO PRN ×3 (02:40→12:04)
[2018-04-12] MEDS: oxyCODONE 5 MG Tab PO PRN ×5 (02:41→20:48)
[2018-04-12] MEDS: Pantoprazole 40 MG Tab.CR PO SCH (07:39)
[2018-04-12] MEDS: Cephalexin 250 MG Cap PO SCH ×3 (08:31→20:48)
[2018-04-12] MEDS: Lactulose Soln 10 GM/15 ML 15 ML UD Cup PO SCH ×2 (08:31→20:48)
[2018-04-12] MEDS: Escitalopram 10 MG Tab PO SCH (08:31)
[2018-04-12] MEDS: Rifaximin 550 MG Tab PO SCH ×2 (08:31→20:48)
[2018-04-12] MEDS ORDERED: Sodium Phosphate,Monobasic/Sodium Phosphate,Dibasic Enema 133 ML Bottle RECTAL PRN (16:15)
[2018-04-12] MEDS ORDERED: Bisacodyl 10 MG Supp RECTAL ONE (16:15)
--- NOTE | 2018-04-12 17:56 | PCM.PN ---
- General Info Date of Service: 04/12/18 Subjective Update: Mr. Meeks is a 78-year-old gentleman with back pain secondary to a soft tissue injury from a fall. He continues to experience pain and has marked difficulty with any type of movement. He is willing to accept mcc placement. - Review of Systems General: Reports: Weakness. Denies: Fever, Chills Pulmonary: Reports: No Symptoms Cardiovascular: Reports: No Symptoms Gastrointestinal: Reports: No Symptoms Musculoskeletal: Reports: Back Pain - Patient Data Vitals - Most Recent: Last Vital Signs Temp 97.6 F 04/12/18 15:42 Pulse 59 L 04/12/18 15:42 Resp 14 04/12/18 15:42 BP 104/52 L 04/12/18 15:42 Pulse Ox 94 L 04/12/18 15:42 Weight - Most Recent: 276 lb 15.997 oz I&O - Last 24 Hours: Intake & Output 04/12/18 04/12/18 04/12/18 06:59 14:59 22:59 Output Total 200 300 Balance -200 -300 Lab Results Last 24 Hours: Laboratory Results - last 24 hr 04/12/18 04/12/18 Range/Units 05:39 05:39 WBC 7.4 (4.5-11.0) K/uL RBC 3.53 L (4.30-5.90) M/uL Hgb 13.2 (12.0-15.0) g/dL Hct 38.9 L (40.0-54.0) % MCV 110 H (80-98) fL MCH 37 H (27-31) pg MCHC 34 (32-36) % Plt Count 83 L (150-400) K/uL Neut % (Auto) 64 (36-66) % Lymph % (Auto) 15 L (24-44) % [place] % (Auto) 15 H (2-6) % Eos % (Auto) 6 H (2-4) % Baso % (Auto) 0 (0-1) % Sodium 132 L (140-148) mmol/L Potassium 5.0 (3.6-5.2) mmol/L Chloride 100 (100-108) mmol/L Carbon Dioxide 30 (21-32) mmol/L Anion Gap 7.0 (5.0-14.0) mmol/L BUN 52 H (7-18) mg/dL Creatinine 2.3 H (0.8-1.3) mg/dL Est Cr Clr Drug Dosing 26.90 mL/min Estimated GFR (MDRD) 28 L (>60) Glucose 101 (74-106) mg/dL Calcium 8.2 L (8.5-10.1) mg/dL Med Orders - Current: Current Medications Cephalexin (Keflex) 500 mg PO TID [facility] Last Admin: 04/12/18 16:10 Dose: 500 mg Escitalopram Oxalate (Lexapro) 10 mg PO DAILY [facility] Last Admin: 04/12/18 08:31 Dose: 10 mg Fentanyl (Sublimaze) 25 mcg IVPUSH Q4H PRN PRN Reason: Pain (severe 7-10) Last Admin: 04/11/18 18:42 Dose: 25 mcg Lactulose (Chronulac) 10 gm PO BID [facility] Last Admin: 04/12/18 08:31 Dose: 10 gm Ondansetron HCl (Zofran Odt) 4 mg PO Q6H PRN PRN Reason: Nausea able to take PO Oxycodone HCl (Oxycodone) 5 mg PO Q4H PRN PRN Reason: Pain (moderate 4-6) Last Admin: 04/12/18 16:09 Dose: 5 mg Pantoprazole Sodium (Protonix) 40 mg PO ACBREAKFAST [facility] Last Admin: 04/12/18 07:39 Dose: 40 mg Propranolol HCl (Inderal) 10 mg PO BID [facility] Last Admin: 04/10/18 23:32 Dose: Not Given Rifaximin (Xifaxan) 550 mg PO BID [facility] Last Admin: 04/12/18 08:31 Dose: 550 mg Sodium Biphosphate/Sodium Phosphate (Fleet Enema) 133 ml RECTAL ONETIME PRN PRN Reason: Constipation Spironolactone (Aldactone) 50 mg PO DAILY [facility] Torsemide (Demadex) 40 mg PO DAILY [facility] Trolamine Salicylate (Aspercreme 10%) 1 gm TOP Q1H PRN PRN Reason: back pain Discontinued Medications Acetaminophen (Tylenol) 650 mg PO Q4H PRN PRN Reason: Pain (Mild 1-3)/fever Last Admin: 04/12/18 12:04 Dose: 650 mg Acetaminophen (Tylenol) 650 mg PO Q4H PRN PRN Reason: temp greater than 100.5 Acetaminophen (Tylenol) Confirm Administered Dose 650 mg .ROUTE .STK-MED ONE Stop: 04/11/18 17:06 Last Admin: 04/11/18 18:09 Dose: Not Given Bisacodyl (Dulcolax) 10 mg RECTAL ONETIME ONE Stop: 04/12/18 16:16 Fentanyl (Sublimaze) 25 mcg IVPUSH ONETIME ONE Stop: 04/10/18 20:31 Last Admin: 04/10/18 20:44 Dose: 25 mcg Sodium Chloride (Normal Saline) 1,000 mls @ 125 mls/hr IV ASDIRECTED [facility] Stop: 04/11/18 06:06 Last Admin: 04/10/18 23:40 Dose: 125 mls/hr Oxycodone HCl (Oxycodone) 5 mg PO Q4H PRN PRN Reason: Pain (moderate 4-6) Last Admin: 04/11/18 12:24 Dose: 5 mg - Exam Quality Assessment: DVT Prophylaxis General: Alert, Oriented, Cooperative, Moderate Distress Lungs: Clear to Auscultation, Normal Respiratory Effort Cardiovascular: Regular Rate, No Murmurs, Irregular Rhythm GI/Abdominal Exam: Soft, Non-Tender, No Organomegaly, No Distention Back Exam: Paraspinal Tenderness - Problem List Review Problem List Initiated/Reviewed/Updated: Yes - My Orders Last 24 Hours: My Active Orders 04/12/18 16:15 Na Phos,M-B/Na Phos,DI-B [Fleet Enema] 133 ml RECTAL ONETIME PRN 04/13/18 05:00 BASIC METABOLIC PANEL,BMP [CHEM] Timed - Plan Plan:: ASSESSMENT AND PLAN - Fall with lower back contusion - no evidence for fracture on the CT scan. Pain continues and mobility remains limited. -Acetaminophen and/or Aspercreme for mild pain -Oxycodone for moderate pain -Fentanyl for severe pain -Ice every 4 hours -Alternate with heating pad in between ice treatments -Physical therapy -Increase activity as tolerated Acute kidney injury - Creatinine of 2.3 today with a baseline of 1.2-1.4. Level stable compared to yesterday, suspect intravascular volume depletion. -Hold diuretics -Recheck labs in the morning Right leg cellulitis - Currently on cephalexin and his infection has been improving. He does have a fair amount of pain in the right leg though it's not as intense as the lower back at this time. Complicated by right lower extremity hematoma. -Continue cephalexin -Pain control Chronic idiopathic cirrhosis - Complicated by intermittent hepatic encephalopathy as well as thrombocytopenia and volume overload. No evidence for HE at this time. Still seems slightly hypovolemic at least intravascularly. Diuretics will be held today. -Continue lactulose and rifaximin -Decrease spironolactone to 50 mg daily -continue torsemide -Continue propranolol Constipation -Dulcolax suppository -Fleet enema if no results from suppository Maintenance issues - - DVT prophylaxis - Thrombocytopenia complicates pharmacological treatment and his lower extremity edema and hematoma complicated mechanical means, he will need to be ambulatory as soon as possible - GI prophylaxis - PPI - Nutrition - Low sodium Disposition - I would anticipate discharge to home versus possibly the [facility] after the hospital stay Primary care physician - Dr Browning
[2018-04-12] MEDS: fentaNYL 100 MCG/2 ML SDV IVPUSH PRN (22:09)
[2018-04-13] MEDS: oxyCODONE 5 MG Tab PO PRN ×4 (01:12→14:35)
[2018-04-13] MEDS: fentaNYL 100 MCG/2 ML SDV IVPUSH PRN (01:57)
[2018-04-13] MEDS: LORazepam 2 MG/ML SDV IVPUSH PRN ×2 (01:57→05:10)
[2018-04-13] MEDS: Lactulose Soln 10 GM/15 ML 15 ML UD Cup PO SCH ×4 (09:14→20:57)
[2018-04-13] MEDS: Cephalexin 250 MG Cap PO SCH ×3 (09:15→20:57)
[2018-04-13] MEDS: Escitalopram 10 MG Tab PO SCH (09:15)
[2018-04-13] MEDS: Pantoprazole 40 MG Tab.CR PO SCH (09:15)
[2018-04-13] MEDS: Rifaximin 550 MG Tab PO SCH ×2 (09:15→21:02)
--- NOTE | 2018-04-13 11:07 | PCM.PN ---
- General Info Date of Service: 04/13/18 Subjective Update: This patient has been more lethargic and confused today, also noted to be more tremulous. He has known hepatic cirrhosis and previous episodes of hepatic encephalopathy. He has been taking his lactulose since admission. Ammonia level increased from admission but not significantly elevated. Liver enzymes have increased from admission including a bilirubin of up to greater than 6. He has been afebrile with no evidence of underlying infection. - Review of Systems General: Reports: Weakness. Denies: Fever, Chills Pulmonary: Reports: No Symptoms Cardiovascular: Reports: No Symptoms Gastrointestinal: Reports: No Symptoms Musculoskeletal: Reports: Back Pain - Patient Data Vitals - Most Recent: Last Vital Signs Temp 98.8 F 04/13/18 07:00 Pulse 83 04/13/18 07:00 Resp 18 04/13/18 07:00 BP 103/45 L 04/13/18 07:00 Pulse Ox 93 L 04/13/18 07:00 Weight - Most Recent: 276 lb 15.997 oz I&O - Last 24 Hours: Intake & Output 04/12/18 04/13/18 04/13/18 22:59 06:59 14:59 Intake Total 240 Output Total 350 100 335 Balance -350 -100 -95 Lab Results Last 24 Hours: Laboratory Results - last 24 hr 04/13/18 04/13/18 04/13/18 Range/Units 04:50 09:20 09:22 Sodium 131 L (140-148) mmol/L Potassium 5.4 H (3.6-5.2) mmol/L Chloride 97 L (100-108) mmol/L Carbon Dioxide 31 (21-32) mmol/L Anion Gap 8.4 (5.0-14.0) mmol/L BUN 52 H (7-18) mg/dL Creatinine 2.0 H (0.8-1.3) mg/dL Est Cr Clr Drug Dosing 30.83 mL/min Estimated GFR (MDRD) 33 L (>60) Glucose 93 (74-106) mg/dL Calcium 8.5 (8.5-10.1) mg/dL Total Bilirubin 6.2 H (0.2-1.0) mg/dL Direct Bilirubin 1.80 H (0.0-0.2) mg/dL Indirect Bilirubin 4.40 AST 58 H (15-37) U/L ALT 32 (12-78) U/L Alkaline Phosphatase 140 H (46-116) U/L Ammonia 27 (11-32) mmol/L Total Protein 5.8 L (6.4-8.2) g/dL Albumin 2.2 L (3.4-5.0) g/dL Globulin 3.6 H (2.3-3.5) g/dL Albumin/Globulin Ratio 0.6 L (1.2-2.2) Med Orders - Current: Current Medications Cephalexin (Keflex) 500 mg PO TID [facility] Last Admin: 04/13/18 09:15 Dose: 500 mg Escitalopram Oxalate (Lexapro) 10 mg PO DAILY [facility] Last Admin: 04/13/18 09:15 Dose: 10 mg Fentanyl (Sublimaze) 25 mcg IVPUSH Q4H PRN PRN Reason: Pain (severe 7-10) Last Admin: 04/13/18 01:57 Dose: 25 mcg Lactulose (Chronulac) 20 gm PO TID [facility] Lorazepam (Ativan) 0.5 - 1 mg IVPUSH Q2H PRN PRN Reason: Anxiety Last Admin: 04/13/18 05:10 Dose: 1 mg Ondansetron HCl (Zofran Odt) 4 mg PO Q6H PRN PRN Reason: Nausea able to take PO Oxycodone HCl (Oxycodone) 5 mg PO Q4H PRN PRN Reason: Pain (moderate 4-6) Last Admin: 04/13/18 09:17 Dose: 5 mg Pantoprazole Sodium (Protonix) 40 mg PO ACBREAKFAST [facility] Last Admin: 04/13/18 09:15 Dose: 40 mg Propranolol HCl (Inderal) 10 mg PO BID [facility] Last Admin: 04/10/18 23:32 Dose: Not Given Rifaximin (Xifaxan) 550 mg PO BID [facility] Last Admin: 04/13/18 09:15 Dose: 550 mg Sodium Biphosphate/Sodium Phosphate (Fleet Enema) 133 ml RECTAL ONETIME PRN PRN Reason: Constipation Torsemide (Demadex) 40 mg PO DAILY [facility] Trolamine Salicylate (Aspercreme 10%) 1 gm TOP Q1H PRN PRN Reason: back pain Discontinued Medications Acetaminophen (Tylenol) 650 mg PO Q4H PRN PRN Reason: Pain (Mild 1-3)/fever Last Admin: 04/12/18 12:04 Dose: 650 mg Acetaminophen (Tylenol) 650 mg PO Q4H PRN PRN Reason: temp greater than 100.5 Acetaminophen (Tylenol) Confirm Administered Dose 650 mg .ROUTE .STK-MED ONE Stop: 04/11/18 17:06 Last Admin: 04/11/18 18:09 Dose: Not Given Bisacodyl (Dulcolax) 10 mg RECTAL ONETIME ONE Stop: 04/12/18 16:16 Last Admin: 04/12/18 18:12 Dose: 10 mg Fentanyl (Sublimaze) 25 mcg IVPUSH ONETIME ONE Stop: 04/10/18 20:31 Last Admin: 04/10/18 20:44 Dose: 25 mcg Sodium Chloride (Normal Saline) 1,000 mls @ 125 mls/hr IV ASDIRECTED [facility] Stop: 04/11/18 06:06 Last Admin: 04/10/18 23:40 Dose: 125 mls/hr Lactulose (Chronulac) 10 gm PO BID [facility] Last Admin: 04/13/18 09:14 Dose: 10 gm Oxycodone HCl (Oxycodone) 5 mg PO Q4H PRN PRN Reason: Pain (moderate 4-6) Last Admin: 04/11/18 12:24 Dose: 5 mg Spironolactone (Aldactone) 50 mg PO DAILY [facility] - Exam Quality Assessment: DVT Prophylaxis General: Alert, Cooperative, Lethargic, Other (Confused) Lungs: Clear to Auscultation, Normal Respiratory Effort Cardiovascular: Regular Rate, Regular Rhythm, No Murmurs GI/Abdominal Exam: Soft, Non-Tender, No Organomegaly, No Distention Extremities: Leg Pain, Other (Extensive ecchymosis right leg) Skin: Warm, Dry - Problem List Review Problem List Initiated/Reviewed/Updated: Yes - My Orders Last 24 Hours: My Active Orders 04/12/18 16:15 Na Phos,M-B/Na Phos,DI-B [Fleet Enema] 133 ml RECTAL ONETIME PRN 04/13/18 11:01 VL Duplex Lwr Ext Veins Ltd Rt [US] Urgent 04/13/18 12:00 Lactulose [Chronulac] 20 gm PO TID 04/14/18 05:00 CBC WITH AUTO DIFF [HEME] Timed COMPREHENSIVE METABOLIC PN,CMP [CHEM] Timed 04/14/18 05:11 AMMONIA VENOUS [CHEM] AM - Plan Plan:: ASSESSMENT AND PLAN - Fall with lower back contusion - no evidence for fracture on the CT scan. Pain continues and mobility remains limited. -Acetaminophen and/or Aspercreme for mild pain -Oxycodone for moderate pain -Ice every 4 hours -Alternate with heating pad in between ice treatments -Physical therapy -Increase activity as tolerated Acute kidney injury - Creatinine of 2.3 today with a baseline of 1.2-1.4. Level stable compared to yesterday, suspect intravascular volume depletion. -Hold diuretics -Recheck labs in the morning Hepatic encephalopathy-likely cause of lethargy and confusion, no evidence of underlying infection -Increase lactulose to 20 mg 3 times daily Right leg cellulitis - Currently on cephalexin and his infection has been improving. He does have a fair amount of pain in the right leg though it's not as intense as the lower back at this time. Complicated by right lower extremity hematoma. -Continue cephalexin -Pain control Chronic idiopathic cirrhosis - Complicated by intermittent hepatic encephalopathy as well as thrombocytopenia and volume overload. No evidence for HE at this time. Still seems slightly hypovolemic at least intravascularly. Diuretics will be held today. -Continue lactulose and rifaximin -continue torsemide -Continue propranolol Constipation -Dulcolax suppository -Fleet enema if no results from suppository Maintenance issues - - DVT prophylaxis - Thrombocytopenia complicates pharmacological treatment and his lower extremity edema and hematoma complicated mechanical means, he will need to be ambulatory as soon as possible - GI prophylaxis - PPI - Nutrition - Low sodium Disposition - I would anticipate discharge to home versus possibly the long-term after the hospital stay Primary care physician - Dr Browning
--- NOTE | 2018-04-13 12:24 | US ---
VL Duplex Lwr Ext Veins Ltd Rt INDICATION: Edema, injury FINDINGS: Ultrasound examination of the lower extremity using Doppler and compressive technique demon strates that the common femoral, femoral, and popliteal veins are patent, and negative for thrombus. The calf veins were segmentally visualized and are negative where seen. IMPRESSION: Negative for deep venous thrombosis.
[2018-04-13] MEDS: Torsemide 20 MG Tab PO SCH (14:36)
[2018-04-13] MEDS: Propranolol 10 MG Tab PO SCH ×2 (14:36→20:58)
[2018-04-14] MEDS: oxyCODONE 5 MG Tab PO PRN ×2 (06:37→11:58)
[2018-04-14] MEDS: Lactulose Soln 10 GM/15 ML 15 ML UD Cup PO SCH (08:11)
[2018-04-14] MEDS: Pantoprazole 40 MG Tab.CR PO SCH (08:11)
[2018-04-14] MEDS: Propranolol 10 MG Tab PO SCH (08:12)
[2018-04-14] MEDS: Torsemide 20 MG Tab PO SCH (08:12)
[2018-04-14] MEDS: Cephalexin 250 MG Cap PO SCH (08:13)
[2018-04-14] MEDS: Escitalopram 10 MG Tab PO SCH (08:13)
[2018-04-14] MEDS: Rifaximin 550 MG Tab PO SCH (08:13)
[2018-04-14] MEDS ORDERED: Sodium Polystyrene Sulfonate 15 GM/60 ML Susp 60 ML Bot PO ONE (11:00)
[2018-04-14 11:42] VITALS: BP 130/57
--- NOTE | 2018-04-14 12:32 | PCM.DCSUM1 ---
Discharge Summary - Hospital Course Brief History: This patient is a 78-year-old gentleman who was admitted through the emergency department with severe back pain that resulted from a fall in his shower. - Discharge Data Discharge Date: 04/14/18 Discharge Disposition: Home, Self-Care 01 Preliminary Cause of *Q: Sepsis & Multi System Organ Failure Condition: Fair - Discharge Diagnosis/Problem(s) (1) Contusion of lower back SNOMED Code(s): 455827691 ICD Code: S30.0XXA - CONTUSION OF LOWER BACK AND PELVIS, INITIAL ENCOUNTER Status: Acute Current Visit: Yes Qualifiers: Encounter type: initial encounter Qualified Code(s): S30.0XXA - Contusion of lower back and pelvis, initial encounter (2) Cellulitis of right lower extremity SNOMED Code(s): 294321505 ICD Code: L03.115 - CELLULITIS OF RIGHT LOWER LIMB Status: Acute Current Visit: Yes (3) Acute kidney injury SNOMED Code(s): 99551949 ICD Code: N17.9 - ACUTE KIDNEY FAILURE, UNSPECIFIED Status: Acute Current Visit: Yes (4) Weakness SNOMED Code(s): 86243307 ICD Code: R53.1 - WEAKNESS Status: Acute Current Visit: Yes (5) Cirrhosis of liver SNOMED Code(s): 19586861 ICD Code: K74.60 - UNSPECIFIED CIRRHOSIS OF LIVER Status: Chronic Current Visit: Yes Qualifiers: Hepatic cirrhosis type: other cirrhosis Qualified Code(s): K74.69 - Other cirrhosis of liver (6) Hepatic encephalopathy SNOMED Code(s): 84225129 ICD Code: K72.90 - HEPATIC FAILURE, UNSPECIFIED WITHOUT COMA Status: Chronic Priority: High Current Visit: No - Patient Summary/Data Consults: Consultations 04/12/18 16:58 PT Evaluation and Treatment [CONS] Routine Please Evaluate and Treat. PT Reason for Consult: strenthening Pending Discharge: Yes Discharge Disposition: Halfway Facility Special Instructions: falls at home, back pain This query below is only for informational purposes and is not editable. Admission Diagnosis/Problem: Back pain Hospital Course: Donny presents to the emergency room with acute lower back pain after falling in the shower. He reports that he lost his balance and fell backwards striking his back on a shower chair. He reports severe lower thoracic and upper lumbar pain. This is an achy pain that radiates throughout his lower back. No radiation down either leg. Pain is worse with any sort of movement and does get better after several minutes of rest. He did not take anything at home to help the pain prior to coming to the emergency room. He has received several doses of fentanyl with some improvement in his pain. He does not report any paresthesias or numbness and tingling in either leg. He did have a fall about 2 weeks ago which resulted in a contusion of the right lower leg. This was complicated by development of a hematoma and later cellulitis overlying the right lower leg in the area of an abrasion. This leg has been painful and he's had some difficulty with ambulation since that time. Workup in the emergency room included a CT scan of the thoracic and lumbar spine. There is no evidence for fracture. Labs revealed thrombocytopenia related to his chronic liver disease as well as an elevation in his creatinine to 2.1 with a baseline of 1.2- 1.4. He will be admitted for pain management and physical therapy. He received IV fluids initially for hydration and management of renal insufficiency, by the time of discharge renal function and return to baseline. He does have known elevation in liver studies related to his underlying cirrhosis. He was continued on oral antibiotic therapy for management of cellulitis of his right lower extremity. He was seen daily by physical therapy for work on transfers and ambulation with his soft tissue injury to the lower back. Hospital course was complicated by involvement of hepatic encephalopathy which improved after his dose of lactulose was increased. He was also noted to have mild hyperkalemia prior to discharge and was given a dose of Kayexalate on the day of discharge. Follow-up potassium level will be obtained in 2 days. He will be discharge the custodial because of marked weakness for restorative physical therapy and occupational therapy. He will be on a 2 g sodium diet and activity will be as tolerated. - Patient Instructions Diet: Low Sodium Activity: As Tolerated Other/Special Instructions: Daily physical therapy and occupational therapy while at the custodial. Follow-up lab on April 16; potassium - Discharge Plan *PRESCRIPTION DRUG MONITORING PROGRAM REVIEWED*: Not Applicable *COPY OF PRESCRIPTION DRUG MONITORING REPORT IN PATIENT STEPHEN: Not Applicable Prescriptions/Med Rec: oxyCODONE 5 mg PO Q4H PRN #30 tablet PRN Reason: Pain (Moderate 4-6) Home Medications: Home Meds Triamcinolone Acetonide [Triamcinolone Acetonide 0.1% Crm] 1 cm TOP BID [History] Albuterol Sulfate [Proair Hfa] 1 - 2 puff IH Q4HR PRN 03/24/17 [History] Ascorbic Acid 500 mg PO DAILY 03/24/17 [History] Escitalopram [Lexapro] 10 mg PO DAILY 03/24/17 [History] Multivit-Min/FA/Lycopene/Lut [Centrum Silver Tablet] 1 each PO DAILY 03/24/17 [ History] Propranolol [Inderal] 10 mg PO BID 03/24/17 [History] Rifaximin [Xifaxan] 1 tab PO BID 06/07/17 [History] Omeprazole Magnesium [Prilosec] 40 mg PO DAILY 12/24/17 [History] Torsemide [Demadex] 40 mg PO DAILY 04/08/18 [History] Lactulose [Chronulac] 20 gm PO BID cup 04/14/18 [Rx] oxyCODONE 5 mg PO Q4H PRN #30 tablet 04/14/18 [Rx] Referrals: Herb Browning MD [Primary Care Provider] - - Discharge Summary/Plan Comment DC Time >30 min.: No - Patient Data Vitals - Most Recent: Last Vital Signs Temp 97.5 F 04/14/18 11:40 Pulse 64 04/14/18 11:40 Resp 16 04/14/18 11:40 BP 130/57 L 04/14/18 11:40 Pulse Ox 88 L 04/14/18 11:40 Weight - Most Recent: 276 lb 15.997 oz I&O - Last 24 hours: Intake & Output 04/13/18 04/14/18 04/14/18 22:59 06:59 14:59 Intake Total 500 Output Total 200 Balance -200 500 Lab Results - Last 24 hrs: Laboratory Results - last 24 hr 04/14/18 04/14/18 04/14/18 Range/Units 06:00 06:00 06:00 WBC 7.7 (4.5-11.0) K/uL RBC 3.20 L (4.30-5.90) M/uL Hgb 12.0 (12.0-15.0) g/dL Hct 35.2 L (40.0-54.0) % MCV 110 H (80-98) fL MCH 38 H (27-31) pg MCHC 34 (32-36) % Plt Count 100 L (150-400) K/uL Neut % (Auto) 66 (36-66) % Lymph % (Auto) 12 L (24-44) % Coke % (Auto) 18 H (2-6) % Eos % (Auto) 3 (2-4) % Baso % (Auto) 0 (0-1) % Sodium 130 L (140-148) mmol/L Potassium 5.5 H (3.6-5.2) mmol/L Chloride 97 L (100-108) mmol/L Carbon Dioxide 31 (21-32) mmol/L Anion Gap 7.5 (5.0-14.0) mmol/L BUN 52 H (7-18) mg/dL Creatinine 1.8 H (0.8-1.3) mg/dL Est Cr Clr Drug Dosing 34.25 mL/min Estimated GFR (MDRD) 37 L (>60) Glucose 102 (74-106) mg/dL Calcium 8.3 L (8.5-10.1) mg/dL Total Bilirubin 6.5 H (0.2-1.0) mg/dL AST 62 H (15-37) U/L ALT 34 (12-78) U/L Alkaline Phosphatase 137 H (46-116) U/L Ammonia 11 (11-32) mmol/L Total Protein 5.7 L (6.4-8.2) g/dL Albumin 2.2 L (3.4-5.0) g/dL Globulin 3.5 (2.3-3.5) g/dL Albumin/Globulin Ratio 0.6 L (1.2-2.2) Med Orders - Current: Current Medications Cephalexin (Keflex) 500 mg PO TID [facility] Last Admin: 04/14/18 08:13 Dose: 500 mg Escitalopram Oxalate (Lexapro) 10 mg PO DAILY [facility] Last Admin: 04/14/18 08:13 Dose: 10 mg Lactulose (Chronulac) 20 gm PO TID [facility] Last Admin: 04/14/18 08:11 Dose: 20 gm Ondansetron HCl (Zofran Odt) 4 mg PO Q6H PRN PRN Reason: Nausea able to take PO Oxycodone HCl (Oxycodone) 5 mg PO Q4H PRN PRN Reason: Pain (moderate 4-6) Last Admin: 04/14/18 11:58 Dose: 5 mg Pantoprazole Sodium (Protonix) 40 mg PO ACBREAKFAST [facility] Last Admin: 04/14/18 08:11 Dose: 40 mg Propranolol HCl (Inderal) 10 mg PO BID [facility] Last Admin: 04/14/18 08:12 Dose: 10 mg Rifaximin (Xifaxan) 550 mg PO BID [facility] Last Admin: 04/14/18 08:13 Dose: 550 mg Sodium Biphosphate/Sodium Phosphate (Fleet Enema) 133 ml RECTAL ONETIME PRN PRN Reason: Constipation Torsemide (Demadex) 40 mg PO DAILY [facility] Last Admin: 04/14/18 08:12 Dose: 40 mg Trolamine Salicylate (Aspercreme 10%) 1 gm TOP Q1H PRN PRN Reason: back pain Discontinued Medications Acetaminophen (Tylenol) 650 mg PO Q4H PRN PRN Reason: Pain (Mild 1-3)/fever Last Admin: 04/12/18 12:04 Dose: 650 mg Acetaminophen (Tylenol) 650 mg PO Q4H PRN PRN Reason: temp greater than 100.5 Acetaminophen (Tylenol) Confirm Administered Dose 650 mg .ROUTE .STK-MED ONE Stop: 04/11/18 17:06 Last Admin: 04/11/18 18:09 Dose: Not Given Bisacodyl (Dulcolax) 10 mg RECTAL ONETIME ONE Stop: 04/12/18 16:16 Last Admin: 04/12/18 18:12 Dose: 10 mg Fentanyl (Sublimaze) 25 mcg IVPUSH ONETIME ONE Stop: 04/10/18 20:31 Last Admin: 04/10/18 20:44 Dose: 25 mcg Fentanyl (Sublimaze) 25 mcg IVPUSH Q4H PRN PRN Reason: Pain (severe 7-10) Last Admin: 04/13/18 01:57 Dose: 25 mcg Sodium Chloride (Normal Saline) 1,000 mls @ 125 mls/hr IV ASDIRECTED [facility] Stop: 04/11/18 06:06 Last Admin: 04/10/18 23:40 Dose: 125 mls/hr Lactulose (Chronulac) 10 gm PO BID [facility] Last Admin: 04/13/18 09:14 Dose: 10 gm Lorazepam (Ativan) 0.5 - 1 mg IVPUSH Q2H PRN PRN Reason: Anxiety Last Admin: 04/13/18 05:10 Dose: 1 mg Oxycodone HCl (Oxycodone) 5 mg PO Q4H PRN PRN Reason: Pain (moderate 4-6) Last Admin: 04/11/18 12:24 Dose: 5 mg Sodium Polystyrene Sulfonate (Kayexalate) 15 gm PO ONETIME ONE Stop: 04/14/18 11:01 Last Admin: 04/14/18 11:47 Dose: 15 gm Spironolactone (Aldactone) 50 mg PO DAILY [facility] Last Admin: 04/13/18 16:33 Dose: Not Given - Exam Quality Assessment: Reports: Supplemental Oxygen General: Reports: Alert, Cooperative, No Acute Distress Lungs: Reports: Clear to Auscultation, Normal Respiratory Effort Cardiovascular: Reports: Regular Rate, Regular Rhythm, No Murmurs GI/Abdominal Exam: Soft, Non-Tender, No Organomegaly, No Distention *Q Meaningful Use (DIS) - VTE *Q VTE Mechanical Contraindications *Q: Bilateral Lower Edema VTE Pharmacological Contraindications *Q: Thrombocytopenia
== END 2018-04-14 13:10 | DRG 605 ==
LOC: JP.ED 17:53 → JP.2SS 21:12 → UNDODISIN 04-11 12:31 → JP.MS 04-12 15:29
PROVIDERS: ADMIT Internal Medicine; ATTEND Hospitalist
DX: S30.0XXA Contusion of lower back and pelvis, initial encounter (principal); Z91.81 History of falling; L03.115 Cellulitis of right lower limb; N17.9 Acute kidney failure, unspecified; M54.5 Low back pain; D69.6 Thrombocytopenia, unspecified; K74.69 Other cirrhosis of liver; W18.30XA Fall on same level, unspecified, initial encounter; Y93.E1 Activity, personal bathing and showering; Y92.002 Bathroom of unspecified non-institutional (private) residence as the place of occurrence of the external cause; I10 Essential (primary) hypertension; K72.90 Hepatic failure, unspecified without coma; R53.1 Weakness; K59.00 Constipation, unspecified; E87.5 Hyperkalemia; Z87.01 Personal history of pneumonia (recurrent); Z87.11 Personal history of peptic ulcer disease; M19.90 Unspecified osteoarthritis, unspecified site; Z86.73 Personal history of transient ischemic attack (TIA), and cerebral infarction without residual deficits; Z88.1 Allergy status to other antibiotic agents
CPT/HCPCS: 36415; 72128; 72131; 80053; 82140; 85025; 96374; 99285; J3010; 80048; 80076; 85027; 93971-26; 93971-RT; 97162-GP; 97530-GP; 97535-GP; A9270-GY; J2060; J7030